=== PATIENT | male | born 1955 ===

== ENCOUNTER 2016-10-18 14:30 | Inpatient (IN) ==
[2016-10-18] MEDS ORDERED: NALOXONE 0.4 MG/ML VIAL ONE (14:50)
[2016-10-18] MEDS ORDERED: NALOXONE 0.4 MG/ML VIAL IV STA (14:53)
[2016-10-18] MEDS ORDERED: FLUMAZENIL 0.5 MG/5 ML VIAL IV ONE (15:23)
[2016-10-18] MEDS ORDERED: FLUMAZENIL 1 MG/10 ML VIAL IV ONE (15:30)
[2016-10-18] MEDS ORDERED: LORazepam 2 MG/1 ML VIAL ONE (15:37)
[2016-10-18] MEDS ORDERED: LORazepam 2 MG/1 ML VIAL IV STA (15:42)
--- NOTE | 2016-10-18 15:50 | Emergency Department Note ---
IAdi Emily, am scribing for, and in the presence of, Nick Rushing MD 15:38. Сергей Amaro Phillip K, MD, personally performed the services described in this documentation, ascribed by Yakelin Joshi in my presence, and it is both accurate and complete . Arrival - Arrival Chief Complaint: Seizure ED Nursing Triage Note: pt was pumping gas and went unresposive per . pt was unresposive at [facility] then woke up before having a sz. pt is sleepy but will answer questions Mode of Arrival: Stretcher Limitations: No Limitations Source: Patient - History of Present Illness HPI Narrative: Pt is a 60 y/o male who came to ED by EMS from [facility] for further evaluation of syncope and seizure activity that happened earlier today. Pt was pumping gas when he went unresponsive in front of , with possible of seizure after, but no activity happened, per spouse. He has no hx of seizure prior to this. He had bowel incontinence during episode, along with having one syncopal episode last week as well. Pt is sleepy in ED but reacts to stimuli and commands. Pt' s BP is low, 90/58 in ED. 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 Pt takes tacrolimus and mycophenolate for antirejection drugs. Pt's baseline creatinine 1.8 (per Dr. Barrera) and today was 2.9. Pt's head CT had no acute findings from [facility] and EKG showed sinus bradycardia of 58. Spouse notes that his heart medication and BP medication are fighting each other , and she is unsure of how much he took of what, this morning. Onset (ago): hour(s) Consistency: constant, intermittent Severity: moderate Severity scale (1-10): 5 Quality: other Allergies/Adverse Reactions: Allergies Allergy/AdvReac Type Severity Reaction Status Date / Time No Known Allergies Allergy Verified 07/28/15 13:55 Home Medications: Home Medications Medication Instructions Recorded Confirmed Type Tacrolimus [Prograf] 1 mg PO BID 07/28/15 11/05/15 History Aspirin [Ecotrin] 81 mg PO DAILY #100 tablet. 10/24/15 11/05/15 Rx Cholecalciferol (Vitamin D3) 2 tablet PO BID #120 tablet 10/24/15 11/05/15 Rx [Vitamin D3] Furosemide Tab [Lasix Tab] 40 mg PO BID #100 tablet 10/24/15 11/05/15 Rx Magnesium Chloride [Slow-Mag] 71.5 mg PO BID #120 tablet. 10/24/15 11/05/15 Rx Mycophenolate Mofetil Cap 750 mg PO BID #90 capsule 10/24/15 11/05/15 Rx [Cellcept] Spironolactone [Aldactone] 25 mg PO DAILY #60 tablet 10/24/15 11/05/15 Rx predniSONE TAB [PredniSONE] 5 mg PO DAILY #60 tablet 10/24/15 11/05/15 Rx Carvedilol [Carvedilol] 25 mg PO BID 11/05/15 11/05/15 History Review of System - Review of System 12 point system: reviewed and no additional remarkable complaints except as stated - Review of System Constitutional: Absent: fever Cardiovascular: Present: syncope (and possible seizure with no activity) Skin: Absent: rash Medical,Surgical,& Family Hx - Medical History Cardio: History of: Hypertension, [place], Cardiovascular Problems (STENTS) HEENT: History of: Eye Problem (GLASSES) Endocrine: No history of: Diabetes Mellitus (IDDM) Renal: History of: Renal Failure Musculoskeletal: History of: Amputation, Back/Neck Problems Other: History of: Skin Problems (skin cancer treated with radiation therapy) - Surgical History Cardiac Surgeries: Sugical HX of: Cardiac Catheterization Thoracic Surgeries: Surgical HX of;: Kidney (Renal Surgery) (TRANSPLANT 2004), Organ Transplant (renal transplant in 2004 at [facility]) Neurologic Surgeries: Patient denies: Neurologic Surgery HEENT Surgeries: Patient denies: Tonsilectomy & Adenoidectomy Abdominal Surgeries: Surgical HX of: Abdominal Surgery, Cholecystectomy, Colonoscopy, EGD Patient denies: Appendectomy Reproductive Surgeries: Surgical HX of;: Genitourinary Surgery Orthopedic Surgeries: Patient denies;: Total Hip Replacement, Total Knee Replacement - Family History Family History: Reports;: Family Hypertension - Social History Smoking Status: Current every day smoker Frequency of Alcohol Use: None Type of Drug Use: None Marital Status: Lives With:: Spouse Functional capacity: independent ambulation Exam Vital Signs: Vital Signs Temperature 97.2 F L 10/18/16 14:35 Pulse Rate 52 L 10/18/16 17:06 Respiratory Rate 12 10/18/16 17:06 Blood Pressure 131/76 10/18/16 17:06 O2 Sat by Pulse Oximetry 100 10/18/16 17:06 - General General appearance: lethargic (but follows commands) - Head Head exam: Present: atraumatic, normocephalic - Eye Eye exam: Present: PERRL (pupils are small but reactive), EOMI - ENT ENT exam: Present: mucous membranes moist. Absent: mucous membranes dry - Chest Chest inspection: Present: symmetric chest wall rise - Respiratory Respiratory exam: Present: normal lung sounds bilaterally. Absent: respiratory distress - Cardiovascular Cardiovascular exam: Present: bradycardia, normal heart sounds - Extremities Exam Extremities exam: Present: full ROM. Absent: pedal edema - Neurological Exam Neurological exam: Present: CN II-XII intact. Absent: motor sensory deficit - Skin Skin exam: Present: warm, dry Course Course Narrative: Patient discussed with the hospitalist will admit for further evaluation. Hospital desires patient be intubated to protect airway. We will intubated in the ED before sent upstairs. Procedures - Intubation Time out performed: Yes sedative: Etomidate paralytic: Vecuronium Laryngoscope: fiber optic video scope Assist Device Used: fiber optic device ET Tube Size: 8 Tube Placement Confirmation: visualized tube passing through cords, equal breath sounds bilaterally, no breath sounds over epigastrium, confirmation by capnometry Patient Tolerated Procedure: well, no complications Intubation Complications: none Results - Labs CBC & BMP: 10/18/16 16:27 10/18/16 16:27 Lab Results: I have reviewed the patients labs (I reviewed the labs from [facility] Labs: Laboratory Tests 10/18/16 16:27 WBC 16.7 H RBC 3.53 L Hgb 10.9 L Hct 32.0 L Plt Count 208 MPV 9.3 L Neut % (Auto) 89.6 H Lymph % (Auto) 2.8 L Neut # (Auto) 15.0 H Lymph # (Auto) 0.5 L [place] # (Auto) 1.1 H Laboratory Tests 10/18/16 10/18/16 10/18/16 16:27 16:27 16:27 Sodium 140 Potassium 3.1 L Chloride 106 Carbon Dioxide 22 Anion Gap 15.1 H BUN 67 H Creatinine 2.40 H GFR Calculation 29 BUN/Creatinine Ratio 27.00 H Glucose 179 H Calculated Osmolality 301.4 Lactic Acid 1.8 Calcium 8.8 Phosphorus 3.6 Magnesium 1.9 Total Bilirubin 0.80 AST 20 ALT 26 Alkaline Phosphatase 80 Ammonia Total Protein 6.5 Albumin 3.3 L Globulin 3.2 Albumin/Globulin Ratio 1.0 L Triglycerides 84 Cholesterol 116 LDL Cholesterol 63.0 VLDL Cholesterol 16.8 HDL Cholesterol 48 Heart Disease Risk Ratio 2.42 10/18/16 16:27 Sodium Potassium Chloride Carbon Dioxide Anion Gap BUN Creatinine GFR Calculation BUN/Creatinine Ratio Glucose Calculated Osmolality Lactic Acid Calcium Phosphorus Magnesium Total Bilirubin AST ALT Alkaline Phosphatase Ammonia 23 Total Protein Albumin Globulin Albumin/Globulin Ratio Triglycerides Cholesterol LDL Cholesterol VLDL Cholesterol HDL Cholesterol Heart Disease Risk Ratio - Diagnostic Findings Procedure: CT: report reviewed by me (CT head scan done at [facility] shows no acute intracranial abnormality.), Ultrasound: report reviewed by me (Carotid: Mild atherosclerotic changes at the bifurcations and origins of the internal carotid arteries. No significant flow-limiting stenosis.) Critical Care Time Critical Care Time: Yes Total Critical Care Time: 30 Disposition Clinical Impression: Altered mental status, Seizure, Hypotension, Syncope Case discussed with: patient, patient's family Disposition: Still a Patient Condition: Stable
--- NOTE | 2016-10-18 15:58 | Hospitalist History & Physical ---
<Jordi Fu - Last Filed: 10/18/16 16:31> Assessment and Plan (1) Syncope and collapse Status: Acute Assessment and plan: The patient was grossly altered at the time of ED presentation. Multiple reversal agents were given with minimal success. In addition, the patient's GCS was noted at 3 and the patient was observed to be experiencing Babinski reflexes. The patient failed to respond to painful stimuli. At this point, we are not certain if the patient's altered mental status secondary to benzodiazepine use or if the patient has experienced a true neurological event. We will reorder CT head to reevaluate. We will order carotid Dopplers and echocardiogram to evaluate for possible causes of syncope. In addition, we are greatly concerned regarding the patient's ability to be able to protect his airway. Although the patient is saturating appropriately now, we feel that the patient may indeed become compromised at some point in time. We have spoke with the ED staff and Dr. Rushing has agreed to electively intubate the patient. We will consult neurology to evaluate and assist during the clinical encounter. (2) Acute on chronic renal insufficiency Status: Acute History of Present Illness Chief complaint: Syncope History of present illness: This is a very pleasant 52-year-old male that presented to the ED at [facility] this afternoon for the evaluation of syncope. The patient has a very long and complex medical history significant for renal failure, IgA nephropathy, hypertension, myocardial infarction, skin cancer, chronic neck and back pain, and current nicotine use. 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 At the time of interview, the patient was grossly altered. His who was present at bedside service historian. The reported the onset of symptoms today. She reported that she and the patient were at a local gas station pumping gas into the car when the patient became very weak and subsequently passed out. She reported that he was able to tell her that he was "feeling strange" and proceeded to lower himself to the ground. She in turn got out of the car and along with the help of another person present at the gas station, assist the patient into the car. She reported that she was less than 1 mile away from the [facility]. She proceeded to transport the patient there for further evaluation.The patient was assessed at the time of presentation at the [facility]. Shortly upon arrival, the patient experienced seizure activity. A CT scan was performed which was essentially unremarkable. The patient was subsequently transferred to [facility] for further evaluation. The patient was assessed at the time of ED presentation. The patient was noted to be grossly lethargic. Multiple reversal agents were administered with minimal results. Shortly after arrival here at [facility] , the patient experienced another episode of seizure activity and Lorazepam was given. At this time of assessment, the patient was noted to be unresponsive. In addition, the patient's GCS was noted at 3. After brief discussion with both Dr. Rushing and Dr. Dougherty, the patient will be admitted to the hospitalist service for continuation of care. Due to the severity of the patient's current neurological status, a neurology consultation has been requested. Incidentally, the reported that the patient had an episode similar in nature on last week in which he experienced syncope and bowel incontinence. She reported that the patient has never been diagnosed with any type of seizure disorder in the past. Home medications have been reviewed and reconciled. Home medications have been placed on hold due to gross lethargy. CODE STATUS discussed; patient is a FULL CODE. Home Medications Medication Instructions Recorded Confirmed Type Tacrolimus [Prograf] 1 mg PO BID 07/28/15 11/05/15 History Aspirin [Ecotrin] 81 mg PO DAILY #100 tablet. 10/24/15 11/05/15 Rx Cholecalciferol (Vitamin D3) 2 tablet PO BID #120 tablet 10/24/15 11/05/15 Rx [Vitamin D3] Furosemide Tab [Lasix Tab] 40 mg PO BID #100 tablet 10/24/15 11/05/15 Rx Magnesium Chloride [Slow-Mag] 71.5 mg PO BID #120 tablet. 10/24/15 11/05/15 Rx Mycophenolate Mofetil Cap 750 mg PO BID #90 capsule 10/24/15 11/05/15 Rx [Cellcept] Spironolactone [Aldactone] 25 mg PO DAILY #60 tablet 10/24/15 11/05/15 Rx predniSONE TAB [PredniSONE] 5 mg PO DAILY #60 tablet 10/24/15 11/05/15 Rx Carvedilol [Carvedilol] 25 mg PO BID 11/05/15 11/05/15 History Allergies Allergy/AdvReac Type Severity Reaction Status Date / Time No Known Allergies Allergy Verified 07/28/15 13:55 Medical,Surgical,& Family Hx - Medical History Cardio: History of: Hypertension, [place], Cardiovascular Problems (STENTS) Neurology: No history of: Seizures HEENT: History of: Eye Problem (GLASSES) Endocrine: No history of: Diabetes Mellitus (IDDM) Renal: History of: Renal Failure Musculoskeletal: History of: Amputation, Back/Neck Problems Other: History of: Skin Problems (skin cancer treated with radiation therapy) - Surgical History Cardiac Surgeries: Sugical HX of: Cardiac Catheterization Thoracic Surgeries: Surgical HX of;: Kidney (Renal Surgery) (TRANSPLANT 2004), Organ Transplant (renal transplant in 2004 at [facility]) Neurologic Surgeries: Patient denies: Neurologic Surgery HEENT Surgeries: Patient denies: Tonsilectomy & Adenoidectomy Abdominal Surgeries: Surgical HX of: Abdominal Surgery, Cholecystectomy, Colonoscopy, EGD Patient denies: Appendectomy Reproductive Surgeries: Surgical HX of;: Genitourinary Surgery Orthopedic Surgeries: Patient denies;: Total Hip Replacement, Total Knee Replacement - Family History Family History: Reports;: Family Hypertension - Social History Smoking Status: Current every day smoker Have you smoked in the last 12 months: Yes Time spent discussing smoking cessation with patient: more than 10 minutes Frequency of Alcohol Use: None Type of Drug Use: None Marital Status: Lives With:: Spouse Functional capacity: independent ambulation ROS unobtainable: due to mental status 12 point system: reviewed and no additional remarkable complaints except as stated - Constitutional Constitutional: Present: lethargy, weakness - EENT Eyes: Absent: blurry vision, diplopia, loss of vision Ears: Absent: as per HPI, decreased hearing, ear discharge Nose, mouth and throat: Present: as per HPI. Absent: dysphagia, epistaxis - Cardiovascular Cardiovascular: Present: lightheadedness. Absent: dyspnea, orthopnea - Respiratory Respiratory: Absent: cough, dyspnea - Gastrointestinal Gastrointestinal: Absent: abdominal pain, bloating - Genitourinary Genitourinary: Absent: difficulty urinating, dysuria - Musculoskeletal Musculoskeletal: Absent: arthralgias, back pain - Neurological Neurological: Present: convulsions, focal weakness, syncope - Psychiatric Psychiatric: Absent: anxiety, auditory hallucinations - Endocrine Endocrine: Absent: cold intolerance, fatigue Exam - Constitutional Vitals: Period Temp Pulse Resp BP Sys/Mckinney Pulse Ox Last 24 Hr 97.2 F-97.2 F 54-54 16-16 90-90/58-58 100 General appearance: normal weight - Head Head exam: Present: normal inspection, normocephalic, atraumatic - Eye Eye exam: Present: EOMI Pupils: Present: constricted - ENT ENT exam: Present: normal exam, normal external ear exam, normal oropharynx - Neck Neck exam: Present: normal inspection. Absent: lymphadenopathy, meningismus, tenderness, thyromegaly - Respiratory Respiratory exam: Present: clear to auscultation bilaterally. Absent: rales, rhonchi, stridor, wheezes - Cardiovascular Cardiovascular exam: Absent: carotid bruit, diastolic murmur, gallop, JVD, rubs , systolic murmur, tachycardia - GI/Abdominal GI/Abdominal exam: Present: normal bowel sounds, soft - Extremities Exam Extremities exam: Present: normal inspection, normal capillary refill, full ROM. Absent: edema - Back Exam Back exam: Present: normal inspection - Neurological Exam Neurological exam: Present: altered, motor sensory deficit (DTR; 1+), other ( Babinski reflexes noted; GCS-3) - Psychiatric Psychiatric exam: Present: other (unrepsonsive) - Skin Skin exam: Present: normal color, warm, dry (Pupils 2+; pinpoint; ) <White,Kennedi R - Last Filed: 10/18/16 16:48> Assessment and Plan (1) Syncope and collapse Status: Acute Assessment and plan: Could be secondary to hypotension. Hold blood pressure medicines. Checking for adrenal insufficiency. We will give stress dose steroid Current Visit: No (2) Unresponsive Status: Acute Assessment and plan: Unresponsive to painful stimuli and sternal rub. Patient received some Ativan for seizures in the emergency room. Stat head CT to look for bleed. Concern as he has bilateral upgoing Babinski's. Stat MRI and MRA of the head. Carotid ultrasound already done, need stat echo, intubate for airway protection consult Dr. Lynn for management of vent Current Visit: Yes (3) Acute on chronic renal failure Status: Acute Assessment and plan: Aggressively hydrate, hold all blood pressure medicines. Fear he may be in jeopardy of losing his transplant. Consult Dr. Mena SHRUTHI Current Visit: Yes (4) Seizures Status: Acute Assessment and plan: keppra and versed, intubation for airway protection, Consult Dr. De Paz, EEG. Current Visit: Yes (5) Hypotension Status: Acute Assessment and plan: NS bolus per sepsis order set. lactic acid ordered. Current Visit: Yes (6) History of renal transplant Status: Chronic Assessment and plan: consult dr. Mena stress dose steroids and tacrolimus and mycophenolate Current Visit: No (7) Hypokalemia Status: Acute Assessment and plan: based on [facility], will repeat Current Visit: No (8) Leukocytosis Status: Acute Assessment and plan: sepsis order set used, blood cx, repeat cbc, ua, zosyn, daptomycin Current Visit: Yes History of Present Illness History of present illness: Mr. Claudio is a 60 year old male seen and examined. agree with above. Patient unresponsive to sternal rub, asked Dr. Castorena to electively intubate patient for airway protection. Medical,Surgical,& Family Hx - Medical History Neurology: History of: Seizures Exam - Constitutional Vitals: Period Temp Pulse Resp BP Sys/Mckinney Pulse Ox Last 24 Hr 97.2 F-97.2 F 54-54 16-16 90-90/58-58 100 General appearance: severe distress - Eye Eye exam: Absent: scleral icterus - Respiratory Respiratory exam: Present: decreased breath sounds - Cardiovascular Cardiovascular exam: Present: regular rate and rhythm - Neurological Exam Neurological exam: Present: other Results - Labs Labs: [facility] labs WBC is 14.5, hemoglobin 12, platelets 226, BUN 71, sodium 139, potassium 3.2, troponin less than 0.05, CPK 51, calcium 9.1, creatinine 2.9, PT 10.4, INR 1, PTT 27. PH 7.39, PCO2 32, PO2 93, lactic acid 1.6, bicarb 19 - Diagnostic Findings Procedure: Chest x-ray: report reviewed by me (Nothing acute. Talk to our records), CT: report reviewed by me (Head CT negative per [facility] record)
[2016-10-18] MEDS ORDERED: POTASSIUM CHLORIDE RIDER 10 MEQ in PREMIX 1 EACH IV SCH (16:30)
[2016-10-18 16:42] LABS: Basophils % 0.1 % (0.0-0.8); Eosinophils % 0.1 % (0.00-10.9); Hemoglobin 10.9 GM/DL (14.0-18.0); Immature Granulocytes % 0.9 %; Immature Granulocytes Absolute 0.15 #; Lymphocytes # 0.5 10*3/uL (1.4-4.0); Lymphocytes % 2.8 % (21.2-54.2); Mean Corpuscular HGB Conc 34.1 GM/DL (32-36); Mean Corpuscular Hemoglobin 31 PG (27-34); Mean Corpuscular Volume 90.7 FL (87-102); Mean Platelet Volume 9.3 FL (9.6-12.0); Monocytes # 1.1 10*3/uL (0.11-0.8); Monocytes % 6.5 % (1.7-12.7); Neutrophils % 89.6 % (38.7-73.9); Platelet Count 208 T/CUMM (130-400); Red Blood Count 3.53 MC/CUMM (3.8-5.5); Red Cell Distribution Width 13.4 % (9.3-17.3); White Blood Count 16.7 T/CUMM (4-12)
--- NOTE | 2016-10-18 16:44 | Ultrasound Report ---
Exam: Carotid Doppler Date: October 18, 2016 at 1555 hours Indication: Syncope Technique: Duplex scan of the bilateral carotid arteries using B-mode/grayscale imaging and Doppler spectral analysis and color flow. Findings: Right Flow velocities centimeters per second Common carotid artery: 84.6 cm/s Proximal ICA: 61.3 cm/s Distal ICA: 97.1 cm/s External carotid artery: 126.6 cm/s Vertebral artery: 62.5 cm/s ICA/CCA ratio: 1.1 Measurements in millimeters Distal ICA: 0.58 cm Left: Flow velocities centimeters per second Common carotid artery: 137.6 cm/s Proximal ICA: 77.2 cm/s Distal ICA: 77.3 cm/s External carotid artery: 102 cm/s Vertebral artery: 49.5 cm/s ICA/CCA ratio: 0.6 Measurements in millimeters Distal ICA: 0.53 No significant atherosclerotic plaque or luminal stenosis is evident within either internal carotid artery. Color flow is present in all visualized vessels with Doppler analysis. Impression: 1. Mild atherosclerotic changes at the bifurcations and origins of the internal carotid arteries. No significant flow-limiting stenosis Today studies were performed utilizing indirect NASCET criteria The ultrasound images were stored and captured PROCEDURE INTERPRETED AT [facility] DEPARTMENT OF RADIOLOGY Final Report Signed by: Asael Butts
--- NOTE | 2016-10-18 16:54 | CT Report ---
Exam: CT head without intravenous contrast Clinical History: 60-year-old male presents with seizure and altered mental status Technique: Axial computed tomography images of the head/brain without intravenous contrast Comparison: October 21, 2015 Findings: Brain: Mild microangiopathic small vessel ischemic changes, stable. Butts-white matter distinction maintained. No mass effect. No intra or extra-axial hemorrhage. Ventricles: Unremarkable. No ventriculomegaly. Bones/joints: Calvarium is intact Soft tissues: Unremarkable Sinuses: No active paranasal sinus process Mastoid air cells: Unremarkable visualized. Impression: 1. No acute intracranial abnormality. PROCEDURE INTERPRETED AT [facility] DEPARTMENT OF RADIOLOGY Final Report Signed by: Asael Butts
[2016-10-18 17:09] LABS: Risk Ratio 2.42; VLDL CHOLESTEROL 16.8 MG/DL
[2016-10-18 17:10] LABS: Albumin 3.3 G/DL (3.4-5.0); Bilirubin,Total 0.8 MG/DL (0.2-1.0); Calcium 8.8 MG/DL (8.5-10.1); Magnesium 1.9 MG/DL (1.8-2.4); Osmolality,Calculated 301.4 MOS/KG (273-304); Phosphorous 3.6 MG/DL (2.5-4.9); Potassium 3.1 MMOL/L (3.5-5.1); Total Protein 6.5 G/DL (6.4-8.3)
--- NOTE | 2016-10-18 17:17 | XRay Report ---
Portable chest October 18, 2016 at 1649 hours Indication: Shortness of breath, respiratory failure Comparison: October 16, 2015 Findings: Cardiomediastinal contours are stable. Satisfactory intubation and esophageal gastric tube placement. Lungs are clear bilaterally. No acute osseous abnormalities. Visualized upper abdomen demonstrates no acute pathology. Impression: Uncomplicated intubation and esophageal gastric tube placement. No acute cardiopulmonary findings PROCEDURE INTERPRETED AT [facility] DEPARTMENT OF RADIOLOGY Final Report Signed by: Asael Butts
[2016-10-18] MEDS ORDERED: LABETALOL 20 MG/4 ML SYRINGE IV PRN (17:22)
[2016-10-18 17:45] LABS: ABG Base Excess -3.6 MMOL/L (-2.5-2.5); ABG HCO3 21.4 MMOL/L (20-26); ABG Oxygen Saturation 99.5 % (95-100); ABG PH 7.382 (7.35-7.45); ABG TCO2 18.7 MMOL/L (23-27); Pt O2 Delivery Device Ventilator
[2016-10-18 17:49] LABS: Apearance,Urine CLEAR (Clear); Bacteria,Urine Occasional /HPF (Few); Bilirubin,Urine Negative (Negative); Blood, Urine Negative (Negative); Glucose,Urine (UA) Negative (Negative); Hyaline Casts,Urine 19 /LPF (0-3); Ketones,Urine Negative (Negative); Mucus,Urine Occasional /LPF (Occasional); Nitrite,Urine Negative (Negative); Protein,Urine Negative; Squamous Epithelial Cell,Urine Occasional /HPF (0-10); Urine Color Yellow (Yellow); Urine Urobilinogen < 2.0 EU/DL (0.2-1.0); WBC,Urine 1 /HPF (0-6)
[2016-10-18] MEDS ORDERED: SODIUM CHLORIDE 0.9% 2,000 ML IV ONE (18:00)
[2016-10-18 18:02] LABS: Barbiturates Screen,Urine Negative (Negative); Benzodiazepines Screen,Urine Negative (Negative); Cannabinoid Screen,Urine Negative (Negative); Opiate Screen,Urine Negative (Negative); Phencyclidine Screen,Urine Negative (Negative)
[2016-10-18] MEDS: HYDROCORTISONE 100 MG VIAL IV SCH (18:08)
[2016-10-18] MEDS: PIPERACILLIN/TAZOBACTAM 3,375 MG in SODIUM CHLORIDE 0.9% 100 ML IV SCH (18:20)
--- NOTE | 2016-10-18 18:25 | Nephrology Consult Note ---
History of Present Illness Chief complaint: CRF, renal transplant History of present illness: Mr. Claudio is a 60 year old male who had a witnessed syncopal episode while pumping gas. He reportedly had a seizure after this in the [facility] ER. He was poorly responsive on arrival here. He was intubated to protect his airway. He was transiently hypotensive. Systolic blood pressure is now in the 140s. He is not requiring pressors. Heart rate is in the 40s. 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 He received a transplant in 2004. He has been followed by Dr. Barrera Home Medications Medication Instructions Recorded Confirmed Type Tacrolimus [Prograf] 1 mg PO BID 07/28/15 11/05/15 History Aspirin [Ecotrin] 81 mg PO DAILY #100 tablet. 10/24/15 11/05/15 Rx Cholecalciferol (Vitamin D3) 2 tablet PO BID #120 tablet 10/24/15 11/05/15 Rx [Vitamin D3] Furosemide Tab [Lasix Tab] 40 mg PO BID #100 tablet 10/24/15 11/05/15 Rx Magnesium Chloride [Slow-Mag] 71.5 mg PO BID #120 tablet. 10/24/15 11/05/15 Rx Mycophenolate Mofetil Cap 750 mg PO BID #90 capsule 10/24/15 11/05/15 Rx [Cellcept] Spironolactone [Aldactone] 25 mg PO DAILY #60 tablet 10/24/15 11/05/15 Rx predniSONE TAB [PredniSONE] 5 mg PO DAILY #60 tablet 10/24/15 11/05/15 Rx Carvedilol [Carvedilol] 25 mg PO BID 11/05/15 11/05/15 History Allergies Allergy/AdvReac Type Severity Reaction Status Date / Time No Known Allergies Allergy Verified 07/28/15 13:55 Medical,Surgical,& Family Hx - Medical History Cardio: History of: Hypertension, [place], Cardiovascular Problems (STENTS) Neurology: History of: Seizures HEENT: History of: Eye Problem (GLASSES) Endocrine: No history of: Diabetes Mellitus (IDDM), Diabetes Mellitus (NIDDM) Renal: History of: Renal Failure Musculoskeletal: History of: Amputation, Back/Neck Problems Other: History of: Cancer, Skin Problems (skin cancer treated with radiation therapy) - Surgical History Cardiac Surgeries: Sugical HX of: Cardiac Catheterization Thoracic Surgeries: Surgical HX of;: Kidney (Renal Surgery) (TRANSPLANT 2004), Organ Transplant (renal transplant in 2004 at [facility]) Neurologic Surgeries: Patient denies: Neurologic Surgery HEENT Surgeries: Patient denies: Tonsilectomy & Adenoidectomy Abdominal Surgeries: Surgical HX of: Abdominal Surgery, Cholecystectomy, Colonoscopy, EGD Patient denies: Appendectomy Reproductive Surgeries: Surgical HX of;: Genitourinary Surgery Orthopedic Surgeries: Surgical HX of;: Total Hip Replacement Patient denies;: Total Knee Replacement - Family History Family History: Reports;: Family Hypertension - Social History Smoking Status: Former smoker Frequency of Alcohol Use: None Type of Drug Use: None Review of Systems ROS unobtainable: due to endotracheal tube Exam - Vital Signs Vital signs: Period Temp Pulse Resp BP Sys/Mckinney Pulse Ox Last 24 Hr 97.2 F-97.2 F 52-54 12-16 90-131/58-76 100-100 Exam: Gen.: Sedated on ventilator ENT: Pupils equal round reactive to light. Neck: Supple. No JVD or bruit. Cardiovascular: Regular rate and rhythm. No murmur rub or gallop Lungs: Clear Abdomen: Soft. Nontender. Positive bowel sounds. No organomegaly Extremities: No edema Results - Labs CBC & BMP: 10/18/16 16:27 10/18/16 16:27 Assessment and Plan (1) Chronic renal failure Status: Chronic Assessment and plan: 60-year-old man with: * Renal transplant 2004. Tacrolimus level ordered * Chronic renal failure. Creatinine measured 3-3.7 on several occasions October 2015. One reading of 1.9 also October 2015. More recent baseline not known * Syncope. Heart rate is in the low 40s. No ischemic changes. Coreg held * Remote SD * Hypertension Current Visit: No Qualifiers: Chronic kidney disease stage: stage 3 (moderate) Qualified Code(s): N18.3 - Chronic kidney disease, stage 3 (moderate) (2) Seizure Status: Acute Current Visit: Yes (3) Syncope Status: Acute Current Visit: Yes (4) History of renal transplant Status: Chronic Current Visit: No
[2016-10-18] MEDS ORDERED: SODIUM CHLORIDE 0.9% 1,000 ML IV ONE (18:27)
[2016-10-18] MEDS: MIDAZOLAM 100 MG in SODIUM CHLORIDE 0.9% 80 ML IV SCH (18:31)
[2016-10-18] MEDS: ASPIRIN 300 MG SUPP RECTAL SCH (19:34)
[2016-10-18 21:43] LABS: Burr Cells Few; Platelet Estimate Normal; Poikilocytosis Slight
[2016-10-18] MEDS: FAMOTIDINE 20 MG/2 ML VIAL IV SCH (21:50)
[2016-10-18] MEDS: ENOXAPARIN 40 MG/0.4 ML SYRINGE SUBCUT SCH (21:50)
[2016-10-18] MEDS: POTASSIUM CHLORIDE RIDER 10 MEQ in PREMIX 1 EACH IV PRN ×3 (21:50→23:52)
[2016-10-18] MEDS: TACROLIMUS 0.5 MG CAPSULE PO SCH (21:50)
[2016-10-18] MEDS: MYCOPHENOLATE MOFETIL 250 MG CAPSULE PO SCH (21:50)
[2016-10-19] MEDS: HYDROCORTISONE 100 MG VIAL IV SCH ×4 (00:14→18:20)
[2016-10-19] MEDS: PIPERACILLIN/TAZOBACTAM 3,375 MG in SODIUM CHLORIDE 0.9% 100 ML IV SCH ×3 (01:19→18:25)
[2016-10-19 03:47] LABS: ABG Base Excess -5.7 MMOL/L (-2.5-2.5); ABG HCO3 19.8 MMOL/L (20-26); ABG Oxygen Saturation 99.4 % (95-100); ABG PCO2 34.7 MM HG (35-48); ABG PH 7.351 (7.35-7.45); ABG TCO2 17.3 MMOL/L (23-27); Allen Test Positive; Pt O2 Delivery Device Ventilator
[2016-10-19] MEDS: MIDAZOLAM 100 MG in SODIUM CHLORIDE 0.9% 80 ML IV SCH ×2 (05:26→18:54)
[2016-10-19 05:56] LABS: Basophils % 0.1 % (0.0-0.8); Hematocrit 31.1 VOL% (42.0-52.0); Hemoglobin 10.5 GM/DL (14.0-18.0); Immature Granulocytes % 0.7 %; Immature Granulocytes Absolute 0.08 #; Lymphocytes # 0.4 10*3/uL (1.4-4.0); Lymphocytes % 3.4 % (21.2-54.2); Mean Corpuscular HGB Conc 33.8 GM/DL (32-36); Mean Corpuscular Hemoglobin 31 PG (27-34); Mean Corpuscular Volume 91.7 FL (87-102); Mean Platelet Volume 9.6 FL (9.6-12.0); Monocytes # 0.3 10*3/uL (0.11-0.8); Monocytes % 2.6 % (1.7-12.7); Neutrophils # 11.1 10*3/uL (1.4-7.4); Neutrophils % 93.2 % (38.7-73.9); Platelet Count 197 T/CUMM (130-400); Red Blood Count 3.39 MC/CUMM (3.8-5.5); Red Cell Distribution Width 13.6 % (9.3-17.3); White Blood Count 11.9 T/CUMM (4-12)
[2016-10-19 06:38] LABS: Hypochromasia 1+; Lymphocytes 3 % (20-55); Segmented Neutrophils 95 % (50-85); Total Cells Counted 100
[2016-10-19 06:39] LABS: Acanthocytes Few; Microcytosis 1+; Ovalocytes Slight
[2016-10-19 06:40] LABS: Platelet Estimate Adequate
[2016-10-19 06:47] LABS: Risk Ratio 2.48; VLDL CHOLESTEROL 13.6 MG/DL
[2016-10-19 06:49] LABS: Albumin 2.9 G/DL (3.4-5.0); Bilirubin,Total 1.2 MG/DL (0.2-1.0); Calcium 8.7 MG/DL (8.5-10.1); Osmolality,Calculated 304.1 MOS/KG (273-304); Potassium 3.4 MMOL/L (3.5-5.1); Total Protein 5.9 G/DL (6.4-8.3)
[2016-10-19] MEDS: FAMOTIDINE 20 MG/2 ML VIAL IV SCH ×2 (09:16→20:36)
[2016-10-19] MEDS: MYCOPHENOLATE MOFETIL 250 MG CAPSULE PO SCH ×2 (09:17→20:36)
[2016-10-19] MEDS: TACROLIMUS 0.5 MG CAPSULE PO SCH ×2 (09:17→20:36)
[2016-10-19] MEDS: ASPIRIN 300 MG SUPP RECTAL SCH ×2 (09:17→19:42)
--- NOTE | 2016-10-19 09:48 | EKG Report ---
Stationary ECG Study [facility] ER Test Date: 10/18/2016 2:52:47 PM Pat Name: JUSTIN CULVER Department: Room: 116 Gender: M [employer]: : 1955 Requested by: Nick Amaya Order Number: [id number] Reading MD: JAMES RAMOS Intervals Parker Rate: 53 P: 2 WV: 184 QRS: -23 QRSD: 99 T: -81 QT: 453 QTc: 437 Interpretive Statements SINUS BRADYCARDIA BORDERLINE LEFT AXIS DEVIATION LEFT VENTRICULAR HYPERTROPHY AND ST-T CHANGE Electronically Signed On 10-19-16 15:32:41 CDT by JAMES RAMOS [email or web address]
--- NOTE | 2016-10-19 11:03 | Hospitalist Progress Note ---
Assessment and Plan (1) Acute on chronic renal insufficiency Status: Acute Assessment and plan: The patient's chronic kidney disease stage III has a usual 1.8 mg/dL creatinine baseline. The patient has had nausea vomiting and diarrhea. Liquid stools remain. Will go to study of the stools to see if there is any bacterial infection. We will hydrate as required and consult with the environmental health and safety intern concerning the patient's tacrolimus. Current Visit: No (2) History of renal transplant Status: Chronic Current Visit: No (3) Syncope and collapse Status: Acute Current Visit: No Hospitalist: Subjective Interval history: The patient presented to hospital with syncopal episode and tonic-clonic seizure activity. The patient is not having any jerking spells this morning. He is having liquid stools which are drained with a bowel management system. Chest is clear and abdomen soft. The patient is tolerating CPAP trials. Exam - Constitutional Vitals: Period Temp Pulse Resp BP Sys/Mckinney Pulse Ox Last 24 Hr 96.6 F-97.2 F 43-54 10-19 77-162/49-87 99-100 Exam: Constitutional System: Mild distress. No tremulousness. Head: Normocephalic, atraumatic. Ears, Nose and Throat System: No evidence of Otitis or Mastoiditis. No epistaxis or discharge Eyes System: Pupils equal, round, and reactive. Extraocular muscles intact. Neck: Supple, without adenopathy, No jugular venous distention. No thyromegaly , neck mass, or prior surgery apparent. Respiratory System: Chest clear to auscultation. Cardiovascular System: Heart with regular rate and rhythm. No murmur. GI System: Abdomen soft, nontender. Hypo-active bowel sounds present. There is a transplanted kidney in the right suprapubic area Musculoskeletal System: limbs with no pedal edema. Full distal pulses. Results - Labs CBC & BMP: 10/19/16 05:13 10/19/16 05:13 Lab Results: I have reviewed the past 24 hour labs
[2016-10-19 12:04] LABS: ABG Base Excess -5.6 MMOL/L (-2.5-2.5); ABG HCO3 19.8 MMOL/L (20-26); ABG Oxygen Saturation 99.6 % (95-100); ABG PCO2 31.3 MM HG (35-48); ABG PH 7.381 (7.35-7.45); ABG TCO2 16.7 MMOL/L (23-27)
[2016-10-19 12:23] LABS: Free T4 (Free Thyroxine) 0.93 NG/DL (0.76-1.46); Thyroid Stimulating Hormone 0.065 uIU/ml (0.358-3.74)
--- NOTE | 2016-10-19 13:01 | CT Report ---
Exam: CT scan of brain without contrast Date: 10/19/2016 Indication: Altered mental status changes stroke alert Comparison: 10/18/2016 Patient's classification: Inpatient ICU Technical: Images were obtained from the skull base to the vertex without the use of intravenous contrast. Dose reduction was performed with decreasing kv and mA and automated exposure Total DLP: 1081.1 mGy*cm Findings: The brainstem, cerebellum and cerebral hemispheres are intact. The paranasal sinuses are unremarkable. The mastoids are intact. The ventricles are located in normal position without midline shift or mass effect. There is slight asymmetry of the ventricular system right greater than left in size. The globes and sella are intact. The calvarium is unremarkable. Impression: 1. No acute hemorrhage, infarction or mass effect clearly demonstrated. PROCEDURE INTERPRETED AT [facility] DEPARTMENT OF RADIOLOGY Final Report Signed by: Dr. Rohan Silva
[2016-10-19 13:33] LABS: Basophils % 0.1 % (0.0-0.8); Hematocrit 31.9 VOL% (42.0-52.0); Hemoglobin 10.9 GM/DL (14.0-18.0); Immature Granulocytes % 0.5 %; Immature Granulocytes Absolute 0.06 #; Lymphocytes # 0.4 10*3/uL (1.4-4.0); Lymphocytes % 3.4 % (21.2-54.2); Mean Corpuscular HGB Conc 34.2 GM/DL (32-36); Mean Corpuscular Hemoglobin 31 PG (27-34); Mean Corpuscular Volume 91.4 FL (87-102); Mean Platelet Volume 9.5 FL (9.6-12.0); Monocytes # 0.3 10*3/uL (0.11-0.8); Monocytes % 2.8 % (1.7-12.7); Neutrophils # 10.4 10*3/uL (1.4-7.4); Neutrophils % 93.2 % (38.7-73.9); Platelet Count 204 T/CUMM (130-400); Red Blood Count 3.49 MC/CUMM (3.8-5.5); Red Cell Distribution Width 13.6 % (9.3-17.3); White Blood Count 11.2 T/CUMM (4-12)
[2016-10-19] MEDS: SODIUM CHLORIDE 0.9% 1,000 ML IV SCH (13:38)
[2016-10-19 13:41] LABS: Albumin 2.8 G/DL (3.4-5.0); Bilirubin,Total 0.7 MG/DL (0.2-1.0); Calcium 8.8 MG/DL (8.5-10.1); Osmolality,Calculated 306.8 MOS/KG (273-304); Potassium 3.6 MMOL/L (3.5-5.1); Total Protein 6.3 G/DL (6.4-8.3)
--- NOTE | 2016-10-19 13:46 | Pulmonology Consult Note ---
History of Present Illness Chief complaint: Seizure. bradycardia. Ventilator. Syncope History of present illness: Mr. Claudio is a 60 year old male whom I been asked see in pulmonary consultation for evaluation and treatment. This patient had an episode of syncope. He was referred here from [facility]. Shortly after arrival patient experienced seizure activity. He was extremely lethargic. He required intubation mechanical ventilation. This patient is sedated and was unable to give me a review of systems. Review of systems is therefore negative. I made ventilator adjustments on the patient during the night on 10/18/2016. I saw her much earlier this morning. He looks stronger and he was awake. Placed him on a T-tube and he did very well. Preparations were made to extubate the patient but before he was extubated he stopped breathing. He was placed back on the ventilator and at the present time I interpret this is a change in his neurological status. Neuro consult is pending He has a complex history. See below Allergies. None known Home medicines. Prograf 1 mg twice daily baby aspirin once a day, vitamin D3 2 tablets twice daily, Lasix 40 twice daily, Slow-Mag 71.5 mg twice daily, CellCept 750 mg p.o. twice daily, Aldactone 25 mg once a day, prednisone 5 mg daily, Coreg 25 mg twice daily Past history high blood pressure. Myocardial infarction. Cardiac stents. Cardiovascular disease. No past history of seizures. Past history of amputation. Chronic back and neck problems. History of skin cancers treated with radiation. Renal transplant in 2004. Transplant was done at [facility].tonsillectomy and adenoidectomy. Tonsillectomy and adenoidectomy. Cholecystectomy. Left total hip replacement. Social history. Smokes cigarettes on a daily basis. Denies alcohol and drugs. . Family history. Positive high blood pressure Chest x-ray. 10/18/2016. My interpretation. Normal heart size. Normal pulmonary arteries. No hilar adenopathy. Calcification aortic knob lung garcia are clear with no masses infiltrates or pulmonary edema. Endotracheal tube is in good position. Patient appears to have an implantable device in his lower thoracic spine. CT of the head. 10/18/2016. No acute hemorrhage, infarction or mass were clearly demonstrated. It was noted that the brain stem, cerebellum and cerebral hemispheres were intact. The paranasal sinuses were unremarkable. The mastoids were intact. The ventricles were located in normal position without a midline shift or mass-effect. There was slight asymmetry of the ventricular system. The right was greater than left in size. The globes and sella turcica were intact. The calvarium was unremarkable Microbiology. No growth. ABGs on mechanical ventilation and FiO2 of 50% at 3:30 AM today showed a pH is 7.35, PCO2 34.7, PO2 of 246 and a bicarb of 19.5 ABGs on 10/19/2016 on FiO2 of 50% and a T-tube showed a pH of 7.38, PCO2 of 31.3, PO2 of 212 and a bicarb of 19.8. These were taken before the apneic spell Lab. Admit sodium was 3.1 and what replacement is 3.4. Sodium is normal. Creatinine is 2.1 with a BUN of 66. Liver function tests are normal. Protein and albumin are low at 5.92.9 respectively. Admit white count was 16,700 with 89.6 segs. Today's white count is 11,900 with 93 segs. H&H is 10.5/31.1. Indices are normal. Platelets are 197,000. PTT is 29.5. Urinalysis shows no evidence of infection. Toxicology is negative. Physical exam. Vital signs. See below. No recorded fever. Psychiatric. Patient was alert and can cooperate. After his apneic spell he could not be aroused for 30-40 minutes. At the present time he is beginning to move around and try to wake up. Face. Symmetrical. No edema of the lips or tongue Neck. Symmetrical. No mass. No meningismus. Lymphatics. No submandibular cervical supraclavicular or epitrochlear adenopathy Chest. Clear breath sounds. Heart. No gallop Abdomen. Nondistended. Rare scattered bowel sounds and rectal deferred Extremities. No significant edema. Skin of the face and hands show no cancerous infectious lesions. No other areas of skin were examined. Neurologic. Prior to syncopal episode the cranial nerves appeared to be intact and patient moves all 4 extremities. The remainder the physical exam is negative Impression. 1. New onset of multiple seizures. Etiology undetermined. Neurology evaluation recommendations pending. 2. Acute episodes of true syncope while on T-tube. Order to extubate has been canceled 3. Renal transplant. On immunosuppressant agents. 4. High blood pressure 5. Past history of heart disease including stents and myocardial infarction 6. History of skin cancer 7. History of chronic back and neck problems. Patient appears to have an implantable device in his lower thoracic spine. 8. Past history of total knee replacement and left total hip replacement 9. See past history 10. Stool positive for blood. Recent history of nausea vomiting diarrhea. 11. History of heart disease requiring placement of stents. Past history of myocardial infarction Plan. 1. Weaning protocol which I started on 10/18/2016. Presently extubation has been canceled secondary to apneic episode. I wonder if this involved seizure activity. 2. Physical therapy protocol 3. Doppler venograms of the lower extremities. 4. H2 blockers. Patient has positive stool 5. Sputum for Gram stain culture and sensitivity 6. Daily chest x-rays and ABGs Home Medications Medication Instructions Recorded Confirmed Type Tacrolimus [Prograf] 1 mg PO BID 07/28/15 10/19/16 History Aspirin [Ecotrin] 81 mg PO DAILY #100 tablet. 10/24/15 10/19/16 Rx Furosemide Tab [Lasix Tab] 40 mg PO BID #100 tablet 10/24/15 10/19/16 Rx Mycophenolate Mofetil Cap 750 mg PO BID #90 capsule 10/24/15 10/19/16 Rx [Cellcept] Carvedilol [Carvedilol] 25 mg PO BID 11/05/15 10/19/16 History Bisacodyl Tab [Dulcolax Tab] 2 tablet PO TID PRN 10/19/16 10/19/16 History Cholecalciferol [Vitamin D3] 1,000 unit PO DAILY 10/19/16 10/19/16 History Cyclobenzaprine [Flexeril] 5 mg PO BID PRN 10/19/16 10/19/16 History Lubiprostone [Amitiza] 1 capsule PO DAILY 10/19/16 10/19/16 History Pantoprazole Tab [Protonix Tab] 40 mg PO DAILY 10/19/16 10/19/16 History Sod Phos Di, Stevens/K Phos Stevens 2 tablet PO BID 10/19/16 10/19/16 History [Phospho-Joie 250 Neutral Tab] Sodium Bicarb Tab 2 tablet PO BID 10/19/16 10/19/16 History Zinc Sulfate 220 mg PO DAILY 10/19/16 10/19/16 History predniSONE TAB [PredniSONE] 5 mg PO DAILY 10/19/16 10/19/16 History Allergies Allergy/AdvReac Type Severity Reaction Status Date / Time No Known Allergies Allergy Verified 07/28/15 13:55 Exam (Pulmonay) H&P - Constitutional Vitals: Period Temp Pulse Resp BP Sys/Mckinney Pulse Ox Last 24 Hr 96.6 F-97.2 F 43-54 10-19 77-162/49-87 99-100 Medical,Surgical,& Family Hx - Medical History Cardio: History of: Hypertension, [place], Cardiovascular Problems (STENTS) Neurology: History of: Seizures HEENT: History of: Eye Problem (GLASSES) Endocrine: No history of: Diabetes Mellitus (IDDM), Diabetes Mellitus (NIDDM) Renal: History of: Renal Failure Musculoskeletal: History of: Amputation, Back/Neck Problems Other: History of: Cancer, Skin Problems (skin cancer treated with radiation therapy) - Surgical History Cardiac Surgeries: Sugical HX of: Cardiac Catheterization Thoracic Surgeries: Surgical HX of;: Kidney (Renal Surgery) (TRANSPLANT 2004), Organ Transplant (renal transplant in 2004 at [facility]) Neurologic Surgeries: Patient denies: Neurologic Surgery HEENT Surgeries: Patient denies: Tonsilectomy & Adenoidectomy Abdominal Surgeries: Surgical HX of: Abdominal Surgery, Cholecystectomy, Colonoscopy, EGD Patient denies: Appendectomy Reproductive Surgeries: Surgical HX of;: Genitourinary Surgery Orthopedic Surgeries: Surgical HX of;: Total Hip Replacement Patient denies;: Total Knee Replacement - Family History Family History: Reports;: Family Hypertension - Social History Smoking Status: Former smoker Frequency of Alcohol Use: None Type of Drug Use: None Results - Labs CBC & BMP: 10/19/16 05:13 10/19/16 05:13
[2016-10-19 13:57] LABS: INR 1.1; PT Patient Result 11.5 SECS; Partial Thromboplastin Time 33.3 SECS (0-40)
[2016-10-19 15:28] LABS: Band Neutrophils 2 % (0-10); Lymphocytes 3 % (20-55); Platelet Estimate Normal; Segmented Neutrophils 90 % (50-85); Total Cells Counted 100
--- NOTE | 2016-10-19 15:54 | Neurology Consult Note ---
History of Present Illness History of present illness: 52 years old gentleman with past medical history significant for multiple medical problems including renal failure, IgA nephropathy, hypertension, myocardial infarction, skin cancer, chronic neck and back pain, and current nicotine use and to the hospital with back to back 3 seizures. He is intubated now. He never had seizures before in his entire life. I do not have firsthand description of the seizures however it was reported that he was shaking all over. He was intubated for airway protection and also started on Keppra. He was given Ativan to control seizures. His GCS score was 3. EEG reviewed revealed mild generalized slowing. No seizure activity. Home Medications Medication Instructions Recorded Confirmed Type Tacrolimus [Prograf] 1 mg PO BID 07/28/15 10/19/16 History Aspirin [Ecotrin] 81 mg PO DAILY #100 tablet. 10/24/15 10/19/16 Rx Furosemide Tab [Lasix Tab] 40 mg PO BID #100 tablet 10/24/15 10/19/16 Rx Mycophenolate Mofetil Cap 750 mg PO BID #90 capsule 10/24/15 10/19/16 Rx [Cellcept] Carvedilol [Carvedilol] 25 mg PO BID 11/05/15 10/19/16 History Bisacodyl Tab [Dulcolax Tab] 2 tablet PO TID PRN 10/19/16 10/19/16 History Cholecalciferol [Vitamin D3] 1,000 unit PO DAILY 10/19/16 10/19/16 History Cyclobenzaprine [Flexeril] 5 mg PO BID PRN 10/19/16 10/19/16 History Lubiprostone [Amitiza] 1 capsule PO DAILY 10/19/16 10/19/16 History Pantoprazole Tab [Protonix Tab] 40 mg PO DAILY 10/19/16 10/19/16 History Sod Phos Di, Davis/K Phos Davis 2 tablet PO BID 10/19/16 10/19/16 History [Phospho-Joie 250 Neutral Tab] Sodium Bicarb Tab 2 tablet PO BID 10/19/16 10/19/16 History Zinc Sulfate 220 mg PO DAILY 10/19/16 10/19/16 History predniSONE TAB [PredniSONE] 5 mg PO DAILY 10/19/16 10/19/16 History Allergies Allergy/AdvReac Type Severity Reaction Status Date / Time No Known Allergies Allergy Verified 07/28/15 13:55 12 point system: reviewed and no additional remarkable complaints except as stated Medical,Surgical,& Family Hx - Medical History Cardio: History of: Hypertension, [place], Cardiovascular Problems (STENTS) Neurology: History of: Seizures HEENT: History of: Eye Problem (GLASSES) Endocrine: No history of: Diabetes Mellitus (IDDM), Diabetes Mellitus (NIDDM) Renal: History of: Renal Failure Musculoskeletal: History of: Amputation, Back/Neck Problems Other: History of: Cancer, Skin Problems (skin cancer treated with radiation therapy) - Surgical History Cardiac Surgeries: Sugical HX of: Cardiac Catheterization Thoracic Surgeries: Surgical HX of;: Kidney (Renal Surgery) (TRANSPLANT 2004), Organ Transplant (renal transplant in 2004 at [facility]) Neurologic Surgeries: Patient denies: Neurologic Surgery HEENT Surgeries: Patient denies: Tonsilectomy & Adenoidectomy Abdominal Surgeries: Surgical HX of: Abdominal Surgery, Cholecystectomy, Colonoscopy, EGD Patient denies: Appendectomy Reproductive Surgeries: Surgical HX of;: Genitourinary Surgery Orthopedic Surgeries: Surgical HX of;: Total Hip Replacement Patient denies;: Total Knee Replacement - Family History Family History: Reports;: Family Hypertension - Social History Smoking Status: Current every day smoker Frequency of Alcohol Use: None Type of Drug Use: None Exam - Constitutional Vitals: Period Temp Pulse Resp BP Sys/Mckinney Pulse Ox Last 24 Hr 96.6 F-97.4 F 43-55 10-19 77-162/49-87 99-100 Exam: GENERAL: Patient is in no acute distress. NECK: Neck is supple. There is no JVD. No carotid bruits present. No thyroid masses. CVS: First and second heart sounds are normal. There is no S3 present. Regular rate and rhythm. RESPIRATORY: Lungs are clear to auscultation without any rales or rhonchi. ABDOMEN: Soft and non-tender. Bowel sounds are present. There is no hepatosplenomegaly. EXT: There is no palpable edema. Peripheral pulses are present. Skin: No rashes Central Nervous system: General: Alert, awake and Oriented x 3 Speech: Fluent Comprehension: Intact and normal Facial expressions: Normal Cranial Nerves: Pupils are equally reactive to light. Doll's head I movements are positive. No facial asymmetry is seen. Motor: Bulk and Tone is normal. Strength: Minimally moving all 4 extremities and following commands Reflexes: 1+ and symmetrical Cerebellar function: Not tested Toes: Equivocal Gait: Not tested Results - Labs CBC & BMP: 10/19/16 13:27 10/19/16 13:09 Assessment and Plan (1) Seizures Status: Acute Assessment and plan: Even though a clear etiology of the seizures are not known however given his multiple comorbidities AED is indicated Continue Keppra and changed to 500 mg IV q.8 We will watch him closely Thank you for the consult Current Visit: Yes
--- NOTE | 2016-10-19 15:59 | Ultrasound Report ---
History: Respiratory failure Date: 10/19/2016 Study: Bilateral lower extremity color-flow venous Doppler study Comparison exam: No previous Color Doppler, wave form analysis, and compression analysis of the deep veins of both lower extremities from the common femoral vein level through the popliteal vein level shows that the veins are readily compressible. There is no abnormal intraluminal material to suggest thrombus. Waveform analysis is unremarkable. Ultrasound images were captured and archived Impression: No evidence of acute DVT PROCEDURE INTERPRETED AT [facility] DEPARTMENT OF RADIOLOGY Final Report Signed by: Dr. Alva Desai
--- NOTE | 2016-10-19 18:05 | Cardiology Consult Note ---
Jewel Amaro Vanessa, RN, am scribing for, and in the presence of, Ania Lee MD 18:05. Assessment and Plan - Time spent with patient Time spent with patient: Greater than 30 minutes (Due to assessment, planning, documentation, and medication review) (1) Syncope and collapse Status: Acute Assessment and plan: SEE PLAN OF CARE LISTED BELOW. Current Visit: No (2) Bradycardia Status: Chronic Assessment and plan: SEE PLAN OF CARE LISTED BELOW. Current Visit: Yes (3) History of coronary artery disease Status: Chronic Assessment and plan: SEE PLAN OF CARE LISTED BELOW. Current Visit: Yes (4) History of renal transplant Status: Chronic Assessment and plan: SEE PLAN OF CARE LISTED BELOW. Current Visit: No (5) Hypertension Status: Chronic Assessment and plan: SEE PLAN OF CARE LISTED BELOW. Current Visit: Yes (6) Hyperlipidemia Status: Chronic Assessment and plan: SEE PLAN OF CARE LISTED BELOW. Current Visit: Yes (7) History of hyperglycemia Status: Chronic Assessment and plan: SEE PLAN OF CARE LISTED BELOW. Current Visit: Yes (8) Tobacco use Status: Chronic Assessment and plan: SEE PLAN OF CARE LISTED BELOW. 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 RIBEIRO Patient seen and examined in ICU. He is intubated, and HPI is gathered from previous records and current chart. 60 year old, NAM, with PMHx of hypertension, hyperlipidemia, hyperglycemia, chronic kidney disease, and tobacco use. End stage renal disease related to IgA nephropathy status post renal transplant in 2004, is on immunosuppressive therapy, and is followed by Dr. Barrera. He is status post non-Q [place] with stent to mid circumflex in 2012. Other history includes chronic back pain with previous lumbar nerve stimulator and surgery and squamous cell carcinoma now s/p surgical removal and radiation. Last echocardiogram December 2015 with preserved LV systolic function, EF 50-55%, mild diastolic dysfunction, mild aortic insufficiency. Stress myocardial perfusion study with no evidence for ischemia. Patient is now admitted to [facility]'s ICU in transfer from [facility] after witnessed syncopal episode, and he apparently had an episode of seizure activity afterward. Due to altered level of consciousness, patient was intubated after arrival to [facility]'s ER for protection of airway. It was reported by patient's that patient had similar episode last week but experienced bowel incontinence as well. Head CT with mild, small vessel ischemic changes but no acute process. Carotid doppler US negative for obstructive stenosis. Chest x-ray normal. Cardiology asked to see for bradycardia 40s-50s. Review of current EKG and cardiac monitoring shows no significant change from EKG in clinic June 2016 which shows sinus bradycardia, HR 50s, old anterolateral changes. Patient appears comfortable on ventilator, completing T-tube trial this afternoon. Low dose IV Versed infusion in place but patient will wake up, respond, follow commands appropriately. BP 120/70. Sinus bradycardia with HR upper 40s, mid 50s. ASSESSMENT/PLAN: 1. BRADYCARDIA - Review of clinic records and old chart shows this is most likely a chronic finding and is not significantly worsened this admission. Patient routinely takes carvedilol 25 mg PO BID, but this is currently being held. Will review TSH, free T4. 2. HYPERTENSION - He has had some transient hypotension this admission with SBP no lower than 75 but has not required vasopressor support. No antihypertensives are being given at this time. 3. CAD - History of PCI greater than 4 years ago. At last clinic visit with Dr. Ribeiro in June, patient had no anginal complaint. No clinical findings at this time for ACS. Continue low dose ASA. 4. TOBACCO USE - Will need tobacco cessation counseling once extubated, alert. 5. CHRONIC KIDNEY DISEASE - Avoid nephrotoxic agents as able. Nephrology is also following patient this admission. 6 SYNCOPE AND COLLAPSE - Diagnostic workup for etiology thus far has been benign. Neurology consult is pending. CC: iNco Zimmerman MD - Home Medications and Allergies Home Medications: Home Medications Medication Instructions Recorded Confirmed Type Tacrolimus [Prograf] 1 mg PO BID 07/28/15 10/19/16 History Aspirin [Ecotrin] 81 mg PO DAILY #100 tablet. 10/24/15 10/19/16 Rx Furosemide Tab [Lasix Tab] 40 mg PO BID #100 tablet 10/24/15 10/19/16 Rx Mycophenolate Mofetil Cap 750 mg PO BID #90 capsule 10/24/15 10/19/16 Rx [Cellcept] Carvedilol [Carvedilol] 25 mg PO BID 11/05/15 10/19/16 History Bisacodyl Tab [Dulcolax Tab] 2 tablet PO TID PRN 10/19/16 10/19/16 History Cholecalciferol [Vitamin D3] 1,000 unit PO DAILY 10/19/16 10/19/16 History Cyclobenzaprine [Flexeril] 5 mg PO BID PRN 10/19/16 10/19/16 History Lubiprostone [Amitiza] 1 capsule PO DAILY 10/19/16 10/19/16 History Pantoprazole Tab [Protonix Tab] 40 mg PO DAILY 10/19/16 10/19/16 History Sod Phos Di, [place]/K Phos [place] 2 tablet PO BID 10/19/16 10/19/16 History [Phospho-Joie 250 Neutral Tab] Sodium Bicarb Tab 2 tablet PO BID 10/19/16 10/19/16 History Zinc Sulfate 220 mg PO DAILY 10/19/16 10/19/16 History predniSONE TAB [PredniSONE] 5 mg PO DAILY 10/19/16 10/19/16 History Allergies/Adverse Reactions: Allergies Allergy/AdvReac Type Severity Reaction Status Date / Time No Known Allergies Allergy Verified 07/28/15 13:55 ROS unobtainable: due to endotracheal tube Medical,Surgical,& Family Hx - Medical History Cardio: History of: CAD, Hypertension, [place] Neurology: History of: Seizures HEENT: History of: Eye Problem (GLASSES) Endocrine: History of: Dyslipidemia No history of: Diabetes Mellitus (IDDM), Diabetes Mellitus (NIDDM), Thyroid Disorder Respiratory: History of: Intubation No history of: Obstructive Sleep Apnea, Pulmonary Hypertension Renal: History of: Renal Failure Gastrointestinal: History of: GERD No history of: Gastrointestinal Bleed Musculoskeletal: History of: Amputation, Back/Neck Problems Reproductive: 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 Other: History of: Cancer, Skin Problems (skin cancer treated with radiation therapy) - Surgical History Cardiac Surgeries: Sugical HX of: Cardiac Catheterization Thoracic Surgeries: Surgical HX of;: Kidney (Renal Surgery) (TRANSPLANT 2004), Organ Transplant (renal transplant in 2004 at [facility]) Neurologic Surgeries: Patient denies: Neurologic Surgery HEENT Surgeries: Patient denies: Tonsilectomy & Adenoidectomy Abdominal Surgeries: Surgical HX of: Abdominal Surgery, Cholecystectomy, Colonoscopy, EGD Patient denies: Appendectomy Reproductive Surgeries: Surgical HX of;: Genitourinary Surgery Orthopedic Surgeries: Surgical HX of;: Total Hip Replacement Patient denies;: Total Knee Replacement - Family History Family History: Reports;: Family Hypertension - Social History Smoking Status: Current every day smoker Frequency of Alcohol Use: None Type of Drug Use: None Marital Status: Physical Examination Vital Signs Temp Pulse Resp BP Pulse Ox 97.2 F L 54 L 16 90/58 100 10/18/16 14:35 10/18/16 14:35 10/18/16 14:35 10/18/16 14:35 10/18/16 14:35 Exam: General appearance: normal weight, no acute distress, intubated, not spontaneously arousable during the exam. - Head Head exam: Present: normocephalic, atraumatic,. Absent: hematoma, laceration - Eye Eye exam: Absent: conjunctival injection, nystagmus, periorbital swelling, scleral icterus, laceration to eyelids Pupils: Present: [place]. Absent: constricted, dilated, fixed, irregular, unequal - ENT ENT exam: Present: normal exam, normal external ear exam - Neck Neck exam: Present: normal inspection. Absent: lymphadenopathy, meningismus, tenderness, thyromegaly - Respiratory Respiratory exam: Present: clear to auscultation bilaterally anteriorly, there is normal rise with ventilated breaths. Absent: accessory muscle use, chest wall tenderness - Cardiovascular Cardiovascular exam: Present: Bradycardic rate and regular rhythm. Absent: carotid bruit, gallop, JVD, rubs - GI/Abdominal GI/Abdominal exam: Present: normal bowel sounds. Absent: distended, firm, guarding, hernia, mass, tenderness, rebound, soft - Extremities Exam Extremities exam: Present: normal inspection, normal capillary refill. Absent: calf tenderness, edema - Back Exam Back exam: Unable to assess due to patient being on the ventilator - Neurological Exam Neurological exam: Unable to fully assess due to patient being on the ventilator. She does appear to move all 4 extremities. - Psychiatric Psychiatric exam: Unable to assess due to patient being on the ventilator. - Skin Skin exam: Present: normal color, warm, dry, intact. Absent: cyanosis, diaphoretic, rash, urticaria Result/EKG - Labs CBC & BMP: 10/19/16 13:27 10/19/16 13:09 Lab Results: I have reviewed the past 24 hour labs Labs: Laboratory Results - last 24 hr 10/18/16 10/18/16 10/18/16 16:27 16:27 16:27 WBC 16.7 H RBC 3.53 L Hgb 10.9 L Hct 32.0 L MCV 90.7 MCH 31 MCHC 34.1 RDW 13.4 Plt Count 208 MPV 9.3 L Neut % (Auto) 89.6 H Lymph % (Auto) 2.8 L [place] % (Auto) 6.5 Eos % (Auto) 0.1 Baso % (Auto) 0.1 Neut # (Auto) 15.0 H Lymph # (Auto) 0.5 L [place] # (Auto) 1.1 H Eos # (Auto) 0.0 Baso # (Auto) 0.0 Total Counted Immature Gran % 0.9 Nucleated RBC % 0.0 Immature Gran # 0.15 Segmented Neutrophils Lymphocytes Monocytes Nucleated RBCs # 0.00 Platelet Estimate Normal Immature Plt Fraction 0.0 Hypochromasia Poikilocytosis Slight Microcytosis Ovalocytes Judie Cells Few Acanthocytes (Spur) Circ Anticoag PTT ABG pH ABG pCO2 ABG pO2 ABG HCO3 ABG Total CO2 ABG O2 Saturation ABG Base Excess FiO2 Sodium 140 Potassium 3.1 L Chloride 106 Carbon Dioxide 22 Anion Gap 15.1 H BUN 67 H Creatinine 2.40 H GFR Calculation 29 BUN/Creatinine Ratio 27.00 H Glucose 179 H Hemoglobin A1c Calculated Osmolality 301.4 Lactic Acid Calcium 8.8 Phosphorus 3.6 Magnesium 1.9 Total Bilirubin 0.80 AST 20 ALT 26 Alkaline Phosphatase 80 Ammonia Troponin I 0.050 H Total Protein 6.5 Albumin 3.3 L Globulin 3.2 Albumin/Globulin Ratio 1.0 L Triglycerides Cholesterol LDL Cholesterol VLDL Cholesterol HDL Cholesterol Heart Disease Risk Ratio Cortisol 8am Sample Urine Color Urine Appearance Urine pH Ur Specific [place] Urine Protein Urine Glucose (UA) Urine Ketones Urine Blood Urine Nitrate Urine Bilirubin Urine Urobilinogen Urine Leukocytes Urine WBC Ur Squamous Epith Cells Urine Bacteria Hyaline Casts Urine Mucus Ur Culture Indicated? Urine Opiates Screen Ur Barbiturates Screen Ur Phencyclidine Scrn U Amphetamine/Methamph U Benzodiazepines Scrn U Cocaine Metab Screen U Cannabinoids Screen Serum Alcohol 10/18/16 10/18/16 10/18/16 16:27 16:27 16:27 WBC RBC Hgb Hct MCV MCH MCHC RDW Plt Count MPV Neut % (Auto) Lymph % (Auto) [place] % (Auto) Eos % (Auto) Baso % (Auto) Neut # (Auto) Lymph # (Auto) [place] # (Auto) Eos # (Auto) Baso # (Auto) Total Counted Immature Gran % Nucleated RBC % Immature Gran # Segmented Neutrophils Lymphocytes Monocytes Nucleated RBCs # Platelet Estimate Immature Plt Fraction Hypochromasia Poikilocytosis Microcytosis Ovalocytes Judie Cells Acanthocytes (Spur) Circ Anticoag PTT ABG pH ABG pCO2 ABG pO2 ABG HCO3 ABG Total CO2 ABG O2 Saturation ABG Base Excess FiO2 Sodium Potassium Chloride Carbon Dioxide Anion Gap BUN Creatinine GFR Calculation BUN/Creatinine Ratio Glucose Hemoglobin A1c Calculated Osmolality Lactic Acid 1.8 Calcium Phosphorus Magnesium Total Bilirubin AST ALT Alkaline Phosphatase Ammonia Troponin I Total Protein Albumin Globulin Albumin/Globulin Ratio Triglycerides 84 Cholesterol 116 LDL Cholesterol 63.0 VLDL Cholesterol 16.8 HDL Cholesterol 48 Heart Disease Risk Ratio 2.42 Cortisol 8am Sample Urine Color Urine Appearance Urine pH Ur Specific [place] Urine Protein Urine Glucose (UA) Urine Ketones Urine Blood Urine Nitrate Urine Bilirubin Urine Urobilinogen Urine Leukocytes Urine WBC Ur Squamous Epith Cells Urine Bacteria Hyaline Casts Urine Mucus Ur Culture Indicated? Urine Opiates Screen Ur Barbiturates Screen Ur Phencyclidine Scrn U Amphetamine/Methamph U Benzodiazepines Scrn U Cocaine Metab Screen U Cannabinoids Screen Serum Alcohol < 15 L 10/18/16 10/18/16 10/18/16 16:27 16:27 16:37 WBC RBC Hgb Hct MCV MCH MCHC RDW Plt Count MPV Neut % (Auto) Lymph % (Auto) [place] % (Auto) Eos % (Auto) Baso % (Auto) Neut # (Auto) Lymph # (Auto) [place] # (Auto) Eos # (Auto) Baso # (Auto) Total Counted Immature Gran % Nucleated RBC % Immature Gran # Segmented Neutrophils Lymphocytes Monocytes Nucleated RBCs # Platelet Estimate Immature Plt Fraction Hypochromasia Poikilocytosis Microcytosis Ovalocytes Judie Cells Acanthocytes (Spur) Circ Anticoag PTT 29.5 ABG pH 7.382 ABG pCO2 35.0 ABG pO2 223.0 H ABG HCO3 21.4 ABG Total CO2 18.7 L ABG O2 Saturation 99.5 ABG Base Excess -3.6 L FiO2 50.00 Sodium Potassium Chloride Carbon Dioxide Anion Gap BUN Creatinine GFR Calculation BUN/Creatinine Ratio Glucose Hemoglobin A1c Calculated Osmolality Lactic Acid Calcium Phosphorus Magnesium Total Bilirubin AST ALT Alkaline Phosphatase Ammonia 23 Troponin I Total Protein Albumin Globulin Albumin/Globulin Ratio Triglycerides Cholesterol LDL Cholesterol VLDL Cholesterol HDL Cholesterol Heart Disease Risk Ratio Cortisol 8am Sample Urine Color Urine Appearance Urine pH Ur Specific [place] Urine Protein Urine Glucose (UA) Urine Ketones Urine Blood Urine Nitrate Urine Bilirubin Urine Urobilinogen Urine Leukocytes Urine WBC Ur Squamous Epith Cells Urine Bacteria Hyaline Casts Urine Mucus Ur Culture Indicated? Urine Opiates Screen Ur Barbiturates Screen Ur Phencyclidine Scrn U Amphetamine/Methamph U Benzodiazepines Scrn U Cocaine Metab Screen U Cannabinoids Screen Serum Alcohol 10/18/16 10/18/16 10/18/16 16:37 17:30 17:30 WBC RBC Hgb Hct MCV MCH MCHC RDW Plt Count MPV Neut % (Auto) Lymph % (Auto) [place] % (Auto) Eos % (Auto) Baso % (Auto) Neut # (Auto) Lymph # (Auto) [place] # (Auto) Eos # (Auto) Baso # (Auto) Total Counted Immature Gran % Nucleated RBC % Immature Gran # Segmented Neutrophils Lymphocytes Monocytes Nucleated RBCs # Platelet Estimate Immature Plt Fraction Hypochromasia Poikilocytosis Microcytosis Ovalocytes Judie Cells Acanthocytes (Spur) Circ Anticoag PTT ABG pH ABG pCO2 ABG pO2 ABG HCO3 ABG Total CO2 ABG O2 Saturation ABG Base Excess FiO2 Sodium Potassium Chloride Carbon Dioxide Anion Gap BUN Creatinine GFR Calculation BUN/Creatinine Ratio Glucose Hemoglobin A1c 6.4 H Calculated Osmolality Lactic Acid Calcium Phosphorus Magnesium Total Bilirubin AST ALT Alkaline Phosphatase Ammonia Troponin I Total Protein Albumin Globulin Albumin/Globulin Ratio Triglycerides Cholesterol LDL Cholesterol VLDL Cholesterol HDL Cholesterol Heart Disease Risk Ratio Cortisol 8am Sample Urine Color Yellow Urine Appearance Clear Urine pH 5.0 Ur Specific [place] 1.010 Urine Protein Negative Urine Glucose (UA) Negative Urine Ketones Negative Urine Blood Negative Urine Nitrate Negative Urine Bilirubin Negative Urine Urobilinogen < 2.0 H Urine Leukocytes Negative Urine WBC 1 Ur Squamous Epith Cells Occasional Urine Bacteria Occasional Hyaline Casts 19 Urine Mucus Occasional Ur Culture Indicated? Not indicated Urine Opiates Screen Negative Ur Barbiturates Screen Negative Ur Phencyclidine Scrn Negative U Amphetamine/Methamph Negative U Benzodiazepines Scrn Negative U Cocaine Metab Screen Negative U Cannabinoids Screen Negative Serum Alcohol 10/18/16 10/19/16 10/19/16 19:25 03:25 05:13 WBC RBC Hgb Hct MCV MCH MCHC RDW Plt Count MPV Neut % (Auto) Lymph % (Auto) [place] % (Auto) Eos % (Auto) Baso % (Auto) Neut # (Auto) Lymph # (Auto) [place] # (Auto) Eos # (Auto) Baso # (Auto) Total Counted Immature Gran % Nucleated RBC % Immature Gran # Segmented Neutrophils Lymphocytes Monocytes Nucleated RBCs # Platelet Estimate Immature Plt Fraction Hypochromasia Poikilocytosis Microcytosis Ovalocytes Judie Cells Acanthocytes (Spur) Circ Anticoag PTT ABG pH 7.351 ABG pCO2 34.7 L ABG pO2 246.0 H ABG HCO3 19.8 L ABG Total CO2 17.3 L ABG O2 Saturation 99.4 ABG Base Excess -5.7 L FiO2 50.00 Sodium Potassium Chloride Carbon Dioxide Anion Gap BUN Creatinine GFR Calculation BUN/Creatinine Ratio Glucose Hemoglobin A1c Calculated Osmolality Lactic Acid Calcium Phosphorus Magnesium Total Bilirubin AST ALT Alkaline Phosphatase Ammonia Troponin I 0.053 H Total Protein Albumin Globulin Albumin/Globulin Ratio Triglycerides 68 Cholesterol 109 LDL Cholesterol 61.0 VLDL Cholesterol 13.6 HDL Cholesterol 44 Heart Disease Risk Ratio 2.48 Cortisol 8am Sample Urine Color Urine Appearance Urine pH Ur Specific [place] Urine Protein Urine Glucose (UA) Urine Ketones Urine Blood Urine Nitrate Urine Bilirubin Urine Urobilinogen Urine Leukocytes Urine WBC Ur Squamous Epith Cells Urine Bacteria Hyaline Casts Urine Mucus Ur Culture Indicated? Urine Opiates Screen Ur Barbiturates Screen Ur Phencyclidine Scrn U Amphetamine/Methamph U Benzodiazepines Scrn U Cocaine Metab Screen U Cannabinoids Screen Serum Alcohol 10/19/16 10/19/16 10/19/16 05:13 05:13 07:59 WBC 11.9 RBC 3.39 L Hgb 10.5 L Hct 31.1 L MCV 91.7 MCH 31 MCHC 33.8 RDW 13.6 Plt Count 197 MPV 9.6 Neut % (Auto) 93.2 H Lymph % (Auto) 3.4 L [place] % (Auto) 2.6 Eos % (Auto) 0.0 Baso % (Auto) 0.1 Neut # (Auto) 11.1 H Lymph # (Auto) 0.4 L [place] # (Auto) 0.3 Eos # (Auto) 0.0 Baso # (Auto) 0.0 Total Counted 100 Immature Gran % 0.7 Nucleated RBC % 0.0 Immature Gran # 0.08 Segmented Neutrophils 95 H Lymphocytes 3 L Monocytes 2 Nucleated RBCs # 0.00 Platelet Estimate Adequate Immature Plt Fraction 0.0 Hypochromasia 1+ Poikilocytosis Microcytosis 1+ Ovalocytes Slight Judie Cells Acanthocytes (Spur) Few Circ Anticoag PTT ABG pH ABG pCO2 ABG pO2 ABG HCO3 ABG Total CO2 ABG O2 Saturation ABG Base Excess FiO2 Sodium 142 Potassium 3.4 L Chloride 110 H Carbon Dioxide 20 L Anion Gap 15.4 H BUN 66 H Creatinine 2.10 H GFR Calculation 37 BUN/Creatinine Ratio 31.00 H Glucose 151 H Hemoglobin A1c Calculated Osmolality 304.1 H Lactic Acid Calcium 8.7 Phosphorus Magnesium Total Bilirubin 1.20 H AST 23 ALT 27 Alkaline Phosphatase 77 Ammonia Troponin I Total Protein 5.9 L Albumin 2.9 L Globulin 3.0 Albumin/Globulin Ratio 0.9 L Triglycerides Cholesterol LDL Cholesterol VLDL Cholesterol HDL Cholesterol Heart Disease Risk Ratio Cortisol 8am Sample 153.9 H Urine Color Urine Appearance Urine pH Ur Specific [place] Urine Protein Urine Glucose (UA) Urine Ketones Urine Blood Urine Nitrate Urine Bilirubin Urine Urobilinogen Urine Leukocytes Urine WBC Ur Squamous Epith Cells Urine Bacteria Hyaline Casts Urine Mucus Ur Culture Indicated? Urine Opiates Screen Ur Barbiturates Screen Ur Phencyclidine Scrn U Amphetamine/Methamph U Benzodiazepines Scrn U Cocaine Metab Screen U Cannabinoids Screen Serum Alcohol - Diagnostic Findings Procedure: Chest x-ray: image reviewed by me, report reviewed by me, Ultrasound : image reviewed by me, report reviewed by me - EKG EKG results: interpreted by me, no acute changes EKG shows: bradycardia (Sinus bradycardia) Jesus Amaro Jennifer, MD, personally performed the services described in this documentation, ascribed by Jennifer Holloway RN in my presence, and it is both accurate and complete [id number] .
--- NOTE | 2016-10-19 19:08 | Nephrology Progress Note ---
Nephrology - PN: Subj Interval history: Patient is resting on the ventilator but is awake. Serum creatinine is noted to be 2.2. At this time Keppra has been adjusted. Exam (PN)-Nephrology - Vital Signs Vital signs: Period Temp Pulse Resp BP Sys/Mckinney Pulse Ox Last 24 Hr 96.6 F-97.4 F 43-55 10-19 77-132/49-75 99-100 - General Appearance General appearance: well-developed, intubated EENT: ATNC Neck: supple Respiratory: clear Cardiology: regular rate, regular rhythm Gastrointestinal: normoactive bowel sounds, no tenderness Integumentary: no rash - Lab 10/19/16 13:27 10/19/16 13:09 Most recent lab results ABG pH 7.381 (7.35-7.45) 10/19/16 12:05 ABG pCO2 31.3 MM HG (35-48) L 10/19/16 12:05 ABG pO2 212.0 MM HG (80-95) H 10/19/16 12:05 ABG HCO3 19.8 MMOL/L (20-26) L 10/19/16 12:05 ABG O2 Saturation 99.6 % (95-100) 10/19/16 12:05 Calcium 8.8 MG/DL (8.5-10.1) 10/19/16 13:09 Phosphorus 3.6 MG/DL (2.5-4.9) 10/18/16 16:27 Magnesium 1.9 MG/DL (1.8-2.4) 10/18/16 16:27 Assessment and Plan (1) History of renal transplant Status: Chronic Assessment and plan: Renal function is stable. Current Visit: No (2) Syncope and collapse Status: Resolved Current Visit: No (3) Seizures Status: Acute Assessment and plan: Now on Keppra 3 times a day. Current Visit: Yes (4) Altered mental status Status: Acute Current Visit: Yes (5) Bradycardia Status: Chronic Current Visit: Yes
--- NOTE | 2016-10-19 19:43 | ECHO Report ---
Tate Claudio Exam Date: 10/19/2016 08:19 Referring Physician: Technologist: Lubna Bynum RDCS Age: 60 Ht (in): 66 Wt (lb): 142 Gender: M Exam Location: [facility] Echo Indications: Syncope and collapse, Essential (primary) hypertension, Acute on chronic renal failure, hx renal transplant, CAD with previous stents, Unresponsive- on vent, Seizures, Nicotine dependence, cigarettes, uncomplicated BP: 120 / 81 HR: 50 Rhythm: Sinus Technical Quality: Fair IMPRESSIONS Normal LV systolic function, ejection fraction 55%. Grade 1/4 diastolic dysfunction consistent with impaired relaxation. Mild concentric left ventricular hypertrophy. Mild biatrial enlargement. Mild right ventricular dilation. Trace tricuspid regurgitation. Trivial pericardial effusion. Mildly dilated aortic root. MEASUREMENTS (Male / Female) Normal Values 2D ECHO LV Diastolic Diameter PLAX 4.6 cm 4.2 - 5.9 / 3.9 - 5.3 cm LV Systolic Diameter PLAX 2.6 cm LV Fractional Shortening PLAX 43.3 % IVS Diastolic Thickness 1.4 cm 0.6 - 1.0 / 0.6 - 0.9 cm LVPW Diastolic Thickness 1.4 cm 0.6 - 1.0 / 0.6 - 0.9 cm RV Internal Dim ED PLAX 3.7 cm Aortic Root Diameter 4.3 cm LA Systolic Diameter LX 4.6 cm 3.0 - 4.0 / 2.7 - 3.8 cm FINDINGS Left Ventricle Normal left ventricular cavity size. Mild left ventricular hypertrophy. Left ventricular ejection fraction is estimated at 55 %. Right Ventricle Mildly increased right ventricular size. Right Atrium The right atrium is mildly enlarged. Left Atrium The left atrium is mildly enlarged. Mitral Valve Morphologically normal mitral valve without significant stenosis or prolapse. There is no mitral regurgitation. Aortic Valve Morphologically normal aortic valve without significant sclerosis or stenosis. There is no aortic regurgitation. Tricuspid Valve Morphologically normal tricuspid valve. Trace tricuspid valve regurgitation. Pulmonic Valve Morphologically normal pulmonic valve without significant stenosis. There is no pulmonic regurgitation. Pericardium Trivial pericardial effusion. Aorta Mildly dilated aortic root. Ania Lee MD (Electronically Signed) Final Date: 19 October 2016 19:42
--- NOTE | 2016-10-19 19:54 | Electroencephalogram ---
HISTORY: A 60 years old gentleman with history of seizures. INTRODUCTION: A digital EEG was performed using the standard 10/20 system of electrode placement wit h one channel of EKG monitoring. Photic stimulation was performed. DESCRIPTION OF RECORD: The background is somewhat disorganized, consists of 7 to 8 hertz moderate a mplitude bilateral symmetrical rhythm. Photic stimulation elicits a driving response at intermediate flash frequencies. Hyperventilation was not performed. There are no focal, sharp-wave, spike or wa ve activity seen. Heart rate is 42 beats per minute. IMPRESSION: ABNORMAL EEG DUE TO GENERALIZED SLOWING. CLINICAL CORRELATION: This record is supportive of mild encephalopathy, which could be secondary to postictal state, posthypoxic state, metabolic disorder, diffuse DIVISION DIRECTOR insult, or increased intracranial pressure. No epileptiform/seizure activity seen. Clinical correlation is suggested.
[2016-10-19] MEDS: ENOXAPARIN 40 MG/0.4 ML SYRINGE SUBCUT SCH (21:02)
[2016-10-19] MEDS ORDERED: HYDROmorphone 2 MG/1 ML VIAL IV ONE (22:28)
[2016-10-20] MEDS: HYDROCORTISONE 100 MG VIAL IV SCH ×4 (00:11→17:14)
[2016-10-20] MEDS: PIPERACILLIN/TAZOBACTAM 3,375 MG in SODIUM CHLORIDE 0.9% 100 ML IV SCH ×3 (02:17→17:15)
[2016-10-20 04:01] LABS: ABG Base Excess -5.8 MMOL/L (-2.5-2.5); ABG HCO3 19.7 MMOL/L (20-26); ABG Oxygen Saturation 99.7 % (95-100); ABG PCO2 33.9 MM HG (35-48); ABG PH 7.356 (7.35-7.45); ABG TCO2 17.2 MMOL/L (23-27); Allen Test Positive; Pt O2 Delivery Device Ventilator
[2016-10-20 05:22] LABS: Basophils % 0.1 % (0.0-0.8); Hematocrit 30.9 VOL% (42.0-52.0); Hemoglobin 10.5 GM/DL (14.0-18.0); Immature Granulocytes % 0.7 %; Immature Granulocytes Absolute 0.08 #; Lymphocytes # 0.4 10*3/uL (1.4-4.0); Lymphocytes % 3.7 % (21.2-54.2); Mean Corpuscular Hemoglobin 31 PG (27-34); Mean Corpuscular Volume 92.5 FL (87-102); Mean Platelet Volume 9.5 FL (9.6-12.0); Monocytes # 0.4 10*3/uL (0.11-0.8); Monocytes % 3.6 % (1.7-12.7); Neutrophils # 10.4 10*3/uL (1.4-7.4); Neutrophils % 91.9 % (38.7-73.9); Platelet Count 202 T/CUMM (130-400); Red Blood Count 3.34 MC/CUMM (3.8-5.5); Red Cell Distribution Width 13.8 % (9.3-17.3); White Blood Count 11.4 T/CUMM (4-12)
[2016-10-20 05:43] LABS: Burr Cells Slight; Giant Platelets Few; Hypochromasia 1+; Lymphocytes 6 % (20-55); Microcytosis Slight; Ovalocytes Slight; Platelet Estimate Adequate; Segmented Neutrophils 90 % (50-85); Total Cells Counted 100
[2016-10-20 06:08] LABS: Magnesium 2.2 MG/DL (1.8-2.4); Osmolality,Calculated 308.8 MOS/KG (273-304); Potassium 3.4 MMOL/L (3.5-5.1)
--- NOTE | 2016-10-20 07:00 | XRay Report ---
Exam: XR chest 1V portable Date: 10/20/2016 4:00 AM Indication: Follow-up ventilator respiratory failure Comparison: 10/18/2016 Technical: AP Findings: Endotracheal tube nasogastric tube are unchanged. The distal tip the nasogastric tube is in the fundus of the stomach. Epidural leads are present. The heart is mildly prominent. Minimal atelectatic change or scarring in the infrahilar regions bilaterally. External cardiac leads are present. No pneumothorax. No obvious effusions Impression: 1. Stable appearance of the life support tubes and epidural catheters 2. Mild interstitial thickening possible small area of atelectatic change or infiltrates in the perihilar / infrahilar areas bilaterally PROCEDURE INTERPRETED AT [facility] DEPARTMENT OF RADIOLOGY Final Report Signed by: Dr. Rohan Silva
[2016-10-20] MEDS: MYCOPHENOLATE MOFETIL 250 MG CAPSULE PO SCH ×2 (09:24→20:59)
[2016-10-20] MEDS: TACROLIMUS 0.5 MG CAPSULE PO SCH ×2 (09:24→20:59)
[2016-10-20] MEDS: FAMOTIDINE 20 MG/2 ML VIAL IV SCH ×2 (09:25→20:59)
[2016-10-20] MEDS: ASPIRIN 300 MG SUPP RECTAL SCH (09:41)
--- NOTE | 2016-10-20 10:58 | Pulmonology Progress Note ---
Pulmonary - PN: Subj Interval history: This is a 60-year-old male. I saw him in pulmonary consultation 10/19/2016. My impressions were 1. New onset of multiple seizures. Etiology undetermined. Neurology evaluation recommendations pending. 2. Acute episodes of true syncope while on T-tube. Order to extubate has been canceled 3. Renal transplant. On immunosuppressant agents. 4. High blood pressure 5. Past history of heart disease including stents and myocardial infarction 6. History of skin cancer 7. History of chronic back and neck problems. Patient appears to have an implantable device in his lower thoracic spine. 8. Past history of total knee replacement and left total hip replacement 9. See past history 10. Stool positive for blood. Recent history of nausea vomiting diarrhea. 11. History of heart disease requiring placement of stents. Past history of myocardial infarction 10/20/2016. Patient was ready for extubation yesterday. He then experienced an episode of syncope. He is now on a weaning protocol. Next chest x-ray shows some slight increased markings in both bases. This is minimal. ABGs on FiO2 60 % and mechanical ventilation show pH of 7.36, PCO2 34, PO2 of 252 and a bicarbonate 19.7. Potassium is low at 3.4. Creatinine is 2.6 and BUN is 69. Cardiology consultation appreciated Physical exam. Vital signs. See below Face is symmetrical Neck is symmetrical no meningismus Chest is clear Heart no gallop Abdomen nondistended bowel sounds are positive Extremities nothing to suggest deep venous thrombophlebitis Neurological is as per neurology. Plan. 10/19/2016. 1. Weaning protocol which I started on 10/18/2016. Presently extubation has been canceled secondary to apneic episode. I wonder if this involved seizure activity. 2. Physical therapy protocol 3. Doppler venograms of the lower extremities. 4. H2 blockers. Patient has positive stool 5. Sputum for Gram stain culture and sensitivity 6. Daily chest x-rays and ABGs 10/20/2016. 1. See my note above 2. Watch for apnea 3. Weaning protocol and physical therapy protocol Exam (Progress Note) - Constitutional Vitals: Period Temp Pulse Resp BP Sys/Mckinney Pulse Ox Last 24 Hr 97.2 F-98.3 F 46-60 10-19 83-134/49-77 99-100 Results - Labs CBC & BMP: 10/20/16 05:03 10/20/16 05:03
--- NOTE | 2016-10-20 12:58 | Cardiology Progress Note ---
Jewel Amaro Vanessa, RN, am scribing for, and in the presence of, Ania Lee MD 12:58. Assessment and Plan - Time spent with patient Time spent with patient: Greater than 30 minutes (1) Syncope and collapse Status: Resolved Assessment and plan: SEE PLAN OF CARE LISTED BELOW. Current Visit: No (2) Bradycardia Status: Chronic Assessment and plan: SEE PLAN OF CARE LISTED BELOW. Current Visit: Yes (3) History of coronary artery disease Status: Chronic Assessment and plan: SEE PLAN OF CARE LISTED BELOW. Current Visit: Yes (4) History of renal transplant Status: Chronic Assessment and plan: SEE PLAN OF CARE LISTED BELOW. Current Visit: No (5) Hypertension Status: Chronic Assessment and plan: SEE PLAN OF CARE LISTED BELOW. Current Visit: Yes (6) Hyperlipidemia Status: Chronic Assessment and plan: SEE PLAN OF CARE LISTED BELOW. Current Visit: Yes (7) History of hyperglycemia Status: Chronic Assessment and plan: SEE PLAN OF CARE LISTED BELOW. Current Visit: Yes (8) Tobacco use Status: Chronic Assessment and plan: SEE PLAN OF CARE LISTED BELOW. Current Visit: Yes (9) Acute on chronic renal failure Status: Chronic Assessment and plan: SEE PLAN OF CARE LISTED BELOW. Current Visit: Yes (10) Hypokalemia Status: Acute Assessment and plan: SEE PLAN OF CARE LISTED ABOVE. Current Visit: No Cardiology - PN: Subj Interval history: [employer] MOTOR: DR. 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 Ramey. Status post non-Q MN with stent to mid circumflex in 2012. He also has chronic back pain with previous lumbar nerve stimulator and back surgery. Other history includes squamous cell carcinoma now status post surgical removal and radiation last echo in 12/2015 with preserved LV systolic function, EF 50-55 %, mild diastolic dysfunction and aortic insufficiency. Myocardial perfusion study at the time negative for ischemia. Patient was admitted [facility] on 10/18 after syncopal episode and seizure activity following. He did require intubation for airway protection. Diagnostic workup thus far benign. Cardiology was asked to see for bradycardia, HR 40s-50s. 2016: Patient tolerated CPAP and t-tube well yesterday, but just prior to extubation, spontaneously quit breathing. He remains intubated, no sedation in use this morning. Neurology has evaluated. EEG with mild generalized slowing but no seizure activity. Patient will spontaneously rouse, follows commands and nods head appropriately in response to questions. BP stable, 120/70. Transient hypotension overnight with SBP no lower than 83 mmHg. Remains in sinus bradycardia, HR stable in the 50s. Labs reviewed. Hypokalemic, 3.4. Creatinine 2.6. TSH 0.065. ASSESSMENT/PLAN: 1. BRADYCARDIA - Due to intubation/sedation, unclear whether or not patient is symptomatic with this. Review of clinic records and chart indicates this is most likely a chronic finding, and is not significantly worsened this admission. Continuing to hold beta jossei and other rate reducing agents. TSH 0.065 yesterday. CTNI level peaked at 0.053. EKG is stable. 2. HYPERTENSION - Continues to have transient hypotension but has not required vasopressor support. No antihypertensives are being given at this time. 3. CAD - History of PCI greater than 4 years ago. At last clinic visit with Dr. Ribeiro in June, patient had no anginal complaint. No clinical findings at this time for ACS. Continue low dose ASA. 4. TOBACCO USE - Will need tobacco cessation counseling once extubated, alert. 5. CHRONIC KIDNEY DISEASE - Avoid nephrotoxic agents as able. Nephrology is also following patient this admission. Creatinine 2.6 today. Keppra dose has been adjusted. I will adjust his Lovenox to renal dosing. 6 SYNCOPE / SEIZURE - Diagnostic workup for etiology thus far benign. No history of previous seizures. Dr. De Paz has evaluated. EEG with mild generalized slowing but no seizure activity. 7. HYPOKALEMIA- Replete KCl per IV protocol PRN. Follow up BMP in the morning. Exam (Progress Note) - Constitutional Vitals: Period Temp Pulse Resp BP Sys/Mckinney Pulse Ox Last 24 Hr 97.2 F-98.3 F 45-60 10-19 83-134/49-77 99-100 Exam: General appearance: normal weight, no acute distress, intubated, patient is spontaneously arousable during the exam. No sedation any - Head Head exam: Present: normocephalic, atraumatic,. Absent: hematoma, laceration - Eye Eye exam: Absent: conjunctival injection, nystagmus, periorbital swelling, scleral icterus, laceration to eyelids Pupils: Present: [place]. Absent: constricted, dilated, fixed, irregular, unequal - ENT ENT exam: Present: normal exam, normal external ear exam. ET tube and NG tube intact. - Neck Neck exam: Present: normal inspection. Absent: lymphadenopathy, meningismus, tenderness, thyromegaly - Respiratory Respiratory exam: Present: clear to auscultation bilaterally anteriorly, there is normal rise with ventilated breaths. Absent: accessory muscle use, chest wall tenderness - Cardiovascular Cardiovascular exam: Present: Bradycardic rate and regular rhythm. Absent: carotid bruit, gallop, JVD, rubs, murmur - GI/Abdominal GI/Abdominal exam: Present: normal bowel sounds, soft. Absent: distended, firm , guarding, hernia, mass, tenderness, rebound - Extremities Exam Extremities exam: Present: normal inspection, normal capillary refill. Absent: calf tenderness, edema - Back Exam Back exam: Unable to assess due to patient being on the ventilator - Neurological Exam Neurological exam: Unable to fully assess due to patient being on the ventilator. He does appear to move all extremities purposefully and to command. - Psychiatric Psychiatric exam: Unable to assess due to patient being on the ventilator. - Skin Skin exam: Present: normal color, warm, dry, intact. Absent: cyanosis, diaphoretic, rash, urticaria Result/EKG - Labs CBC & BMP: 10/20/16 05:03 10/20/16 05:03 Lab Results: I have reviewed the past 24 hour labs Labs: Laboratory Results - last 24 hr 10/19/16 10/19/16 10/19/16 07:59 11:20 12:05 WBC RBC Hgb Hct MCV MCH MCHC RDW Plt Count MPV Neut % (Auto) Lymph % (Auto) [place] % (Auto) Eos % (Auto) Baso % (Auto) Neut # (Auto) Lymph # (Auto) [place] # (Auto) Eos # (Auto) Baso # (Auto) Total Counted Immature Gran % Nucleated RBC % Immature Gran # Segmented Neutrophils Band Neutrophils Lymphocytes Monocytes Nucleated RBCs # Platelet Estimate Giant Platelets Immature Plt Fraction Hypochromasia Microcytosis Ovalocytes Judie Cells INR PT Patient/Control Mix Circ Anticoag PTT ABG pH 7.381 ABG pCO2 31.3 L ABG pO2 212.0 H ABG HCO3 19.8 L ABG Total CO2 16.7 L ABG O2 Saturation 99.6 ABG Base Excess -5.6 L FiO2 Sodium Potassium Chloride Carbon Dioxide Anion Gap BUN Creatinine GFR Calculation BUN/Creatinine Ratio Glucose POC Glucose Calculated Osmolality Calcium Magnesium Total Bilirubin AST ALT Alkaline Phosphatase Total Protein Albumin Globulin Albumin/Globulin Ratio Free T4 0.93 TSH 3rd Generation 0.065 L Cortisol 8am Sample 153.9 H 10/19/16 10/19/16 10/19/16 12:42 13:09 13:27 WBC 11.2 RBC 3.49 L Hgb 10.9 L Hct 31.9 L MCV 91.4 MCH 31 MCHC 34.2 RDW 13.6 Plt Count 204 MPV 9.5 L Neut % (Auto) 93.2 H Lymph % (Auto) 3.4 L [place] % (Auto) 2.8 Eos % (Auto) 0.0 Baso % (Auto) 0.1 Neut # (Auto) 10.4 H Lymph # (Auto) 0.4 L [place] # (Auto) 0.3 Eos # (Auto) 0.0 Baso # (Auto) 0.0 Total Counted 100 Immature Gran % 0.5 Nucleated RBC % 0.0 Immature Gran # 0.06 Segmented Neutrophils 90 H Band Neutrophils 2 Lymphocytes 3 L Monocytes 5 Nucleated RBCs # 0.00 Platelet Estimate Normal Giant Platelets Immature Plt Fraction 0.0 Hypochromasia Microcytosis Ovalocytes [place] Cells INR PT Patient/Control Mix Circ Anticoag PTT ABG pH ABG pCO2 ABG pO2 ABG HCO3 ABG Total CO2 ABG O2 Saturation ABG Base Excess FiO2 Sodium 144 Potassium 3.6 Chloride 112 H Carbon Dioxide 18 L Anion Gap 17.6 H BUN 65 H Creatinine 2.20 H GFR Calculation 35 BUN/Creatinine Ratio 29.00 H Glucose 130 H POC Glucose 148 H Calculated Osmolality 306.8 H Calcium 8.8 Magnesium Total Bilirubin 0.70 AST 23 ALT 32 Alkaline Phosphatase 80 Total Protein 6.3 L Albumin 2.8 L Globulin 3.5 Albumin/Globulin Ratio 0.8 L Free T4 TSH 3rd Generation Cortisol 8am Sample 10/19/16 10/20/16 10/20/16 13:27 03:27 05:03 WBC 11.4 RBC 3.34 L Hgb 10.5 L Hct 30.9 L MCV 92.5 MCH 31 MCHC 34.0 RDW 13.8 Plt Count 202 MPV 9.5 L Neut % (Auto) 91.9 H Lymph % (Auto) 3.7 L [place] % (Auto) 3.6 Eos % (Auto) 0.0 Baso % (Auto) 0.1 Neut # (Auto) 10.4 H Lymph # (Auto) 0.4 L [place] # (Auto) 0.4 Eos # (Auto) 0.0 Baso # (Auto) 0.0 Total Counted 100 Immature Gran % 0.7 Nucleated RBC % 0.0 Immature Gran # 0.08 Segmented Neutrophils 90 H Band Neutrophils Lymphocytes 6 L Monocytes 4 Nucleated RBCs # 0.00 Platelet Estimate Adequate Giant Platelets Few Immature Plt Fraction 0.0 Hypochromasia 1+ Microcytosis Slight Ovalocytes Slight [place] Cells Slight INR 1.1 PT Patient/Control Mix 11.5 Circ Anticoag PTT 33.3 ABG pH 7.356 ABG pCO2 33.9 L ABG pO2 252.0 H ABG HCO3 19.7 L ABG Total CO2 17.2 L ABG O2 Saturation 99.7 ABG Base Excess -5.8 L FiO2 60.00 Sodium Potassium Chloride Carbon Dioxide Anion Gap BUN Creatinine GFR Calculation BUN/Creatinine Ratio Glucose POC Glucose Calculated Osmolality Calcium Magnesium Total Bilirubin AST ALT Alkaline Phosphatase Total Protein Albumin Globulin Albumin/Globulin Ratio Free T4 TSH 3rd Generation Cortisol 8am Sample 10/20/16 05:03 WBC RBC Hgb Hct MCV MCH MCHC RDW Plt Count MPV Neut % (Auto) Lymph % (Auto) [place] % (Auto) Eos % (Auto) Baso % (Auto) Neut # (Auto) Lymph # (Auto) [place] # (Auto) Eos # (Auto) Baso # (Auto) Total Counted Immature Gran % Nucleated RBC % Immature Gran # Segmented Neutrophils Band Neutrophils Lymphocytes Monocytes Nucleated RBCs # Platelet Estimate Giant Platelets Immature Plt Fraction Hypochromasia Microcytosis Ovalocytes Judie Cells INR PT Patient/Control Mix Circ Anticoag PTT ABG pH ABG pCO2 ABG pO2 ABG HCO3 ABG Total CO2 ABG O2 Saturation ABG Base Excess FiO2 Sodium 144 Potassium 3.4 L Chloride 112 H Carbon Dioxide 20 L Anion Gap 15.4 H BUN 69 H Creatinine 2.60 H GFR Calculation 29 BUN/Creatinine Ratio 26.00 H Glucose 147 H POC Glucose Calculated Osmolality 308.8 H Calcium 9.0 Magnesium 2.2 Total Bilirubin AST ALT Alkaline Phosphatase Total Protein Albumin Globulin Albumin/Globulin Ratio Free T4 TSH 3rd Generation Cortisol 8am Sample - Diagnostic Findings Procedure: Chest x-ray: image reviewed by me, report reviewed by me (10/20/16: Mild interstitial thickening, possible atelectatic change/infiltrate of perihilar/infrahilar regions bilaterally) - EKG EKG results: interpreted by me, no acute changes EKG shows: bradycardia (Sinus bradycardia, HR mid to upper 50s) I, Ania Lee MD, personally performed the services described in this documentation, ascribed by Jennifer Holloway RN in my presence, and it is both accurate and complete [id number] .
--- NOTE | 2016-10-20 14:51 | XRay Report ---
Exam: XR chest 1V portable Date: 10/20/2016 2:21 PM Indication: Endotracheal tube nasogastric tube follow-up Comparison: 10/20/2016 at 3:14 AM Technical: AP Findings: Endotracheal tube is located at the level just below the mid clavicle. Nasogastric tube is in the fundus of the stomach with gastric distention present. Epidural leads are present. Previous cholecystectomy clips are present. Atelectatic changes are present. Mild cardiomegaly. No pneumothorax clearly demonstrated. Small amount of air adjacent to the right paratracheal region. Impression: 1. Stable appearance of the tubes 2. Increasing gastric distention in the left upper abdomen. 3. Question component of pneumomediastinum. Critical test report called to ICU to patient's nurse Brigitte at the time of dictation. PROCEDURE INTERPRETED AT [facility] DEPARTMENT OF RADIOLOGY Final Report Signed by: Dr. Rohan Silva
[2016-10-20] MEDS ORDERED: PROPOFOL 1,000 MG/100 ML BOTTLE IV ONE (15:02)
--- NOTE | 2016-10-20 15:10 | Hospitalist Progress Note ---
Assessment and Plan (1) Acute on chronic renal insufficiency Status: Acute Assessment and plan: The patient's chronic kidney disease stage III has a usual 1.8 mg/dL creatinine baseline. The patient has had nausea vomiting and diarrhea. Liquid stools remain. Will go to study of the stools to see if there is any bacterial infection. We will hydrate as required and consult with the news library director concerning the patient's tacrolimus. Current Visit: No (2) History of renal transplant Status: Chronic Current Visit: No (3) Syncope and collapse Status: Resolved Current Visit: No Hospitalist: Subjective Interval history: The patient has been on CPAP trials and making good progress. We will going to extubate yesterday but the patient had a fainting episode. CT scan did not reveal any evidence of stroke. Exam - Constitutional Vitals: Period Temp Pulse Resp BP Sys/Mckinney Pulse Ox Last 24 Hr 97.2 F-98.3 F 46-70 10-19 83-134/49-77 99-100 Exam: Constitutional System: Mild distress. No tremulousness. Head: Normocephalic, atraumatic. Ears, Nose and Throat System: No evidence of Otitis or Mastoiditis. No epistaxis or discharge Eyes System: Pupils equal, round, and reactive. Extraocular muscles intact. Neck: Supple, without adenopathy, No jugular venous distention. No thyromegaly , neck mass, or prior surgery apparent. Respiratory System: Chest clear to auscultation. Cardiovascular System: Heart with regular rate and rhythm. No murmur. GI System: Abdomen soft, nontender. Hypo-active bowel sounds present. There is a transplanted kidney in the right suprapubic area Musculoskeletal System: limbs with no pedal edema. Full distal pulses. Results - Labs CBC & BMP: 10/20/16 05:03 10/20/16 05:03 Lab Results: I have reviewed the past 24 hour labs
[2016-10-20] MEDS: HYDROmorphone 2 MG/1 ML VIAL IV PRN ×2 (15:33→20:40)
[2016-10-20] MEDS: SODIUM CHLORIDE 0.9% 1,000 ML IV SCH (15:35)
--- NOTE | 2016-10-20 16:01 | XRay Report ---
Exam: XR chest 1V portable Indication: Intubated, ventilator Comparison study: 10/20/2016 at 221 PM Findings: Endotracheal tube is in similar position terminating approximately 2 cm from the brayan. The degree of lucency/distention about the endotracheal tube tip appears significantly decreased and/or resolved. Esophagogastric tube now coils within the stomach but the gaseous distention seen previously has nearly entirely resolved. There is no pneumothorax. Minimal perihilar opacities are noted, which are nonspecific. Impression: Stable position of support tubes and lines. Significant decrease/resolution of lucency about the distal ET tube, possibly related to decreased pressure within the retention balloon, or resolving mediastinal air, correlate clinically. Significant decrease in gaseous distention of the stomach with feeding tube noted in place. PROCEDURE INTERPRETED AT [facility] DEPARTMENT OF RADIOLOGY Final Report Signed by: Feliberto Dominguez
--- NOTE | 2016-10-20 16:05 | Neurology Progress Note ---
Neurology - PN : Subjective Interval history: Patient seems to be doing okay. No new problems reported. Still on vent. Following simple commands. EEG looks okay Exam (Progress Note) - Constitutional Vitals: Period Temp Pulse Resp BP Sys/Mckinney Pulse Ox Last 24 Hr 97.4 F-98.3 F 46-70 10-19 83-134/49-77 99-100 Exam: GENERAL: Patient is in no acute distress. NECK: Neck is supple. There is no JVD. No carotid bruits present. No thyroid masses. CVS: First and second heart sounds are normal. There is no S3 present. Regular rate and rhythm. RESPIRATORY: Lungs are clear to auscultation without any rales or rhonchi. ABDOMEN: Soft and non-tender. Bowel sounds are present. There is no hepatosplenomegaly. EXT: There is no palpable edema. Peripheral pulses are present. Skin: No rashes Central Nervous system: General: Alert, awake and Oriented x 3 Speech: Fluent Comprehension: Intact and normal Facial expressions: Normal Cranial Nerves: Pupils are equally reactive to light. Doll's head I movements are positive. No facial asymmetry is seen. Motor: Bulk and Tone is normal. Strength: Minimally moving all 4 extremities and following commands Reflexes: 1+ and symmetrical Cerebellar function: Not tested Toes: Equivocal Gait: Not tested Results - Labs CBC & BMP: 10/20/16 05:03 10/20/16 05:03 Assessment and Plan (1) Seizures Status: Acute Assessment and plan: Continue Keppra 500 mg IV every 8 We will watch him closely Current Visit: Yes
[2016-10-20] MEDS: MIDAZOLAM 100 MG in SODIUM CHLORIDE 0.9% 80 ML IV SCH (17:15)
--- NOTE | 2016-10-20 20:12 | Nephrology Progress Note ---
Nephrology - PN: Subj Interval history: Patient is resting on the ventilator but is awake. Serum creatinine is noted to be 2.2. At this time Keppra has been adjusted. 10/20/2016. The patient remains ventilated. He is resting comfortably and will awaken easily. The patient tries to say that he is thirsty through the ET tube. No acute changes. Serum creatinine is 2.6 today. No fevers or chills. Exam (PN)-Nephrology - Vital Signs Vital signs: Period Temp Pulse Resp BP Sys/Mckinney Pulse Ox Last 24 Hr 98.0 F-98.3 F 49-79 10-19 83-153/49-83 99-100 - General Appearance General appearance: well-developed, well-nourished, intubated EENT: ATNC Respiratory: clear Cardiology: no edema, regular rate, regular rhythm Gastrointestinal: normoactive bowel sounds, no tenderness Integumentary: no rash Musculoskeletal: no clubbing Psychiatric: cooperative - Lab 10/20/16 05:03 10/20/16 05:03 Most recent lab results ABG pH 7.356 (7.35-7.45) 10/20/16 03:27 ABG pCO2 33.9 MM HG (35-48) L 10/20/16 03:27 ABG pO2 252.0 MM HG (80-95) H 10/20/16 03:27 ABG HCO3 19.7 MMOL/L (20-26) L 10/20/16 03:27 ABG O2 Saturation 99.7 % (95-100) 10/20/16 03:27 Calcium 9.0 MG/DL (8.5-10.1) 10/20/16 05:03 Phosphorus 3.6 MG/DL (2.5-4.9) 10/18/16 16:27 Magnesium 2.2 MG/DL (1.8-2.4) 10/20/16 05:03 Assessment and Plan (1) History of renal transplant Status: Chronic Assessment and plan: Renal function is stable. We will start half-normal saline at 75 cc an hour Current Visit: No (2) Seizures Status: Acute Assessment and plan: Now on Keppra 3 times a day. Current Visit: Yes (3) Altered mental status Status: Acute Current Visit: Yes (4) Bradycardia Status: Chronic Current Visit: Yes
[2016-10-20] MEDS: SODIUM CHLORIDE 0.45% 1,000 ML IV SCH (20:41)
[2016-10-20] MEDS: ENOXAPARIN 30 MG/0.3 ML SYRINGE SUBCUT SCH (20:59)
[2016-10-21] MEDS: HYDROCORTISONE 100 MG VIAL IV SCH ×3 (00:27→12:59)
[2016-10-21] MEDS: PIPERACILLIN/TAZOBACTAM 3,375 MG in SODIUM CHLORIDE 0.9% 100 ML IV SCH ×3 (02:57→18:16)
[2016-10-21 03:26] LABS: ABG Base Excess -4.7 MMOL/L (-2.5-2.5); ABG HCO3 20.6 MMOL/L (20-26); ABG Oxygen Saturation 99.5 % (95-100); ABG PCO2 31.8 MM HG (35-48); ABG TCO2 16.9 MMOL/L (23-27)
[2016-10-21 05:22] LABS: Hematocrit 32.3 VOL% (42.0-52.0); Hemoglobin 10.9 GM/DL (14.0-18.0); Immature Granulocytes % 0.4 %; Immature Granulocytes Absolute 0.05 #; Lymphocytes # 0.4 10*3/uL (1.4-4.0); Lymphocytes % 3.4 % (21.2-54.2); Mean Corpuscular HGB Conc 33.7 GM/DL (32-36); Mean Corpuscular Hemoglobin 31 PG (27-34); Mean Corpuscular Volume 92.3 FL (87-102); Mean Platelet Volume 9.7 FL (9.6-12.0); Monocytes # 0.7 10*3/uL (0.11-0.8); Monocytes % 5.5 % (1.7-12.7); Neutrophils # 11.3 10*3/uL (1.4-7.4); Neutrophils % 90.7 % (38.7-73.9); Platelet Count 195 T/CUMM (130-400); Red Cell Distribution Width 13.7 % (9.3-17.3); White Blood Count 12.5 T/CUMM (4-12)
[2016-10-21 05:44] LABS: Lymphocytes 6 % (20-55); Segmented Neutrophils 86 % (50-85); Total Cells Counted 100
[2016-10-21 05:45] LABS: Burr Cells Slight; Hypochromasia 1+; Microcytosis Slight; Ovalocytes Slight; Platelet Estimate Adequate
[2016-10-21 05:49] LABS: Calcium 8.8 MG/DL (8.5-10.1); Magnesium 2.4 MG/DL (1.8-2.4); Osmolality,Calculated 314.6 MOS/KG (273-304); Potassium 3.2 MMOL/L (3.5-5.1)
[2016-10-21] MEDS: POTASSIUM CHLORIDE RIDER 10 MEQ in PREMIX 1 EACH IV PRN ×3 (06:20→08:28)
--- NOTE | 2016-10-21 07:56 | XRay Report ---
Portable chest October 21, 2016 at 0326 hours Indication: Line placement Comparison images from previous day at 0304 hours Findings: Cardiomediastinal contours are stable. Support tubes and lines remain in satisfactory. Mild bibasilar atelectasis osseous abnormality Impression: Support tubes and lines remain in satisfactory position. Mild bibasilar atelectasis PROCEDURE INTERPRETED AT [facility] DEPARTMENT OF RADIOLOGY Final Report Signed by: Asael Butts
[2016-10-21] MEDS: FAMOTIDINE 20 MG/2 ML VIAL IV SCH ×2 (08:26→20:35)
[2016-10-21] MEDS: MYCOPHENOLATE MOFETIL 250 MG CAPSULE PO SCH ×2 (08:27→20:34)
[2016-10-21] MEDS: TACROLIMUS 0.5 MG CAPSULE PO SCH ×2 (08:27→20:34)
[2016-10-21] MEDS: ASPIRIN 325 MG TABLET PO SCH (08:27)
--- NOTE | 2016-10-21 08:28 | Nephrology Progress Note ---
Nephrology - PN: Subj Interval history: Patient is resting on the ventilator but is awake. Serum creatinine is noted to be 2.2. At this time Keppra has been adjusted. 10/20/2016. The patient remains ventilated. He is resting comfortably and will awaken easily. The patient tries to say that he is thirsty through the ET tube. No acute changes. Serum creatinine is 2.6 today. No fevers or chills. 10/21/2016. The patient remains ventilated is awake this morning. Plans for extubation sometime today. Serum creatinine is noted to be 2.6. Started on IV fluids last night. Exam (PN)-Nephrology - Vital Signs Vital signs: Period Temp Pulse Resp BP Sys/Mckinney Pulse Ox Last 24 Hr 97.1 F-98.3 F 43-79 10-19 119-161/63-92 100-100 - General Appearance General appearance: intubated EENT: ATNC Respiratory: clear Cardiology: regular rate, regular rhythm Gastrointestinal: normoactive bowel sounds Integumentary: no rash Psychiatric: cooperative - Lab 10/21/16 05:04 10/21/16 05:04 Most recent lab results ABG pH 7.390 (7.35-7.45) 10/21/16 03:00 ABG pCO2 31.8 MM HG (35-48) L 10/21/16 03:00 ABG pO2 239.0 MM HG (80-95) H 10/21/16 03:00 ABG HCO3 20.6 MMOL/L (20-26) 10/21/16 03:00 ABG O2 Saturation 99.5 % (95-100) 10/21/16 03:00 Calcium 8.8 MG/DL (8.5-10.1) 10/21/16 05:04 Phosphorus 3.6 MG/DL (2.5-4.9) 10/18/16 16:27 Magnesium 2.4 MG/DL (1.8-2.4) 10/21/16 05:04 Assessment and Plan (1) History of renal transplant Status: Chronic Assessment and plan: Renal function is stable. Continue half-normal saline at 75 cc an hour Current Visit: No (2) Seizures Status: Acute Assessment and plan: Now on Keppra 3 times a day. Current Visit: Yes (3) Altered mental status Status: Acute Current Visit: Yes (4) Bradycardia Status: Chronic Current Visit: Yes
[2016-10-21] MEDS: SODIUM CHLORIDE 0.45% 1,000 ML IV SCH ×2 (10:19→22:41)
--- NOTE | 2016-10-21 11:07 | Pulmonology Progress Note ---
Pulmonary - PN: Subj Interval history: This is a 60-year-old male. I saw him in pulmonary consultation 10/19/2016. My impressions were 1. New onset of multiple seizures. Etiology undetermined. Neurology evaluation recommendations pending. 2. Acute episodes of true syncope while on T-tube. Order to extubate has been canceled 3. Renal transplant. On immunosuppressant agents. 4. High blood pressure 5. Past history of heart disease including stents and myocardial infarction 6. History of skin cancer 7. History of chronic back and neck problems. Patient appears to have an implantable device in his lower thoracic spine. 8. Past history of total knee replacement and left total hip replacement 9. See past history 10. Stool positive for blood. Recent history of nausea vomiting diarrhea. 11. History of heart disease requiring placement of stents. Past history of myocardial infarction 10/20/2016. Patient was ready for extubation yesterday. He then experienced an episode of syncope. He is now on a weaning protocol. Next chest x-ray shows some slight increased markings in both bases. This is minimal. ABGs on FiO2 60 % and mechanical ventilation show pH of 7.36, PCO2 34, PO2 of 252 and a bicarbonate 19.7. Potassium is low at 3.4. Creatinine is 2.6 and BUN is 69. Cardiology consultation appreciated 10/21/2016. This morning the patient extubated himself. So far no apneic spells. His chest x-ray is stable his ABGs look good. This patient's mental status is still way off. Potassium is 3.2 and needs replacing. Labs been reviewed. Medicines have been reviewed. Physical exam. Vital signs. See below Face is symmetrical Neck is symmetrical no meningismus Chest is clear Heart no gallop Abdomen nondistended bowel sounds are positive Extremities nothing to suggest deep venous thrombophlebitis Neurological is as per neurology. Plan. 10/19/2016. 1. Weaning protocol which I started on 10/18/2016. Presently extubation has been canceled secondary to apneic episode. I wonder if this involved seizure activity. 2. Physical therapy protocol 3. Doppler venograms of the lower extremities. 4. H2 blockers. Patient has positive stool 5. Sputum for Gram stain culture and sensitivity 6. Daily chest x-rays and ABGs 10/20/2016. 1. See my note above 2. Watch for apnea 3. Weaning protocol and physical therapy protocol 10/21/2016. 1. See my note above 2. Patient has extubated himself. 3. Replacement Exam (Progress Note) - Constitutional Vitals: Period Temp Pulse Resp BP Sys/Mckinney Pulse Ox Last 24 Hr 97.1 F-98.3 F 43-79 10-19 119-175/69-99 100-100 Results - Labs CBC & BMP: 10/21/16 05:04 10/21/16 05:04
[2016-10-21 12:37] LABS: ABG Base Excess -4.2 MMOL/L (-2.5-2.5); ABG PCO2 31.7 MM HG (35-48); ABG PH 7.402 (7.35-7.45); ABG TCO2 17.8 MMOL/L (23-27)
[2016-10-21] MEDS: HYDROmorphone 2 MG/1 ML VIAL IV PRN ×2 (13:01→22:35)
--- NOTE | 2016-10-21 13:52 | Neurology Progress Note ---
Neurology - PN : Subjective Interval history: Patient is extubated. Seems to be doing a little better. Still somewhat confused. Will change Keppra to p.o. from tomorrow Exam (Progress Note) - Constitutional Vitals: Period Temp Pulse Resp BP Sys/Mckinney Pulse Ox Last 24 Hr 97.1 F-98.2 F 43-79 12-19 119-175/72-99 100-100 Exam: GENERAL: Patient is in no acute distress. NECK: Neck is supple. There is no JVD. No carotid bruits present. No thyroid masses. CVS: First and second heart sounds are normal. There is no S3 present. Regular rate and rhythm. RESPIRATORY: Lungs are clear to auscultation without any rales or rhonchi. ABDOMEN: Soft and non-tender. Bowel sounds are present. There is no hepatosplenomegaly. EXT: There is no palpable edema. Peripheral pulses are present. Skin: No rashes Central Nervous system: General: Alert, awake Speech: Fluent Comprehension: Fair Facial expressions: Normal Cranial Nerves: Pupils are equally reactive to light. Doll's head I movements are positive. No facial asymmetry is seen. Motor: Bulk and Tone is normal. Strength: Minimally moving all 4 extremities and following commands Reflexes: 1+ and symmetrical Cerebellar function: Not tested Toes: Equivocal Gait: Not tested Results - Labs CBC & BMP: 10/21/16 05:04 10/21/16 05:04 Assessment and Plan (1) Seizures Status: Acute Assessment and plan: Continue Keppra 500 mg IV every 8 Continue close watchful observation Go to the floor when okay with PCP Current Visit: Yes
--- NOTE | 2016-10-21 13:52 | Hospitalist Progress Note ---
Assessment and Plan (1) Acute on chronic renal insufficiency Status: Acute Assessment and plan: The patient's chronic kidney disease stage III has a usual 1.8 mg/dL creatinine baseline. The patient has had nausea vomiting and diarrhea. Liquid stools remain. Will go to study of the stools to see if there is any bacterial infection. We will hydrate as required and consult with the medical anthropologist concerning the patient's tacrolimus. We will continue the patient on Keppra antiepileptic medicine. Current Visit: No (2) History of renal transplant Status: Chronic Current Visit: No (3) Syncope and collapse Status: Resolved Current Visit: No Hospitalist: Subjective Interval history: The patient was admitted to the hospital with syncope and possible seizure. The patient is still having some spells of staring. I coordinate care with Dr. Tori Hackett today and reviewed the patient's plan of care with his at the bedside. The patient was extubated from the ventilator this morning. Exam - Constitutional Vitals: Period Temp Pulse Resp BP Sys/Mckinney Pulse Ox Last 24 Hr 97.1 F-98.2 F 43-79 12-19 119-175/72-99 100-100 Exam: Constitutional System: Mild distress. No tremulousness. Head: Normocephalic, atraumatic. Ears, Nose and Throat System: No evidence of Otitis or Mastoiditis. No epistaxis or discharge Eyes System: Pupils equal, round, and reactive. Extraocular muscles intact. Neck: Supple, without adenopathy, No jugular venous distention. No thyromegaly , neck mass, or prior surgery apparent. Respiratory System: Chest clear to auscultation. Cardiovascular System: Heart with regular rate and rhythm. No murmur. GI System: Abdomen soft, nontender. Hypo-active bowel sounds present. There is a transplanted kidney in the right suprapubic area Musculoskeletal System: limbs with no pedal edema. Full distal pulses. Results - Labs CBC & BMP: 10/21/16 05:04 10/21/16 05:04 Lab Results: I have reviewed the past 24 hour labs
[2016-10-21] MEDS: POTASSIUM CHLORIDE 20 MEQ TABLET PO SCH ×3 (14:59→21:51)
[2016-10-21] MEDS: levETIRAcetam 500 MG TABLET PO SCH ×2 (15:01→20:34)
[2016-10-21] MEDS: NIFEdipine 10 MG CAPSULE PO PRN ×2 (15:02→22:03)
--- NOTE | 2016-10-21 18:15 | Cardiology Progress Note ---
Jewel Amaro Vanessa, RN, am scribing for, and in the presence of, Ania Lee MD 18:15. Assessment and Plan - Time spent with patient Time spent with patient: Greater than 30 minutes (1) Bradycardia Status: Chronic Assessment and plan: SEE PLAN OF CARE LISTED BELOW. Current Visit: Yes (2) History of coronary artery disease Status: Chronic Assessment and plan: SEE PLAN OF CARE LISTED BELOW. Current Visit: Yes (3) History of renal transplant Status: Chronic Assessment and plan: SEE PLAN OF CARE LISTED BELOW. Current Visit: No (4) Hypertension Status: Chronic Assessment and plan: SEE PLAN OF CARE LISTED BELOW. Current Visit: Yes (5) Hyperlipidemia Status: Chronic Assessment and plan: SEE PLAN OF CARE LISTED BELOW. Current Visit: Yes (6) History of hyperglycemia Status: Chronic Assessment and plan: SEE PLAN OF CARE LISTED BELOW. Current Visit: Yes (7) Tobacco use Status: Chronic Assessment and plan: SEE PLAN OF CARE LISTED BELOW. Current Visit: Yes (8) Acute on chronic renal failure Status: Chronic Assessment and plan: SEE PLAN OF CARE LISTED BELOW. Current Visit: Yes (9) Hypokalemia Status: Acute Assessment and plan: SEE PLAN OF CARE LISTED ABOVE. 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 Ramey. Status post non-Q DC with stent to mid circumflex in 2012. He also has chronic back pain with previous lumbar nerve stimulator and back surgery. Other history includes squamous cell carcinoma now status post surgical removal and radiation last echo in 12/2015 with preserved LV systolic function, EF 50-55 %, mild diastolic dysfunction and aortic insufficiency. Myocardial perfusion study at the time negative for ischemia. Patient was admitted [facility] on 10/18 after syncopal episode and seizure activity following. He did require intubation for airway protection. Diagnostic workup thus far benign. Cardiology was asked to see for bradycardia, HR 40s-50s. 2016: No acute changes or new findings in patient's hemodynamic status overnight. Patient remains intubated in the ICU this morning. He is not receiving sedation , and he responds appropriately by following commands, is mouthing words around ET tube. He has tolerated CPAP trials well, and is tentatively planned for extubation later today. SBP 150-160 mmHg. Rhythm unchanged and is sinus bradycardia with pulse rate upper 40s to low 50s, occasionally into the 60s. Labs reviewed. Remains hypokalemic, K+ down to 3.2. Being repleted with IV KCl per PRN protocol. Magnesium 2.4. Creatinine is 2.7, and he was started on gentle IV fluid hydration yesterday evening. ASSESSMENT/PLAN: 1. BRADYCARDIA -hopefully patient will be extubated soon, and it can be further determined whether or not patient is symptomatic with bradycardia. Review of clinic records and chart indicates this is most likely a chronic finding, and is not significantly worsened this admission. Continuing to hold beta jossie and other rate reducing agents. TSH 0.065 this admit. CTNI level peaked at 0.053. EKG remained stable. 2. HYPERTENSION -transient hypotension has resolved, and SBP elevated 150-160 range today with. Will begin resuming antihypertensives. 3. CAD - History of PCI greater than 4 years ago. At last clinic visit with Dr. Ribeiro in June, patient had no anginal complaint. Patient has had no clinical findings at this time for ACS. Continue low dose ASA. 4. TOBACCO USE - Will need tobacco cessation counseling once extubated, alert. 5. CHRONIC KIDNEY DISEASE - Avoid nephrotoxic agents as able. Nephrology is also following patient this admission. Creatinine 2.7 today. Keppra dose has been adjusted. Lovenox has been adjusted to renal dosing. He was also started on gentle IV fluid hydration yesterday. 6 SYNCOPE / SEIZURE - Diagnostic workup for etiology thus far benign. No history of previous seizures. Dr. De Paz has evaluated. EEG with mild generalized slowing but no seizure activity. 7. HYPOKALEMIA-no improvement today with K+ 3.2. Continue to replete KCl per IV PRN protocol. Follow up BMP in the morning. Exam (Progress Note) - Constitutional Vitals: Period Temp Pulse Resp BP Sys/Mckinney Pulse Ox Last 24 Hr 97.1 F-98.3 F 43-79 10-19 119-161/63-92 100-100 Exam: General appearance: normal weight, no acute distress, intubated, patient is spontaneously arousable during the exam. No sedation in use - Head Head exam: Present: normocephalic, atraumatic,. Absent: hematoma, laceration - Eye Eye exam: Absent: conjunctival injection, nystagmus, periorbital swelling, scleral icterus, laceration to eyelids Pupils: Present: LISSETTE. Absent: constricted, dilated, fixed, irregular, unequal - ENT ENT exam: Present: normal exam, normal external ear exam. ET tube and NG tube intact. - Neck Neck exam: Present: normal inspection. Absent: lymphadenopathy, meningismus, tenderness, thyromegaly - Respiratory Respiratory exam: Present: clear to auscultation bilaterally anteriorly, there is normal rise with ventilated breaths. Absent: accessory muscle use, chest wall tenderness, rhonchi, wheeze. - Cardiovascular Cardiovascular exam: Present: Bradycardic rate and regular rhythm. Absent: carotid bruit, gallop, JVD, rubs, murmur - GI/Abdominal GI/Abdominal exam: Present: normal bowel sounds, soft. Absent: distended, firm , guarding, hernia, mass, tenderness, rebound - Extremities Exam Extremities exam: Present: normal inspection, normal capillary refill. Absent: calf tenderness, edema - Back Exam Back exam: Unable to assess due to patient being on the ventilator - Neurological Exam Neurological exam: Unable to fully assess due to patient being on the ventilator. He does appear to move all extremities purposefully and to command. Mouth words around ET tube. - Psychiatric Psychiatric exam: Unable to assess due to patient being on the ventilator. He is calm and resting comfortably on ventilator without sedation and use. - Skin Skin exam: Present: normal color, warm, dry, intact. Absent: cyanosis, diaphoretic, rash, urticaria Result/EKG - Labs CBC & BMP: 10/21/16 05:04 10/21/16 05:04 Lab Results: I have reviewed the past 24 hour labs Labs: Laboratory Results - last 24 hr 10/18/16 10/20/16 10/21/16 19:25 11:52 03:00 WBC RBC Hgb Hct MCV MCH MCHC RDW Plt Count MPV Neut % (Auto) Lymph % (Auto) Haakon % (Auto) Eos % (Auto) Baso % (Auto) Neut # (Auto) Lymph # (Auto) Haakon # (Auto) Eos # (Auto) Baso # (Auto) Total Counted Immature Gran % Nucleated RBC % Immature Gran # Segmented Neutrophils Lymphocytes Monocytes Nucleated RBCs # Platelet Estimate Immature Plt Fraction Hypochromasia Microcytosis Ovalocytes Judie Cells Morphology Comment ABG pH 7.390 ABG pCO2 31.8 L ABG pO2 239.0 H ABG HCO3 20.6 ABG Total CO2 16.9 L ABG O2 Saturation 99.5 ABG Base Excess -4.7 L Sodium Potassium Chloride Carbon Dioxide Anion Gap BUN Creatinine GFR Calculation BUN/Creatinine Ratio Glucose POC Glucose 149 H Calculated Osmolality Calcium Magnesium Tacrolimus 10.5 10/21/16 10/21/16 05:04 05:04 WBC 12.5 H RBC 3.50 L Hgb 10.9 L Hct 32.3 L MCV 92.3 MCH 31 MCHC 33.7 RDW 13.7 Plt Count 195 MPV 9.7 Neut % (Auto) 90.7 H Lymph % (Auto) 3.4 L Haakon % (Auto) 5.5 Eos % (Auto) 0.0 Baso % (Auto) 0.0 Neut # (Auto) 11.3 H Lymph # (Auto) 0.4 L Haakon # (Auto) 0.7 Eos # (Auto) 0.0 Baso # (Auto) 0.0 Total Counted 100 Immature Gran % 0.4 Nucleated RBC % 0.0 Immature Gran # 0.05 Segmented Neutrophils 86 H Lymphocytes 6 L Monocytes 8 Nucleated RBCs # 0.00 Platelet Estimate Adequate Immature Plt Fraction 0.0 Hypochromasia 1+ Microcytosis Slight Ovalocytes Slight Judie Cells Slight Morphology Comment ABG pH ABG pCO2 ABG pO2 ABG HCO3 ABG Total CO2 ABG O2 Saturation ABG Base Excess Sodium 146 H Potassium 3.2 L Chloride 115 H Carbon Dioxide 20 L Anion Gap 14.2 BUN 75 H Creatinine 2.70 H GFR Calculation 27 BUN/Creatinine Ratio 27.00 H Glucose 158 H POC Glucose Calculated Osmolality 314.6 H Calcium 8.8 Magnesium 2.4 Tacrolimus - Diagnostic Findings Procedure: Chest x-ray: image reviewed by me, report reviewed by me (10/21/16: Mild bibasilar atelectasis) - EKG EKG results: interpreted by me, no acute changes EKG shows: bradycardia (Sinus bradycardia, upper 40s mid 50s) IJesus Jennifer, MD, personally performed the services described in this documentation, ascribed by Jennifer Holloway RN in my presence, and it is both accurate and complete .
[2016-10-21] MEDS: ENOXAPARIN 30 MG/0.3 ML SYRINGE SUBCUT SCH (20:35)
[2016-10-22] MEDS: NIFEdipine 10 MG CAPSULE PO PRN (02:10)
[2016-10-22] MEDS: PIPERACILLIN/TAZOBACTAM 3,375 MG in SODIUM CHLORIDE 0.9% 100 ML IV SCH (02:31)
[2016-10-22 03:56] LABS: Calcium 9.2 MG/DL (8.5-10.1); Magnesium 2.3 MG/DL (1.8-2.4); Osmolality,Calculated 302.7 MOS/KG (273-304); Potassium 3.4 MMOL/L (3.5-5.1)
[2016-10-22] MEDS: POTASSIUM CHLORIDE RIDER 10 MEQ in PREMIX 1 EACH IV PRN ×3 (04:29→06:33)
[2016-10-22] MEDS: HYDROmorphone 2 MG/1 ML VIAL IV PRN (05:25)
[2016-10-22] MEDS: levETIRAcetam 500 MG TABLET PO SCH ×2 (08:35→22:06)
[2016-10-22] MEDS: TACROLIMUS 0.5 MG CAPSULE PO SCH ×2 (08:35→23:19)
[2016-10-22] MEDS: ASPIRIN 325 MG TABLET PO SCH (08:35)
[2016-10-22] MEDS: FAMOTIDINE 20 MG/2 ML VIAL IV SCH (08:35)
[2016-10-22] MEDS: MYCOPHENOLATE MOFETIL 250 MG CAPSULE PO SCH ×2 (08:35→22:06)
--- NOTE | 2016-10-22 08:36 | XRay Report ---
Portable chest Exam date: 10/22/2016 4:00 AM Indication: Shortness of breath, cough Comparison: Previous day at 0528 hours Findings: Cardiomediastinal contours are stable. Interval extubation and removal of the esophageal gastric tubes. Low lung volumes. No consolidative chest process. No acute osseous abnormalities. Visualized upper abdomen demonstrates no acute pathology. Impression: Uncomplicated extubation and esophageal gastric tube removal. Low lung volumes otherwise, lungs are clear PROCEDURE INTERPRETED AT [facility] DEPARTMENT OF RADIOLOGY Final Report Signed by: Asael Butts
[2016-10-22] MEDS ORDERED: HYDROCORTISONE 100 MG VIAL IV SCH (09:00)
--- NOTE | 2016-10-22 09:24 | Hospitalist Progress Note ---
Assessment and Plan (1) Acute on chronic renal insufficiency Status: Acute Assessment and plan: The patient's chronic kidney disease stage III has a usual 1.8 mg/dL creatinine baseline, and the patient appears to be back to baseline. Liquid stools remain, and the patient has been on Zosyn. I am going to discontinue Zosyn and substitute Ceftin. We are going to transition all medicines to oral and discontinue IV hydration. The patient will be transferred to the floor and will have continued observation of neurologic status for possible seizures. Will recheck electrolytes tomorrow. Current Visit: No (2) History of renal transplant Status: Chronic Current Visit: No Hospitalist: Subjective Interval history: The patient is hemodynamically stable. He remains off ventilation. The patient has less delirium now and has rational conversation. The patient has no apparent focal weakness. Exam - Constitutional Vitals: Period Temp Pulse Resp BP Sys/Mckinney Pulse Ox Last 24 Hr 97.9 F-98.5 F 41-89 10-24 122-175/70-95 96-100 Exam: Constitutional System: No distress. No tremulousness. Head: Normocephalic, atraumatic. Ears, Nose and Throat System: No evidence of Otitis or Mastoiditis. No epistaxis or discharge Eyes System: Pupils equal, round, and reactive. Extraocular muscles intact. Neck: Supple, without adenopathy, No jugular venous distention. No thyromegaly , neck mass, or prior surgery apparent. Respiratory System: Chest clear to auscultation. Cardiovascular System: Heart with regular rate and rhythm. No murmur. GI System: Abdomen soft, nontender. Hypo-active bowel sounds present. There is a transplanted kidney in the right suprapubic area Musculoskeletal System: limbs with no pedal edema. Full distal pulses. Results - Labs CBC & BMP: 10/21/16 05:04 10/22/16 02:25 Lab Results: I have reviewed the past 24 hour labs
[2016-10-22] MEDS: FAMOTIDINE 20 MG TABLET PO SCH (09:30)
[2016-10-22] MEDS: CARVEDILOL 25 MG TABLET PO SCH ×2 (09:34→22:08)
[2016-10-22] MEDS: CEFUROXIME 250 MG TABLET PO SCH ×2 (09:34→22:07)
--- NOTE | 2016-10-22 09:45 | Neurology Progress Note ---
Neurology - PN : Subjective Interval history: Patient seems to be doing really well. More alert and awake and following commands. Speech is appropriate. No seizures reported. Just extremely weak all over. Exam (Progress Note) - Constitutional Vitals: Period Temp Pulse Resp BP Sys/Mckinney Pulse Ox Last 24 Hr 97.9 F-98.5 F 41-89 10-24 122-175/70-95 96-100 Exam: GENERAL: Patient is in no acute distress. NECK: Neck is supple. There is no JVD. No carotid bruits present. No thyroid masses. CVS: First and second heart sounds are normal. There is no S3 present. Regular rate and rhythm. RESPIRATORY: Lungs are clear to auscultation without any rales or rhonchi. ABDOMEN: Soft and non-tender. Bowel sounds are present. There is no hepatosplenomegaly. EXT: There is no palpable edema. Peripheral pulses are present. Skin: No rashes Central Nervous system: General: Alert, awake Speech: Fluent Comprehension: Fair Facial expressions: Normal Cranial Nerves: Pupils are equally reactive to light. Doll's head I movements are positive. No facial asymmetry is seen. Motor: Bulk and Tone is normal. Strength: Minimally moving all 4 extremities and following commands Reflexes: 1+ and symmetrical Cerebellar function: Not tested Toes: Equivocal Gait: Not tested Results - Labs CBC & BMP: 10/21/16 05:04 10/22/16 02:25 Assessment and Plan (1) Seizures Status: Acute Assessment and plan: Continue Keppra 500 mg IV every 8 Continue close watchful observation Go to the floor when okay with PCP We will switch him over to p.o. Keppra tomorrow Current Visit: Yes
--- NOTE | 2016-10-22 12:46 | Nephrology Progress Note ---
Nephrology - PN: Subj Interval history: Patient is resting on the ventilator but is awake. Serum creatinine is noted to be 2.2. At this time Keppra has been adjusted. 10/20/2016. The patient remains ventilated. He is resting comfortably and will awaken easily. The patient tries to say that he is thirsty through the ET tube. No acute changes. Serum creatinine is 2.6 today. No fevers or chills. 10/21/2016. The patient remains ventilated is awake this morning. Plans for extubation sometime today. Serum creatinine is noted to be 2.6. Started on IV fluids last night. 10/22/2016. The patient is now extubated. He continues to do well. Still feels weak on his left side. Serum creatinine is now 1.8. IV fluids have been stopped. Continue to encourage patient with p.o. fluid intake. Exam (PN)-Nephrology - Vital Signs Vital signs: Period Temp Pulse Resp BP Sys/Mckinney Pulse Ox Last 24 Hr 97.9 F-98.5 F 46-89 10-24 122-175/70-95 96-100 - General Appearance General appearance: well-developed, well-nourished EENT: ATNC Neck: supple Respiratory: clear Cardiology: regular rate, regular rhythm Gastrointestinal: normoactive bowel sounds, no tenderness, no guarding Neurologic: alert and oriented x3 Musculoskeletal: no clubbing Psychiatric: mood/affect appropriate, cooperative - Lab 10/21/16 05:04 10/22/16 02:25 Most recent lab results ABG pH 7.402 (7.35-7.45) 10/21/16 12:25 ABG pCO2 31.7 MM HG (35-48) L 10/21/16 12:25 ABG pO2 133.0 MM HG (80-95) H 10/21/16 12:25 ABG HCO3 21.0 MMOL/L (20-26) 10/21/16 12:25 ABG O2 Saturation 99.0 % (95-100) 10/21/16 12:25 Calcium 9.2 MG/DL (8.5-10.1) 10/22/16 02:25 Phosphorus 3.6 MG/DL (2.5-4.9) 10/18/16 16:27 Magnesium 2.3 MG/DL (1.8-2.4) 10/22/16 02:25 Assessment and Plan (1) History of renal transplant Status: Chronic Assessment and plan: Renal function is stable. Current Visit: No (2) Seizures Status: Acute Assessment and plan: Now on Keppra 3 times a day. Current Visit: Yes (3) Altered mental status Status: Acute Current Visit: Yes (4) Bradycardia Status: Chronic Current Visit: Yes
--- NOTE | 2016-10-22 14:06 | Pulmonology Progress Note ---
Pulmonary - PN: Subj Interval history: Thomas Licea, AGNP-, acting as scribe for Dr. Rohan Rowley This is a 60-year-old male. We saw him in pulmonary consultation 10/19/2016. At that time, our impressions were: 1. New onset of multiple seizures. Etiology undetermined. Neurology evaluation recommendations pending. 2. Acute episodes of true syncope while on T-tube. Order to extubate has been canceled 3. Renal transplant. On immunosuppressant agents. 4. High blood pressure 5. Past history of heart disease including stents and myocardial infarction 6. History of skin cancer 7. History of chronic back and neck problems. Patient appears to have an implantable device in his lower thoracic spine. 8. Past history of total knee replacement and left total hip replacement 9. See past history 10. Stool positive for blood. Recent history of nausea vomiting diarrhea. 11. History of heart disease requiring placement of stents. Past history of myocardial infarction 10/20/2016. Patient was ready for extubation yesterday. He then experienced an episode of syncope. He is now on a weaning protocol. Next chest x-ray shows some slight increased markings in both bases. This is minimal. ABGs on FiO2 60 % and mechanical ventilation show pH of 7.36, PCO2 34, PO2 of 252 and a bicarbonate 19.7. Potassium is low at 3.4. Creatinine is 2.6 and BUN is 69. Cardiology consultation appreciated 10/21/2016. This morning the patient extubated himself. So far no apneic spells. His chest x-ray is stable his ABGs look good. This patient's mental status is still way off. Potassium is 3.2 and needs replacing. 10/22/2016. As noted above, the patient extubated himself yesterday. He has done well from a pulmonary standpoint since that time. His chest x-ray is stable without infiltrates. His oxygen saturations on room air are in the upper 90s. ABGs were not obtained this morning. Medications have been reviewed. We made no changes today. Labs been reviewed. Creatinine has improved to 1.0, BUN 49, sodium 145, potassium 3.4, magnesium 2.3 Exam (Progress Note) - Constitutional Vitals: Period Temp Pulse Resp BP Sys/Mckinney Pulse Ox Last 24 Hr 97.9 F-98.5 F 46-89 12-24 122-175/70-95 96-100 Exam: Chest is clear Heart no gallop Abdomen is nontender and nondistended; bowel sounds are positive 4 Extremities with nothing to suggest acute deep venous thrombophlebitis Psychiatric at least oriented to person but still somewhat confused Neurologic as per neurology Plan: The patient is stable from a pulmonary standpoint since extubation. We will sign off. Please reconsult as needed. Results - Labs CBC & BMP: 10/21/16 05:04 10/22/16 02:25
--- NOTE | 2016-10-22 15:56 | Cardiology Progress Note ---
Jewel Amaro Vanessa, RN, am scribing for, and in the presence of, Ania Lee MD 15:55. Assessment and Plan - Time spent with patient Time spent with patient: Greater than 30 minutes (1) Bradycardia Status: Chronic Assessment and plan: SEE PLAN OF CARE LISTED BELOW. Current Visit: Yes (2) History of coronary artery disease Status: Chronic Assessment and plan: SEE PLAN OF CARE LISTED BELOW. Current Visit: Yes (3) History of renal transplant Status: Chronic Assessment and plan: SEE PLAN OF CARE LISTED BELOW. Current Visit: No (4) Hypertension Status: Chronic Assessment and plan: SEE PLAN OF CARE LISTED BELOW. Current Visit: Yes (5) Hyperlipidemia Status: Chronic Assessment and plan: SEE PLAN OF CARE LISTED BELOW. Current Visit: Yes (6) History of hyperglycemia Status: Chronic Assessment and plan: SEE PLAN OF CARE LISTED BELOW. Current Visit: Yes (7) Tobacco use Status: Chronic Assessment and plan: SEE PLAN OF CARE LISTED BELOW. Current Visit: Yes (8) Acute on chronic renal failure Status: Chronic Assessment and plan: SEE PLAN OF CARE LISTED BELOW. Current Visit: Yes (9) Hypokalemia Status: Acute Assessment and plan: SEE PLAN OF CARE LISTED ABOVE. Current Visit: No Cardiology - PN: Subj Interval history: PRIMARY DATABASE DEVELOPMENT PROJECT MANAGER: DR. 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 Ramey. Status post non-Q [place] with stent to mid circumflex in 2012. He also has chronic back pain with previous lumbar nerve stimulator and back surgery. Other history includes squamous cell carcinoma now status post surgical removal and radiation last echo in 12/2015 with preserved LV systolic function, EF 50-55 %, mild diastolic dysfunction and aortic insufficiency. Myocardial perfusion study at the time negative for ischemia. Patient was admitted [facility] from [facility] on 10/18 after syncopal episode and seizure activity following. He did require intubation for airway protection. Diagnostic workup thus far benign. Cardiology was asked to see for bradycardia, HR 40s-50s. Patient extubated on 10/21. 2016: Patient remains in ICU this morning. Post extubation yesterday, patient with some initial confusion and verbal aggression. No acute respiratory distress, and he is not using supplemental oxygen this morning. He is resting comfortably , and he is cooperative and pleasant. Denies dyspnea or pain. Spoke with him regarding bradycardia. He does have have some slight confusion at times, but reports his heart rate normally runs slow, that it is due to taking Coreg, and that he has been educated on this in the past by his primary psychiatric nursing aide. Reports he does have some chest "soreness" now and then when he takes in a deep breath. Sinus rhythm this morning with HR in 60s, and tele review shows mild bradycardia still 40s-50s at times. SBP 160-175 mmHg. Creatinine improved this morning, 1.8 (appears to be baseline). Hypokalemia, 3.4. During my exam I observe the patient to use his right arm to move his left arm. It was elucidated that since he has been extubated he recognizes he does not have strength to move his left arm or leg. Previously this had been his "power side" he has had some ongoing chronic weakness of his right side. ASSESSMENT/PLAN: 1. BRADYCARDIA - although patient does have some slight confusion at times, he appears to be aware of chronic bradycardia. Denies symptomatic bradycardia at this time. Review of clinic records and chart indicates this is most likely a chronic finding, and is not significantly worsened this admission. Continuing to hold beta jossie and other rate reducing agents. TSH 0.065 this admit. CTNI level peaked at 0.053. EKG remained stable. 2. HYPERTENSION - SBP elevated 160-175 range today with. Will begin resuming antihypertensives. 3. CAD - History of PCI greater than 4 years ago. At last clinic visit with Dr. Ribeiro in June, patient had no anginal complaint. Patient has had no clinical findings at this time for ACS. Continue low dose ASA. 4. TOBACCO USE - Greater than 5 minutes spent discussing the need for tobacco cessation. 5. CHRONIC KIDNEY DISEASE - Avoid nephrotoxic agents as able. Nephrology is also following patient this admission. Creatinine much improved and is 1.8 today. Keppra dose has been adjusted. Lovenox has been adjusted to renal dosing. He received gentle IVF hydration. 6 SYNCOPE / SEIZURE - Diagnostic workup for etiology thus far benign. No history of previous seizures. Dr. De Paz has evaluated. EEG with mild generalized slowing but no seizure activity. 7. HYPOKALEMIA- improved with some mild hypokalemia, 3.4 today. Continue to replete KCl per IV PRN protocol. Follow up BMP in the morning. I discussed the new findings of left-sided weakness with Dr. De Paz. Initially an MRI was considered, however the patient does have a spinal cord stimulator prohibiting this. Further workup will be per neurology. Exam (Progress Note) - Constitutional Vitals: Period Temp Pulse Resp BP Sys/Mckinney Pulse Ox Last 24 Hr 97.9 F-98.5 F 41-89 10-24 122-175/70-99 96-100 Exam: General appearance: normal weight, no acute distress. somewhat confused at times , but pleasant and cooperative - Head Head exam: Present: normocephalic, atraumatic,. Absent: hematoma, laceration - Eye Eye exam: Absent: conjunctival injection, nystagmus, periorbital swelling, scleral icterus, laceration to eyelids Pupils: Present: LISSETTE. Absent: constricted, dilated, fixed, irregular, unequal - ENT ENT exam: Present: normal exam, normal external ear exam. - Neck Neck exam: Present: normal inspection. Absent: lymphadenopathy, meningismus, tenderness, thyromegaly - Respiratory Respiratory exam: Present: clear to auscultation bilaterally anteriorly. Absent : accessory muscle use, chest wall tenderness, rhonchi, wheeze. - Cardiovascular Cardiovascular exam: Present: regular rate and regular rhythm, mild bradycardia at times. Absent: carotid bruit, gallop, JVD, rubs, murmur - GI/Abdominal GI/Abdominal exam: Present: normal bowel sounds, soft. Absent: distended, firm , guarding, hernia, mass, tenderness, rebound - Extremities Exam Extremities exam: Present: normal inspection, normal capillary refill. Absent: calf tenderness, edema - Back Exam Back exam: normal back exam. no tenderness. - Neurological Exam Neurological exam: able to follow commands, left hand squeeze but does not lift left arm. unable to move left lower ext. alert, oriented x 2 but with some mild confusion. reoriented to time. The right side upper and lower extremity also have mild weakness. No essential tremor. - Psychiatric Psychiatric exam: Normal mood. Patient does not appear to be anxious or depressed. - Skin Skin exam: Present: normal color, warm, dry, intact. Absent: cyanosis, diaphoretic, rash, urticaria, suspicious lesion Result/EKG - Labs CBC & BMP: 10/21/16 05:04 10/22/16 02:25 Lab Results: I have reviewed the past 24 hour labs Labs: Laboratory Results - last 24 hr 10/21/16 10/22/16 10/22/16 12:25 02:15 02:25 ABG pH 7.402 ABG pCO2 31.7 L ABG pO2 133.0 H ABG HCO3 21.0 ABG Total CO2 17.8 L ABG O2 Saturation 99.0 ABG Base Excess -4.2 L Sodium 145 Potassium 3.4 L Chloride 114 H Carbon Dioxide 23 Anion Gap 11.4 BUN 49 H D Creatinine 1.80 H GFR Calculation 44 BUN/Creatinine Ratio 27.00 H Glucose 128 H POC Glucose 139 H Calculated Osmolality 302.7 Calcium 9.2 Magnesium 2.3 - Diagnostic Findings Procedure: Chest x-ray: image reviewed by me, report reviewed by me - EKG EKG results: interpreted by me, no acute changes EKG shows: sinus rhythm (pulse rate 50s-60s) I, Ania Lee MD, personally performed the services described in this documentation, ascribed by Jennifer Holloway RN in my presence, and it is both accurate and complete .
[2016-10-22] MEDS: SODIUM BICARBONATE 650 MG TABLET PO SCH (22:06)
[2016-10-22] MEDS: POTASSIUM PHOS/SOD PHOS 250 MG TABLET PO SCH (22:07)
[2016-10-22] MEDS: ENOXAPARIN 40 MG/0.4 ML SYRINGE SUBCUT SCH (22:08)
[2016-10-23 06:04] LABS: Calcium 8.9 MG/DL (8.5-10.1); Magnesium 1.9 MG/DL (1.8-2.4); Osmolality,Calculated 289.8 MOS/KG (273-304); Potassium 3.9 MMOL/L (3.5-5.1)
[2016-10-23] MEDS: SODIUM BICARBONATE 650 MG TABLET PO SCH ×2 (08:26→21:45)
[2016-10-23] MEDS: MYCOPHENOLATE MOFETIL 250 MG CAPSULE PO SCH ×2 (08:27→21:45)
[2016-10-23] MEDS: ASPIRIN 325 MG TABLET PO SCH (08:28)
[2016-10-23] MEDS: CHOLECALCIFEROL 1,000 UNIT TABLET PO SCH (08:28)
[2016-10-23] MEDS: CEFUROXIME 250 MG TABLET PO SCH ×2 (08:28→21:45)
[2016-10-23] MEDS: POTASSIUM PHOS/SOD PHOS 250 MG TABLET PO SCH ×2 (08:28→21:45)
[2016-10-23] MEDS: FAMOTIDINE 20 MG TABLET PO SCH (08:29)
[2016-10-23] MEDS: LUBIPROSTONE 24 MCG CAPSULE PO SCH (08:29)
[2016-10-23] MEDS: CARVEDILOL 25 MG TABLET PO SCH (08:29)
[2016-10-23] MEDS: predniSONE 5 MG TABLET PO SCH (08:29)
--- NOTE | 2016-10-23 08:31 | Nephrology Progress Note ---
Nephrology - PN: Subj Interval history: Patient is resting on the ventilator but is awake. Serum creatinine is noted to be 2.2. At this time Keppra has been adjusted. 10/20/2016. The patient remains ventilated. He is resting comfortably and will awaken easily. The patient tries to say that he is thirsty through the ET tube. No acute changes. Serum creatinine is 2.6 today. No fevers or chills. 10/21/2016. The patient remains ventilated is awake this morning. Plans for extubation sometime today. Serum creatinine is noted to be 2.6. Started on IV fluids last night. 10/22/2016. The patient is now extubated. He continues to do well. Still feels weak on his left side. Serum creatinine is now 1.8. IV fluids have been stopped. Continue to encourage patient with p.o. fluid intake. 10/23/2006. The patient is resting. Serum creatinine is noted be 1.3. Patient only has been emotionally distressed in the last 24 hours after being extubated dealing with this hypotensive episodes and adjusting to his recovery process. Continuing to encourage the patient. Exam (PN)-Nephrology - Vital Signs Vital signs: Period Temp Pulse Resp BP Sys/Mckinney Pulse Ox Last 24 Hr 97.1 F-98.4 F 47-60 18-20 121-167/48-91 96-97 - General Appearance General appearance: well-developed, well-nourished EENT: ATNC Neck: supple Respiratory: clear Cardiology: no edema, regular rate, regular rhythm Gastrointestinal: normoactive bowel sounds, no tenderness Integumentary: no rash Neurologic: alert and oriented x3 Musculoskeletal: no deformities, no clubbing Psychiatric: mood/affect appropriate (Still is emotional this morning as he is realized how sick he has been and is recovering.), cooperative - Lab 10/21/16 05:04 10/23/16 04:23 Most recent lab results ABG pH 7.402 (7.35-7.45) 10/21/16 12:25 ABG pCO2 31.7 MM HG (35-48) L 10/21/16 12:25 ABG pO2 133.0 MM HG (80-95) H 10/21/16 12:25 ABG HCO3 21.0 MMOL/L (20-26) 10/21/16 12:25 ABG O2 Saturation 99.0 % (95-100) 10/21/16 12:25 Calcium 8.9 MG/DL (8.5-10.1) 10/23/16 04:23 Phosphorus 3.6 MG/DL (2.5-4.9) 10/18/16 16:27 Magnesium 1.9 MG/DL (1.8-2.4) 10/23/16 04:23 Assessment and Plan (1) History of renal transplant Status: Chronic Assessment and plan: Renal function is stable. Current Visit: No (2) Seizures Status: Acute Assessment and plan: Now on Keppra 3 times a day. Current Visit: Yes (3) Altered mental status Status: Acute Current Visit: Yes (4) Bradycardia Status: Chronic Current Visit: Yes
[2016-10-23] MEDS: levETIRAcetam 500 MG TABLET PO SCH ×2 (08:41→21:45)
[2016-10-23] MEDS: TACROLIMUS 0.5 MG CAPSULE PO SCH ×2 (08:41→22:30)
[2016-10-23] MEDS: HYDROCORTISONE 100 MG VIAL IV SCH (09:39)
--- NOTE | 2016-10-23 11:55 | EKG Report ---
Stationary ECG Study [facility] Test Date: 10/23/2016 11:55:28 AM Pat Name: JUSTIN CULVER Department: Room: 218 Gender: M Case Resource Manager: ANITA : 1955 Requested by: Alexia Fu Order Number: [id number] Reading MD: JAMES RAMOS Intervals [place] Rate: 63 P: 70 W[place]: 156 QRS: 11 QRSD: 101 T: -18 QT: 447 QTc: 455 Interpretive Statements SINUS RHYTHM NONSPECIFIC T-WAVE ABNORMALITY Electronically Signed On 10-23-16 12:35:28 CDT by JAMES RAMOS [email or web address]
--- NOTE | 2016-10-23 12:41 | CT Report ---
History: Mental status change Date: 10/23/2016 Study: CT head without contrast Comparison exam: October 19, [address] sections were obtained through the head without IV contrast. The ventricles are midline in position without evidence of hydrocephalus. There is no mass or parenchymal hemorrhage. There is no gross CT evidence of acute cortical stroke. There is no extra-axial hematoma. The partially visualized paranasal sinuses and mastoid air cells are clear. Impression: No acute intracranial process. No significant interval change from the previous study. This CT exam was performed using one or more the following dose reduction techniques: Automated exposure control, adjustment of the MA and/or KV according to patient size, or use of iterative reconstruction technique. PROCEDURE INTERPRETED AT [facility] DEPARTMENT OF RADIOLOGY Final Report Signed by: Dr. Alva Desai
[2016-10-23 13:06] LABS: Troponin I Only 0.083 NG/ML (0.00-0.045)
--- NOTE | 2016-10-23 14:00 | Neurology Progress Note ---
Neurology - PN : Subjective Interval history: Seems to be doing better neurologically. No new problems reported. CT scan of the head is unremarkable. Get MRI because of the neuro stimulator Exam (Progress Note) - Constitutional Vitals: Period Temp Pulse Resp BP Sys/Mckinney Pulse Ox Last 24 Hr 97.1 F-98.6 F 47-65 15-20 100-139/48-79 96-97 Exam: GENERAL: Patient is in no acute distress. NECK: Neck is supple. There is no JVD. No carotid bruits present. No thyroid masses. CVS: First and second heart sounds are normal. There is no S3 present. Regular rate and rhythm. RESPIRATORY: Lungs are clear to auscultation without any rales or rhonchi. ABDOMEN: Soft and non-tender. Bowel sounds are present. There is no hepatosplenomegaly. EXT: There is no palpable edema. Peripheral pulses are present. Skin: No rashes Central Nervous system: General: Alert, awake Speech: Fluent Comprehension: Fair Facial expressions: Normal Cranial Nerves: Pupils are equally reactive to light. Doll's head I movements are positive. No facial asymmetry is seen. Motor: Bulk and Tone is normal. Strength: moving all 4 extremities and following commands Reflexes: 1+ and symmetrical Cerebellar function: Not tested Toes: Equivocal Gait: Not tested Results - Labs CBC & BMP: 10/21/16 05:04 10/23/16 04:23 Assessment and Plan (1) Seizures Status: Acute Assessment and plan: Agree with Keppra 500 p.o. twice daily No further intervention from neuro standpoint Sign off please call please call as needed Current Visit: Yes
--- NOTE | 2016-10-23 18:28 | Hospitalist Progress Note ---
Assessment and Plan (1) Acute on chronic renal insufficiency Status: Acute Assessment and plan: The patient's chronic kidney disease stage III has a usual 1.8 mg/dL creatinine baseline, and the patient appears to be back to baseline. Liquid stools are improved off Zosyn. The patient continues on oral Keppra and has had no further spells. When the patient is fully oriented he will be ready for discharge home. Current Visit: No (2) History of renal transplant Status: Chronic Current Visit: No Hospitalist: Subjective Interval history: The patient is improving his emotional and psychological performance. The patient has no further delirium. The patient's previous expressive aphasia is more compensated than in the last few days. The patient's thought processes are rational. Exam - Constitutional Vitals: Period Temp Pulse Resp BP Sys/Mckinney Pulse Ox Last 24 Hr 97.8 F-98.6 F 47-65 15-20 100-139/55-79 96-98 Exam: Constitutional System: No distress. No tremulousness. Head: Normocephalic, atraumatic. Ears, Nose and Throat System: No evidence of Otitis or Mastoiditis. No epistaxis or discharge Eyes System: Pupils equal, round, and reactive. Extraocular muscles intact. Neck: Supple, without adenopathy, No jugular venous distention. No thyromegaly , neck mass, or prior surgery apparent. Respiratory System: Chest clear to auscultation. Cardiovascular System: Heart with regular rate and rhythm. No murmur. GI System: Abdomen soft, nontender. Hypo-active bowel sounds present. There is a transplanted kidney in the right suprapubic area Musculoskeletal System: limbs with no pedal edema. Full distal pulses. Results - Labs CBC & BMP: 10/21/16 05:04 10/23/16 04:23 Lab Results: I have reviewed the past 24 hour labs
--- NOTE | 2016-10-23 19:27 | Cardiology Progress Note ---
Assessment and Plan (1) Bradycardia Status: Chronic Assessment and plan: SEE PLAN OF CARE LISTED BELOW. Current Visit: Yes (2) History of coronary artery disease Status: Chronic Assessment and plan: SEE PLAN OF CARE LISTED BELOW. Current Visit: Yes (3) History of renal transplant Status: Chronic Assessment and plan: SEE PLAN OF CARE LISTED BELOW. Current Visit: No (4) Hypertension Status: Chronic Assessment and plan: SEE PLAN OF CARE LISTED BELOW. Current Visit: Yes (5) Hyperlipidemia Status: Chronic Assessment and plan: SEE PLAN OF CARE LISTED BELOW. Current Visit: Yes (6) History of hyperglycemia Status: Chronic Assessment and plan: SEE PLAN OF CARE LISTED BELOW. Current Visit: Yes (7) Tobacco use Status: Chronic Assessment and plan: SEE PLAN OF CARE LISTED BELOW. Current Visit: Yes (8) Acute on chronic renal failure Status: Chronic Assessment and plan: SEE PLAN OF CARE LISTED BELOW. Current Visit: Yes (9) Hypokalemia Status: Acute Assessment and plan: SEE PLAN OF CARE LISTED ABOVE. Current Visit: No Cardiology - PN: Subj Interval history: PRIMARY COAL AND ASH SUPERVISOR: DR. 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 Ramey. Status post non-Q [place] with stent to mid circumflex in 2012. He also has chronic back pain with previous lumbar nerve stimulator and back surgery. Other history includes squamous cell carcinoma now status post surgical removal and radiation last echo in 12/2015 with preserved LV systolic function, EF 50-55 %, mild diastolic dysfunction and aortic insufficiency. Myocardial perfusion study at the time negative for ischemia. Patient was admitted [facility] from [facility] on 10/18 after syncopal episode and seizure activity following. He did require intubation for airway protection. Diagnostic workup thus far benign. Cardiology was asked to see for bradycardia, HR 40s-50s. Patient extubated on 10/21. 2016: The patient has been transferred to the telemetry floor. Nursing and the patient reported "episode" earlier today where the patient acutely felt unwell and as if he was going to pass out. It seems he did not lose consciousness. He did not experience any chest discomfort, palpitations or shortness of breath with this episode. The nurse I spoke with is unclear what is vitals were at the time of this episode. Cardiac biomarkers and EKG were cycled and overall these are unchanged in any significant way from his baseline. The patient now feels well again. I have reviewed his vitals, he does have some slow heart rates in the 40s and is currently not on telemetry, although other heart rates are higher. I spent a considerable amount of time trying to check the chart and determine what the course of his beta-jossie administration has been. He had been on Coreg 25 twice daily and at some point this was discontinued during his hospitalization for bradycardia. He is now back on 25 mg twice daily and I believe he received 2 doses yesterday, and 1 this morning. Yesterday when I assessed the patient he seemed somewhat hemiplegic on the left side and this was a new finding. He has recovered strength on that side. ASSESSMENT/PLAN: 1. BRADYCARDIA -I am going to decrease his Coreg to 12.5 mg and put him back on telemetry monitoring. 2. HYPERTENSION -chronic, stable. 3. CAD - History of PCI greater than 4 years ago. At last clinic visit with Dr. Ribeiro in June, patient had no anginal complaint. Patient has had no clinical findings at this time for ACS. Continue low dose ASA. We will cycle his cardiac biomarkers to make sure there is not a peak in his troponin since it is mildly elevated, slightly higher than it was prior. 4. TOBACCO USE -the merits of tobacco cessation have been addressed. 5. CHRONIC KIDNEY DISEASE - Avoid nephrotoxic agents as able. Nephrology is also following patient this admission. Creatinine much improved and is 1.8 today. Keppra dose has been adjusted. Lovenox has been adjusted to renal dosing. He received gentle IVF hydration. 6 SYNCOPE / SEIZURE - Diagnostic workup for etiology thus far benign. No history of previous seizures. Dr. De Paz has evaluated. EEG with mild generalized slowing but no seizure activity. He has had some recurrent presyncope. I am going to check a Prograf level and put him on telemetry monitoring so that we can observe what is occurring when he has the symptoms. I have asked the nurse to call pharmacy to determine the timing of checking that Prograf level. Exam (Progress Note) - Constitutional Vitals: Period Temp Pulse Resp BP Sys/Mckinney Pulse Ox Last 24 Hr 97.8 F-98.6 F 47-65 15-20 100-139/55-79 96-98 Exam: General appearance: normal weight, no acute distress. somewhat confused at times , but pleasant and cooperative - Head Head exam: Present: normocephalic, atraumatic. Absent: hematoma, laceration - Eye Eye exam: Absent: conjunctival injection, nystagmus, periorbital swelling, scleral icterus, laceration to eyelids Pupils: Present: LISSETTE. Absent: constricted, dilated, fixed, irregular, unequal - ENT ENT exam: Present: normal exam, normal external ear exam. - Neck Neck exam: Present: normal inspection. Absent: lymphadenopathy, meningismus, tenderness, thyromegaly - Respiratory Respiratory exam: Present: clear to auscultation bilaterally anteriorly. Absent : accessory muscle use, chest wall tenderness, rhonchi, wheeze. - Cardiovascular Cardiovascular exam: Present: regular rate and regular rhythm. Absent: carotid bruit, gallop, JVD, rubs, murmur - GI/Abdominal GI/Abdominal exam: Present: normal bowel sounds, soft. Absent: distended, firm , guarding, hernia, mass, tenderness, rebound - Extremities Exam Extremities exam: Present: normal inspection, normal capillary refill. Absent: calf tenderness, edema - Back Exam Back exam: normal back exam. no tenderness. - Neurological Exam Neurological exam: He is now able to move his left side equal to his right. No essential tremor. - Psychiatric Psychiatric exam: Normal mood. Patient does not appear to be anxious or depressed. - Skin Skin exam: Present: normal color, warm, dry, intact. Absent: cyanosis, diaphoretic, rash, urticaria, suspicious lesion Result/EKG - Labs CBC & BMP: 10/21/16 05:04 10/23/16 04:23 Lab Results: I have reviewed the past 24 hour labs Labs: Laboratory Results - last 24 hr 10/23/16 10/23/16 04:23 12:12 Sodium 144 Potassium 3.9 Chloride 111 H Carbon Dioxide 25 Anion Gap 11.9 BUN 26 H Creatinine 1.30 GFR Calculation 70 BUN/Creatinine Ratio 20.00 Glucose 88 Calculated Osmolality 289.8 Calcium 8.9 Magnesium 1.9 Total Creatine Kinase 55 CK-MB (CK-2) 1.5 Troponin I 0.083 H - Diagnostic Findings Procedure: CT: report reviewed by me - EKG EKG results: interpreted by me, sinus rhythm, no acute changes
[2016-10-23 20:09] LABS: Troponin I Only 0.072 NG/ML (0.00-0.045)
[2016-10-23] MEDS: ENOXAPARIN 40 MG/0.4 ML SYRINGE SUBCUT SCH (21:46)
[2016-10-23] MEDS: CARVEDILOL 12.5 MG TABLET PO SCH (21:46)
[2016-10-24 04:34] LABS: Eosinophils # 0.1 10*3/uL (0.0-0.87); Hematocrit 29.2 VOL% (42.0-52.0); Hemoglobin 10.2 GM/DL (14.0-18.0); Immature Granulocytes % 0.4 %; Immature Granulocytes Absolute 0.02 #; Lymphocytes # 1.4 10*3/uL (1.4-4.0); Lymphocytes % 28.7 % (21.2-54.2); Mean Corpuscular HGB Conc 34.9 GM/DL (32-36); Mean Corpuscular Hemoglobin 31 PG (27-34); Mean Corpuscular Volume 88.5 FL (87-102); Mean Platelet Volume 9.6 FL (9.6-12.0); Monocytes # 0.7 10*3/uL (0.11-0.8); Monocytes % 14.6 % (1.7-12.7); Neutrophils # 2.6 10*3/uL (1.4-7.4); Neutrophils % 55.3 % (38.7-73.9); Platelet Count 150 T/CUMM (130-400); Red Cell Distribution Width 12.7 % (9.3-17.3); White Blood Count 4.8 T/CUMM (4-12)
[2016-10-24 05:24] LABS: Troponin I Only 0.085 NG/ML (0.00-0.045)
[2016-10-24 05:48] LABS: Calcium 8.5 MG/DL (8.5-10.1); Magnesium 1.9 MG/DL (1.8-2.4); Osmolality,Calculated 289.7 MOS/KG (273-304); Potassium 3.1 MMOL/L (3.5-5.1)
[2016-10-24] MEDS: CHOLECALCIFEROL 1,000 UNIT TABLET PO SCH (08:49)
[2016-10-24] MEDS: FAMOTIDINE 20 MG TABLET PO SCH (08:50)
[2016-10-24] MEDS: CEFUROXIME 250 MG TABLET PO SCH ×2 (08:51→21:33)
[2016-10-24] MEDS: ASPIRIN 325 MG TABLET PO SCH (08:51)
[2016-10-24] MEDS: LUBIPROSTONE 24 MCG CAPSULE PO SCH (08:51)
[2016-10-24] MEDS: CARVEDILOL 12.5 MG TABLET PO SCH ×2 (08:52→21:33)
[2016-10-24] MEDS: SODIUM BICARBONATE 650 MG TABLET PO SCH ×2 (08:52→21:33)
[2016-10-24] MEDS: POTASSIUM PHOS/SOD PHOS 250 MG TABLET PO SCH ×2 (08:52→21:32)
[2016-10-24] MEDS: predniSONE 5 MG TABLET PO SCH (08:53)
[2016-10-24] MEDS: POTASSIUM CHLORIDE 20 MEQ TABLET PO SCH ×4 (08:53→21:34)
[2016-10-24] MEDS: levETIRAcetam 500 MG TABLET PO SCH ×2 (08:53→21:32)
[2016-10-24] MEDS: HYDROCORTISONE 100 MG VIAL IV SCH (08:57)
[2016-10-24] MEDS: MYCOPHENOLATE MOFETIL 250 MG CAPSULE PO SCH ×2 (09:00→21:34)
[2016-10-24] MEDS: TACROLIMUS 0.5 MG CAPSULE PO SCH ×2 (09:28→21:33)
--- NOTE | 2016-10-24 10:34 | Hospitalist Progress Note ---
Assessment and Plan (1) Acute on chronic renal insufficiency Status: Acute Assessment and plan: The patient's chronic kidney disease stage III has a usual 1.8 mg/dL creatinine baseline, and the patient appears to be back to baseline. Liquid stools are improved off Zosyn. The patient continues on oral Keppra and has fewer spells since starting Keppra. The patient's heart rate has been variable and cardiac monitoring has been restarted. We will continue observation to see if the patient's confusion episodes correlate with arrhythmias. Current Visit: No (2) History of renal transplant Status: Chronic Current Visit: No Hospitalist: Subjective Interval history: Mr. Claudio continues with episodes of inattention and confusion. The patient has not had any syncope in the last 24 hours. The patient heart rate has been variable. Exam - Constitutional Vitals: Period Temp Pulse Resp BP Sys/Mckinney Pulse Ox Last 24 Hr 97.7 F-98.2 F 52-73 15-20 100-162/55-86 94-98 Exam: Constitutional System: No distress. No tremulousness. Head: Normocephalic, atraumatic. Ears, Nose and Throat System: No evidence of Otitis or Mastoiditis. No epistaxis or discharge Eyes System: Pupils equal, round, and reactive. Extraocular muscles intact. Neck: Supple, without adenopathy, No jugular venous distention. No thyromegaly , neck mass, or prior surgery apparent. Respiratory System: Chest clear to auscultation. Cardiovascular System: Heart with regular rate and rhythm. No murmur. GI System: Abdomen soft, nontender. Hypo-active bowel sounds present. There is a transplanted kidney in the right suprapubic area Musculoskeletal System: limbs with no pedal edema. Full distal pulses. Results - Labs CBC & BMP: 10/24/16 02:46 10/24/16 02:46 Lab Results: I have reviewed the past 24 hour labs Specialty Discharge - Follow Up or Referrals
--- NOTE | 2016-10-24 11:18 | Nephrology Progress Note ---
Nephrology - PN: Subj Interval history: Patient is resting on the ventilator but is awake. Serum creatinine is noted to be 2.2. At this time Keppra has been adjusted. 10/20/2016. The patient remains ventilated. He is resting comfortably and will awaken easily. The patient tries to say that he is thirsty through the ET tube. No acute changes. Serum creatinine is 2.6 today. No fevers or chills. 10/21/2016. The patient remains ventilated is awake this morning. Plans for extubation sometime today. Serum creatinine is noted to be 2.6. Started on IV fluids last night. 10/22/2016. The patient is now extubated. He continues to do well. Still feels weak on his left side. Serum creatinine is now 1.8. IV fluids have been stopped. Continue to encourage patient with p.o. fluid intake. 10/23/2016. The patient is resting. Serum creatinine is noted be 1.3. Patient only has been emotionally distressed in the last 24 hours after being extubated dealing with this hypotensive episodes and adjusting to his recovery process. Continuing to encourage the patient. 10/24/2016. Patient is resting comfortably. Did have a headache earlier. Has been able to sit up with family today. Serum creatinine is noted be 1.0. Serum potassium is 3.1 we will supplement today with 40 mEq potassium today. Exam (PN)-Nephrology - Vital Signs Vital signs: Period Temp Pulse Resp BP Sys/Mckinney Pulse Ox Last 24 Hr 97.7 F-98.2 F 52-73 15-20 100-162/55-86 94-98 - General Appearance General appearance: well-developed, well-nourished EENT: ATNC Neck: supple Respiratory: clear Cardiology: regular rate, regular rhythm Gastrointestinal: normoactive bowel sounds Neurologic: alert and oriented x3 Musculoskeletal: no deformities, no clubbing Psychiatric: mood/affect appropriate, cooperative - Lab 10/24/16 02:46 10/24/16 02:46 Most recent lab results ABG pH 7.402 (7.35-7.45) 10/21/16 12:25 ABG pCO2 31.7 MM HG (35-48) L 10/21/16 12:25 ABG pO2 133.0 MM HG (80-95) H 10/21/16 12:25 ABG HCO3 21.0 MMOL/L (20-26) 10/21/16 12:25 ABG O2 Saturation 99.0 % (95-100) 10/21/16 12:25 Calcium 8.5 MG/DL (8.5-10.1) 10/24/16 02:46 Phosphorus 3.6 MG/DL (2.5-4.9) 10/18/16 16:27 Magnesium 1.9 MG/DL (1.8-2.4) 10/24/16 02:46 Assessment and Plan (1) History of renal transplant Status: Chronic Assessment and plan: Renal function is stable. Current Visit: No (2) Seizures Status: Acute Assessment and plan: Now on Keppra 3 times a day. Current Visit: Yes (3) Altered mental status Status: Acute Current Visit: Yes (4) Bradycardia Status: Chronic Current Visit: Yes (5) Hypokalemia Status: Acute Assessment and plan: 40 mEq potassium today. Current Visit: No Specialty Discharge - Follow Up or Referrals
[2016-10-24] MEDS: ACETAMINOPHEN 325 MG TABLET PO PRN ×2 (11:35→21:34)
--- NOTE | 2016-10-24 14:35 | Cardiology Progress Note ---
Assessment and Plan (1) Bradycardia Status: Chronic Assessment and plan: SEE PLAN OF CARE LISTED BELOW. Current Visit: Yes (2) History of coronary artery disease Status: Chronic Assessment and plan: SEE PLAN OF CARE LISTED BELOW. Current Visit: Yes (3) History of renal transplant Status: Chronic Assessment and plan: SEE PLAN OF CARE LISTED BELOW. Current Visit: No (4) Hypertension Status: Chronic Assessment and plan: SEE PLAN OF CARE LISTED BELOW. Current Visit: Yes (5) Hyperlipidemia Status: Chronic Assessment and plan: SEE PLAN OF CARE LISTED BELOW. Current Visit: Yes (6) History of hyperglycemia Status: Chronic Assessment and plan: SEE PLAN OF CARE LISTED BELOW. Current Visit: Yes (7) Tobacco use Status: Chronic Assessment and plan: SEE PLAN OF CARE LISTED BELOW. Current Visit: Yes (8) Acute on chronic renal failure Status: Chronic Assessment and plan: SEE PLAN OF CARE LISTED BELOW. Current Visit: Yes (9) Hypokalemia Status: Acute Assessment and plan: SEE PLAN OF CARE LISTED ABOVE. 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 Ramey. Status post non-Q MT with stent to mid circumflex in 2012. He also has chronic back pain with previous lumbar nerve stimulator and back surgery. Other history includes squamous cell carcinoma now status post surgical removal and radiation last echo in 12/2015 with preserved LV systolic function, EF 50-55 %, mild diastolic dysfunction and aortic insufficiency. Myocardial perfusion study at the time negative for ischemia. Patient was admitted [facility] on 10/18 after syncopal episode and seizure activity following. He did require intubation for airway protection. Diagnostic workup thus far benign. Cardiology was asked to see for bradycardia, HR 40s-50s. Patient extubated on 10/21. 2016: The patient has been transferred to the telemetry floor. Nursing and the patient reported "episode" earlier today where the patient acutely felt unwell and as if he was going to pass out. It seems he did not lose consciousness. He did not experience any chest discomfort, palpitations or shortness of breath with this episode. The nurse I spoke with is unclear what is vitals were at the time of this episode. Cardiac biomarkers and EKG were cycled and overall these are unchanged in any significant way from his baseline. The patient now feels well again. I have reviewed his vitals, he does have some slow heart rates in the 40s and is currently not on telemetry, although other heart rates are higher. I spent a considerable amount of time trying to check the chart and determine what the course of his beta-jossie administration has been. He had been on Coreg 25 twice daily and at some point this was discontinued during his hospitalization for bradycardia. He is now back on 25 mg twice daily and I believe he received 2 doses yesterday, and 1 this morning. Yesterday when I assessed the patient he seemed somewhat hemiplegic on the left side and this was a new finding. He has recovered strength on that side. October 24, 2016: ASSESSMENT/PLAN: 1. BRADYCARDIA -we have decreased his Coreg and will monitor his hemodynamics today. 2. HYPERTENSION -chronic, stable. 3. CAD - History of PCI greater than 4 years ago. At last clinic visit with Dr. Ribeiro in June, patient had no anginal complaint. Patient has had no clinical findings at this time for ACS. Continue low dose ASA. Troponin is mildly elevated but has stayed in a plateaued pattern. 4. TOBACCO USE -the merits of tobacco cessation have been addressed. 5. CHRONIC KIDNEY DISEASE -creatinine has improved from 1.8 down to 1. His medications will need to be readjusted accordingly. 6 SYNCOPE / SEIZURE - Diagnostic workup for etiology thus far benign. No history of previous seizures. Dr. De Paz has evaluated. EEG with mild generalized slowing but no seizure activity. He has had some recurrent presyncope. I am awaiting the Prograf level. Telemetry monitoring has been resumed so that we can observe what is occurring when he has the symptoms. I have asked the nurse to call pharmacy to determine the timing of checking that Prograf level. Exam (Progress Note) - Constitutional Vitals: Period Temp Pulse Resp BP Sys/Mckinney Pulse Ox Last 24 Hr 97.7 F-98.2 F 52-73 16-20 112-162/57-86 90-98 Exam: General appearance: normal weight, no acute distress. somewhat confused at times , but pleasant and cooperative - Head Head exam: Present: normocephalic, atraumatic. Absent: hematoma, laceration - Eye Eye exam: Absent: conjunctival injection, nystagmus, periorbital swelling, scleral icterus, laceration to eyelids Pupils: Present: LISSETTE. Absent: constricted, dilated, fixed, irregular, unequal - ENT ENT exam: Present: normal exam, normal external ear exam. - Neck Neck exam: Present: normal inspection. Absent: lymphadenopathy, meningismus, tenderness, thyromegaly - Respiratory Respiratory exam: Present: clear to auscultation bilaterally anteriorly. Absent : accessory muscle use, chest wall tenderness, rhonchi, wheeze. - Cardiovascular Cardiovascular exam: Present: regular rate and regular rhythm. Absent: carotid bruit, gallop, JVD, rubs, murmur - GI/Abdominal GI/Abdominal exam: Present: normal bowel sounds, soft. Absent: distended, firm , guarding, hernia, mass, tenderness, rebound - Extremities Exam Extremities exam: Present: normal inspection, normal capillary refill. Absent: calf tenderness, edema - Back Exam Back exam: normal back exam. no tenderness. - Neurological Exam Neurological exam: He is now able to move his left side equal to his right. No essential tremor. - Psychiatric Psychiatric exam: Normal mood. Patient does not appear to be anxious or depressed. - Skin Skin exam: Present: normal color, warm, dry, intact. Absent: cyanosis, diaphoretic, rash, urticaria, suspicious lesion Result/EKG - Labs CBC & BMP: 10/24/16 02:46 10/24/16 02:46 Lab Results: I have reviewed the past 24 hour labs Labs: Laboratory Results - last 24 hr 10/23/16 10/24/16 10/24/16 19:39 02:46 02:46 WBC 4.8 D RBC 3.30 L Hgb 10.2 L Hct 29.2 L MCV 88.5 MCH 31 MCHC 34.9 RDW 12.7 Plt Count 150 D MPV 9.6 Neut % (Auto) 55.3 Lymph % (Auto) 28.7 Rice % (Auto) 14.6 H Eos % (Auto) 1.0 Baso % (Auto) 0.0 Neut # (Auto) 2.6 Lymph # (Auto) 1.4 Rice # (Auto) 0.7 Eos # (Auto) 0.1 Baso # (Auto) 0.0 Immature Gran % 0.4 Nucleated RBC % 0.0 Immature Gran # 0.02 Nucleated RBCs # 0.00 Immature Plt Fraction 0.0 Sodium Potassium Chloride Carbon Dioxide Anion Gap BUN Creatinine GFR Calculation BUN/Creatinine Ratio Glucose Calculated Osmolality Calcium Magnesium Total Creatine Kinase 55 46 CK-MB (CK-2) 1.6 1.2 Troponin I 0.072 H 0.085 H 10/24/16 02:46 WBC RBC Hgb Hct MCV MCH MCHC RDW Plt Count MPV Neut % (Auto) Lymph % (Auto) Rice % (Auto) Eos % (Auto) Baso % (Auto) Neut # (Auto) Lymph # (Auto) Rice # (Auto) Eos # (Auto) Baso # (Auto) Immature Gran % Nucleated RBC % Immature Gran # Nucleated RBCs # Immature Plt Fraction Sodium 145 Potassium 3.1 L Chloride 110 H Carbon Dioxide 26 Anion Gap 12.1 BUN 22 H Creatinine 1.00 GFR Calculation 87 BUN/Creatinine Ratio 22.00 H Glucose 86 Calculated Osmolality 289.7 Calcium 8.5 Magnesium 1.9 Total Creatine Kinase CK-MB (CK-2) Troponin I Specialty Discharge - Follow Up or Referrals
[2016-10-24] MEDS: ENOXAPARIN 40 MG/0.4 ML SYRINGE SUBCUT SCH (21:34)
[2016-10-25 06:32] LABS: Eosinophils # 0.1 10*3/uL (0.0-0.87); Eosinophils % 1.8 % (0.00-10.9); Hematocrit 29.1 VOL% (42.0-52.0); Hemoglobin 10.1 GM/DL (14.0-18.0); Immature Granulocytes % 0.4 %; Immature Granulocytes Absolute 0.02 #; Lymphocytes # 1.7 10*3/uL (1.4-4.0); Lymphocytes % 35.3 % (21.2-54.2); Mean Corpuscular HGB Conc 34.7 GM/DL (32-36); Mean Corpuscular Hemoglobin 31 PG (27-34); Monocytes # 0.5 10*3/uL (0.11-0.8); Monocytes % 10.3 % (1.7-12.7); Neutrophils # 2.6 10*3/uL (1.4-7.4); Neutrophils % 52.2 % (38.7-73.9); Platelet Count 132 T/CUMM (130-400); Red Blood Count 3.27 MC/CUMM (3.8-5.5); Red Cell Distribution Width 12.9 % (9.3-17.3); White Blood Count 4.9 T/CUMM (4-12)
[2016-10-25 07:06] LABS: Calcium 8.6 MG/DL (8.5-10.1); Magnesium 1.8 MG/DL (1.8-2.4); Osmolality,Calculated 292.6 MOS/KG (273-304); Potassium 3.5 MMOL/L (3.5-5.1)
--- NOTE | 2016-10-25 08:24 | Hospitalist Progress Note ---
Assessment and Plan (1) History of renal transplant Status: Chronic Assessment and plan: Is being followed by nephrology. Current Visit: No (2) Hypokalemia Status: Acute Assessment and plan: His potassium today is 3.5. Current Visit: No (3) Acute on chronic renal insufficiency Status: Acute Assessment and plan: His BUN and creatinine today are 20 and 1.2 respectively. His calculated GFR is 69. His renal function has improved and is stable. Current Visit: No (4) Bradycardia Status: Chronic Assessment and plan: He continues to experience bradycardia. His heart rate today is 51/min. I will decrease his carvedilol from 12.5 mg p.o. twice daily to 6.25 mg p.o. twice daily. Current Visit: Yes (5) Hypertension Status: Chronic Assessment and plan: His blood pressure today is 145/83. He is being treated with the above-noted carvedilol and nifedipine 10 mg p.o. every 4H PRN. I will start him on amlodipine 2.5 mg p.o. daily. Current Visit: Yes Qualifiers: Hypertension type: essential hypertension Qualified Code(s): I10 - Essential (primary) hypertension (6) Seizure Status: Acute Assessment and plan: He was admitted to the hospital with new onset seizures. He was seen in consultation by Dr. De Paz of neurology. He is presently being treated with Keppra with no recurrent seizures. Current Visit: Yes Hospitalist: Subjective Interval history: He is significantly improved since admission to the hospital. Prior to his hospitalization, he had been living at home. He is ready for discharge, but I am concerned that he is too weak to go home. I will consult case management for assistance with his discharge. Exam - Constitutional Vitals: Period Temp Pulse Resp BP Sys/Mckinney Pulse Ox Last 24 Hr 96.6 F-98.3 F 50-67 18-20 112-169/57-83 90-100 General appearance: no acute distress - Head Head exam: Present: normal inspection - Neck Neck exam: Present: normal inspection - Respiratory Respiratory exam: Present: clear to auscultation bilaterally - Cardiovascular Cardiovascular exam: Present: regular rate and rhythm - GI/Abdominal GI/Abdominal exam: Present: normal bowel sounds, soft, other (Nontender with no palpable masses or hepatosplenomegaly.) - Extremities Exam Extremities exam: Present: normal inspection - Neurological Exam Neurological exam: Present: alert, oriented X3 - Skin Skin exam: Present: normal color, warm, intact Results - Labs CBC & BMP: 10/25/16 05:45 10/25/16 05:45 Specialty Discharge - Follow Up or Referrals
[2016-10-25] MEDS: CHOLECALCIFEROL 1,000 UNIT TABLET PO SCH (09:12)
[2016-10-25] MEDS: FAMOTIDINE 20 MG TABLET PO SCH (09:13)
[2016-10-25] MEDS: levETIRAcetam 500 MG TABLET PO SCH ×2 (09:13→20:40)
[2016-10-25] MEDS: MYCOPHENOLATE MOFETIL 250 MG CAPSULE PO SCH ×2 (09:13→20:39)
[2016-10-25] MEDS: ASPIRIN 325 MG TABLET PO SCH (09:13)
[2016-10-25] MEDS: SODIUM BICARBONATE 650 MG TABLET PO SCH ×2 (09:13→20:40)
[2016-10-25] MEDS: CEFUROXIME 250 MG TABLET PO SCH ×2 (09:13→20:38)
[2016-10-25] MEDS: LUBIPROSTONE 24 MCG CAPSULE PO SCH (09:14)
[2016-10-25] MEDS: predniSONE 5 MG TABLET PO SCH (09:14)
[2016-10-25] MEDS: POTASSIUM PHOS/SOD PHOS 250 MG TABLET PO SCH ×2 (09:14→20:38)
[2016-10-25] MEDS: amLODIPine 2.5 MG TABLET PO SCH (09:58)
[2016-10-25] MEDS: TACROLIMUS 0.5 MG CAPSULE PO SCH ×2 (09:58→20:38)
[2016-10-25] MEDS: CARVEDILOL 6.25 MG TABLET PO SCH ×2 (09:58→17:02)
--- NOTE | 2016-10-25 14:00 | Nephrology Progress Note ---
Nephrology - PN: Subj Interval history: Patient is resting on the ventilator but is awake. Serum creatinine is noted to be 2.2. At this time Keppra has been adjusted. 10/20/2016. The patient remains ventilated. He is resting comfortably and will awaken easily. The patient tries to say that he is thirsty through the ET tube. No acute changes. Serum creatinine is 2.6 today. No fevers or chills. 10/21/2016. The patient remains ventilated is awake this morning. Plans for extubation sometime today. Serum creatinine is noted to be 2.6. Started on IV fluids last night. 10/22/2016. The patient is now extubated. He continues to do well. Still feels weak on his left side. Serum creatinine is now 1.8. IV fluids have been stopped. Continue to encourage patient with p.o. fluid intake. 10/23/2016. The patient is resting. Serum creatinine is noted be 1.3. Patient only has been emotionally distressed in the last 24 hours after being extubated dealing with this hypotensive episodes and adjusting to his recovery process. Continuing to encourage the patient. 10/24/2016. Patient is resting comfortably. Did have a headache earlier. Has been able to sit up with family today. Serum creatinine is noted be 1.0. Serum potassium is 3.1 we will supplement today with 40 mEq potassium today. 10/25/2016. The patient is resting comfortably. Patient's strength continues to improve. Serum creatinine stable at 1.2. He mentions that he was able to get a little bit of rest of about an hour last night. Still mentions seeing things in the night. Exam (PN)-Nephrology - Vital Signs Vital signs: Period Temp Pulse Resp BP Sys/Mckinney Pulse Ox Last 24 Hr 96.6 F-98.3 F 50-72 18-20 100-169/67-83 93-100 - General Appearance General appearance: well-developed, well-nourished EENT: ATNC Neck: supple Respiratory: clear Cardiology: regular rate, regular rhythm Gastrointestinal: normoactive bowel sounds, no tenderness Neurologic: alert and oriented x3 Musculoskeletal: no clubbing Psychiatric: mood/affect appropriate - Lab 10/25/16 05:45 10/25/16 05:45 Most recent lab results ABG pH 7.402 (7.35-7.45) 10/21/16 12:25 ABG pCO2 31.7 MM HG (35-48) L 10/21/16 12:25 ABG pO2 133.0 MM HG (80-95) H 10/21/16 12:25 ABG HCO3 21.0 MMOL/L (20-26) 10/21/16 12:25 ABG O2 Saturation 99.0 % (95-100) 10/21/16 12:25 Calcium 8.6 MG/DL (8.5-10.1) 10/25/16 05:45 Phosphorus 3.6 MG/DL (2.5-4.9) 10/18/16 16:27 Magnesium 1.8 MG/DL (1.8-2.4) 10/25/16 05:45 Assessment and Plan (1) History of renal transplant Status: Chronic Assessment and plan: Renal function is stable. Current Visit: No (2) Seizures Status: Acute Assessment and plan: Now on Keppra 3 times a day. Current Visit: Yes (3) Altered mental status Status: Acute Current Visit: Yes (4) Bradycardia Status: Chronic Current Visit: Yes (5) Hypokalemia Status: Acute Assessment and plan: This has improved. Current Visit: No Specialty Discharge - Follow Up or Referrals
--- NOTE | 2016-10-25 16:11 | Cardiology Progress Note ---
Jewel Amaro Vanessa, RN, am scribing for, and in the presence of, Allen Robledo MD 16:11. Assessment and Plan - Time spent with patient Time spent with patient: Greater than 30 minutes (1) Bradycardia Status: Chronic Assessment and plan: SEE PLAN OF CARE LISTED BELOW. Current Visit: Yes (2) History of coronary artery disease Status: Chronic Assessment and plan: SEE PLAN OF CARE LISTED BELOW. Current Visit: Yes (3) History of renal transplant Status: Chronic Assessment and plan: SEE PLAN OF CARE LISTED BELOW. Current Visit: No (4) Hypertension Status: Chronic Assessment and plan: SEE PLAN OF CARE LISTED BELOW. Current Visit: Yes Qualifiers: Hypertension type: essential hypertension Qualified Code(s): I10 - Essential (primary) hypertension (5) Hyperlipidemia Status: Chronic Assessment and plan: SEE PLAN OF CARE LISTED BELOW. Current Visit: Yes (6) History of hyperglycemia Status: Chronic Assessment and plan: SEE PLAN OF CARE LISTED BELOW. Current Visit: Yes (7) Tobacco use Status: Chronic Assessment and plan: SEE PLAN OF CARE LISTED BELOW. Current Visit: Yes (8) Acute on chronic renal failure Status: Chronic Assessment and plan: SEE PLAN OF CARE LISTED BELOW. Current Visit: Yes (9) Hypokalemia Status: Acute Assessment and plan: SEE PLAN OF CARE LISTED ABOVE. Current Visit: No Cardiology - PN: Subj Interval history: PRIMARY HUMAN RESOURCES ANALYST: DR. RIBEIRO SUMMARY: 60 year old NAM, PMHx hypertension, hyperlipidemia, hyperglycemia, CKD, tobacco use, end-stage renal disease related to IgA nephropathy now status post renal transplant 2004, current immunosuppressive therapy, routinely followed by Dr. Barrera. Status post non-Q CO with stent to mid circumflex in 2012. He also has chronic back pain with previous lumbar nerve stimulator and back surgery. Other history includes squamous cell carcinoma now status post surgical removal and radiation last echo in 12/2015 with preserved LV systolic function, EF 50-55 %, mild diastolic dysfunction and aortic insufficiency. Myocardial perfusion study at the time negative for ischemia. Patient was admitted [facility] from [facility] on 10/18 after syncopal episode and seizure activity following. He did require intubation for airway protection. Diagnostic workup thus far benign. Cardiology was asked to see for bradycardia, HR 40s-50s. Beta-jossie was held at admission. Patient extubated on 10/21. Transferred [facility] floor on 10/22. In the immediate. Post extubation, patient appeared to have some left sided hemiplegia which has since resolved completely. 2016: Patient has done relatively well since transfer from ICU over the weekend. He is awake and alert this morning, good appetite, says he does have some trouble swallowing at times. He reports "an episode" with a headache similar to previous episodes, but says he did not lose consciousness. He denies experiencing chest pain, dyspnea, palpitations, or vision changes with this. Did have a head CT after this which showed no abnormality or change from previous study on 10/19. Does have some reproducible chest soreness which he contributes to previous resuscitation efforts prior to admission. Over the weekend, per Dr. Lee, a tacrolimus (Prograf) level was ordered and drawn, as this medication has been known to cause neurotoxicity and seizures. However, it will have to be sent out to [facility], and per laboratory staff, the earliest this result will be received is Tuesday. Carvedilol was resumed on the morning of 10/23, and dosage has been titrated down, currently 6.25 mg by mouth twice daily. Cardiac monitoring reveals sinus rhythm, heart rate 60s with transient mild bradycardia, HR mid 50s. SBP 120-150 mmHg. Labs reviewed. Cell counts stable. Hypokalemia yesterday, 3.1 is improved today with KCl 3.5. Renal function stable with creatinine greatly improved, 1.2 (2.4 on admit). Magnesium 1.8. Troponin levels remained trivial (0.083, 0.072, 0.085). Case management has now been consulted per hospital medicine for discharge planning. ASSESSMENT/PLAN: 1. BRADYCARDIA -Coreg has been resumed, titrated down in response to HR. Coreg 6.25 mg PO BID starting this morning. Monitor hemodynamics today. 2. HYPERTENSION -Chronic, stable. Monitor and adjust antihypertensive regimen as indicated. 3. CAD - History of PCI greater than 4 years ago. At last clinic visit with Dr. Ribeiro in June, patient had no anginal complaint. Patient has had no clinical findings at this time for ACS. Continue low dose ASA. Troponin remains trivially elevated in consistent pattern. 4. TOBACCO USE -the merits of tobacco cessation have been addressed. 5. CHRONIC KIDNEY DISEASE -creatinine has improved from 2.4 on admit down to 1.2. Monitor and adjust medications accordingly. 6 SYNCOPE / SEIZURE - Diagnostic workup for etiology thus far benign. No history of previous seizures. Dr. De Paz has evaluated. EEG with mild generalized slowing but no seizure activity. He has had some recurrent presyncope. Telemetry monitoring has been nonrevealing. Prograf level drawn on the -- it will have to be sent to [facility] for testing, will not be back until Tuesday at earliest. Patient's heart rhythm is improved. He feels physically a little better. He has little chest soreness related to his resuscitative efforts. He is overall doing well from a cardiac standpoint. Nephrology is following. I have discussed in detail the particulars of this case and I have examined the patient and reviewed the patient's chart both current and old. I was directly involved in the patient's evaluation and management and I completely agree with Jennifer Holloway RN regarding this patient's evaluation and treatment plan. Exam (Progress Note) - Constitutional Vitals: Period Temp Pulse Resp BP Sys/Mckinney Pulse Ox Last 24 Hr 96.6 F-98.3 F 50-67 18-20 112-169/57-83 90-100 Exam: General appearance: normal weight, no acute distress. somewhat confused at times , but seems to be improving. He is pleasant and cooperative - Head Head exam: Present: normocephalic, atraumatic. Absent: hematoma, laceration - Eye Eye exam: Absent: conjunctival injection, nystagmus, periorbital swelling, scleral icterus, laceration to eyelids Pupils: Present: LISSETTE. Absent: constricted, dilated, fixed, irregular, unequal - ENT ENT exam: Present: normal exam, normal external ear exam. - Neck Neck exam: Present: normal inspection. Absent: lymphadenopathy, meningismus, tenderness, thyromegaly - Respiratory Respiratory exam: Present: clear to auscultation bilaterally. Absent: accessory muscle use, chest wall tenderness, rhonchi, wheeze. - Cardiovascular Cardiovascular exam: Present: regular rate and regular rhythm. Mild bradycardia. Absent: carotid bruit, gallop, JVD, rubs, murmur - GI/Abdominal GI/Abdominal exam: Present: normal bowel sounds, soft. Absent: distended, firm , guarding, hernia, mass, tenderness, rebound - Extremities Exam Extremities exam: Present: normal inspection, normal capillary refill. Absent: calf tenderness, edema - Back Exam Back exam: normal back exam. no tenderness. - Neurological Exam Neurological exam: He is now able to move his left side equal to his right, grossly intact.. No essential tremor. - Psychiatric Psychiatric exam: Normal mood. Patient does not appear to be anxious or depressed. - Skin Skin exam: Present: normal color, warm, dry, intact. Absent: cyanosis, diaphoretic, rash, urticaria, suspicious lesion Result/EKG - Labs CBC & BMP: 10/25/16 05:45 10/25/16 05:45 Lab Results: I have reviewed the past 24 hour labs Labs: Laboratory Results - last 24 hr 10/25/16 10/25/16 05:45 05:45 WBC 4.9 RBC 3.27 L Hgb 10.1 L Hct 29.1 L MCV 89.0 MCH 31 MCHC 34.7 RDW 12.9 Plt Count 132 MPV 10.0 Neut % (Auto) 52.2 Lymph % (Auto) 35.3 [place] % (Auto) 10.3 Eos % (Auto) 1.8 Baso % (Auto) 0.0 Neut # (Auto) 2.6 Lymph # (Auto) 1.7 [place] # (Auto) 0.5 Eos # (Auto) 0.1 Baso # (Auto) 0.0 Immature Gran % 0.4 Nucleated RBC % 0.0 Immature Gran # 0.02 Nucleated RBCs # 0.00 Immature Plt Fraction 0.0 Sodium 146 H Potassium 3.5 Chloride 112 H Carbon Dioxide 28 Anion Gap 9.5 BUN 20 H Creatinine 1.20 GFR Calculation 69 BUN/Creatinine Ratio 16.00 Glucose 97 Calculated Osmolality 292.6 Calcium 8.6 Magnesium 1.8 - EKG EKG results: interpreted by me, no acute changes EKG shows: sinus rhythm (Pulse 60s; transient bradycardia 50s) Specialty Discharge - Follow Up or Referrals I, Allen Robledo MD, personally performed the services described in this documentation, ascribed by Jennifer Holloway RN in my presence, and it is both accurate and complete 611 .
[2016-10-25] MEDS: DAPTOmycin 500 MG in SODIUM CHLORIDE 0.9% 50 ML IV SCH (20:38)
[2016-10-25] MEDS: ENOXAPARIN 40 MG/0.4 ML SYRINGE SUBCUT SCH (20:46)
[2016-10-26 06:23] LABS: Basophils % 0.2 % (0.0-0.8); Eosinophils # 0.1 10*3/uL (0.0-0.87); Eosinophils % 2.3 % (0.00-10.9); Hematocrit 28.5 VOL% (42.0-52.0); Hemoglobin 9.9 GM/DL (14.0-18.0); Immature Granulocytes % 0.9 %; Immature Granulocytes Absolute 0.05 #; Lymphocytes # 1.9 10*3/uL (1.4-4.0); Lymphocytes % 34.4 % (21.2-54.2); Mean Corpuscular HGB Conc 34.7 GM/DL (32-36); Mean Corpuscular Hemoglobin 31 PG (27-34); Mean Corpuscular Volume 90.2 FL (87-102); Mean Platelet Volume 9.9 FL (9.6-12.0); Monocytes # 0.5 10*3/uL (0.11-0.8); Monocytes % 9.7 % (1.7-12.7); Neutrophils # 2.9 10*3/uL (1.4-7.4); Neutrophils % 52.5 % (38.7-73.9); Platelet Count 141 T/CUMM (130-400); Red Blood Count 3.16 MC/CUMM (3.8-5.5); Red Cell Distribution Width 13.1 % (9.3-17.3); White Blood Count 5.6 T/CUMM (4-12)
[2016-10-26 06:57] LABS: Calcium 8.4 MG/DL (8.5-10.1); Magnesium 1.7 MG/DL (1.8-2.4); Osmolality,Calculated 287.7 MOS/KG (273-304); Potassium 3.5 MMOL/L (3.5-5.1)
[2016-10-26] MEDS: CARVEDILOL 6.25 MG TABLET PO SCH (08:16)
[2016-10-26] MEDS: LUBIPROSTONE 24 MCG CAPSULE PO SCH ×2 (09:03→09:12)
[2016-10-26] MEDS: FAMOTIDINE 20 MG TABLET PO SCH (09:11)
[2016-10-26] MEDS: TACROLIMUS 0.5 MG CAPSULE PO SCH ×2 (09:11→20:21)
[2016-10-26] MEDS: MYCOPHENOLATE MOFETIL 250 MG CAPSULE PO SCH ×2 (09:12→20:23)
[2016-10-26] MEDS: amLODIPine 2.5 MG TABLET PO SCH (09:12)
[2016-10-26] MEDS: ASPIRIN 325 MG TABLET PO SCH (09:12)
[2016-10-26] MEDS: POTASSIUM PHOS/SOD PHOS 250 MG TABLET PO SCH ×2 (09:12→20:22)
[2016-10-26] MEDS: SODIUM BICARBONATE 650 MG TABLET PO SCH ×2 (09:12→20:23)
[2016-10-26] MEDS: CHOLECALCIFEROL 1,000 UNIT TABLET PO SCH (09:13)
[2016-10-26] MEDS: CEFUROXIME 250 MG TABLET PO SCH ×2 (09:13→20:22)
[2016-10-26] MEDS: levETIRAcetam 500 MG TABLET PO SCH ×2 (09:13→20:23)
[2016-10-26] MEDS: predniSONE 5 MG TABLET PO SCH (09:13)
[2016-10-26] MEDS: MAGNESIUM SULF RIDER 2 GM in PREMIX 1 EACH IV SCH ×2 (09:48→11:58)
--- NOTE | 2016-10-26 11:21 | Hospitalist Progress Note ---
Assessment and Plan (1) History of renal transplant Status: Chronic Assessment and plan: Is being followed by nephrology. Current Visit: No (2) Hypokalemia Status: Acute Assessment and plan: His potassium today is 3.5. Current Visit: No (3) Acute on chronic renal insufficiency Status: Acute Assessment and plan: His BUN and creatinine today are 16 and 1.0 respectively. His calculated GFR is 77. His renal function has improved and is stable. Current Visit: No (4) Bradycardia Status: Chronic Assessment and plan: He continues to experience bradycardia. His heart rate today is 53/min. I will decrease his carvedilol from 6.25 mg p.o. twice daily to 3.125 mg p.o. twice daily. Current Visit: Yes (5) Hypertension Status: Chronic Assessment and plan: His blood pressure today is 129/80. He is being treated with the above-noted carvedilol and nifedipine 10 mg p.o. every 4H PRN. I will start him on amlodipine 2.5 mg p.o. daily. Current Visit: Yes Qualifiers: Hypertension type: essential hypertension Qualified Code(s): I10 - Essential (primary) hypertension (6) Seizure Status: Acute Assessment and plan: He was admitted to the hospital with new onset seizures. He was seen in consultation by Dr. De Paz of neurology. He is presently being treated with Keppra 500 mg po BID with no recurrent seizures. Current Visit: Yes Hospitalist: Subjective Interval history: Patient is feeling better. He has increased his walking. I discussed with him that he will probably be discharged tomorrow morning. Exam - Constitutional Vitals: Period Temp Pulse Resp BP Sys/Mckinney Pulse Ox Last 24 Hr 97.1 F-98.0 F 53-72 18-97 100-131/60-80 92-99 General appearance: no acute distress - Head Head exam: Present: normal inspection - Neck Neck exam: Present: normal inspection - Respiratory Respiratory exam: Present: clear to auscultation bilaterally - Cardiovascular Cardiovascular exam: Present: regular rate and rhythm - GI/Abdominal GI/Abdominal exam: Present: normal bowel sounds, soft, other (Nontender with no palpable masses or hepatosplenomegaly.) - Extremities Exam Extremities exam: Present: normal inspection - Neurological Exam Neurological exam: Present: alert, oriented X3 - Skin Skin exam: Present: normal color, warm, intact Results - Labs CBC & BMP: 10/26/16 05:17 10/26/16 05:17 Specialty Discharge - Follow Up or Referrals
--- NOTE | 2016-10-26 12:31 | Nephrology Progress Note ---
Nephrology - PN: Subj Interval history: Patient is resting on the ventilator but is awake. Serum creatinine is noted to be 2.2. At this time Keppra has been adjusted. 10/20/2016. The patient remains ventilated. He is resting comfortably and will awaken easily. The patient tries to say that he is thirsty through the ET tube. No acute changes. Serum creatinine is 2.6 today. No fevers or chills. 10/21/2016. The patient remains ventilated is awake this morning. Plans for extubation sometime today. Serum creatinine is noted to be 2.6. Started on IV fluids last night. 10/22/2016. The patient is now extubated. He continues to do well. Still feels weak on his left side. Serum creatinine is now 1.8. IV fluids have been stopped. Continue to encourage patient with p.o. fluid intake. 10/23/2016. The patient is resting. Serum creatinine is noted be 1.3. Patient only has been emotionally distressed in the last 24 hours after being extubated dealing with this hypotensive episodes and adjusting to his recovery process. Continuing to encourage the patient. 10/24/2016. Patient is resting comfortably. Did have a headache earlier. Has been able to sit up with family today. Serum creatinine is noted be 1.0. Serum potassium is 3.1 we will supplement today with 40 mEq potassium today. 10/25/2016. The patient is resting comfortably. Patient's strength continues to improve. Serum creatinine stable at 1.2. He mentions that he was able to get a little bit of rest of about an hour last night. Still mentions seeing things in the night. 10/26/2016. The patient is resting comfortably. Again his strength continues to improve. Serum creatinine is stable. Exam (PN)-Nephrology - Vital Signs Vital signs: Period Temp Pulse Resp BP Sys/Mckinney Pulse Ox Last 24 Hr 97.1 F-98.6 F 53-59 18-97 109-135/60-80 92-99 - General Appearance General appearance: well-developed, well-nourished EENT: ATNC Neck: supple Respiratory: clear Cardiology: no edema, regular rate, regular rhythm Gastrointestinal: normoactive bowel sounds, no tenderness Psychiatric: mood/affect appropriate, cooperative - Lab 10/26/16 05:17 10/26/16 05:17 Most recent lab results ABG pH 7.402 (7.35-7.45) 10/21/16 12:25 ABG pCO2 31.7 MM HG (35-48) L 10/21/16 12:25 ABG pO2 133.0 MM HG (80-95) H 10/21/16 12:25 ABG HCO3 21.0 MMOL/L (20-26) 10/21/16 12:25 ABG O2 Saturation 99.0 % (95-100) 10/21/16 12:25 Calcium 8.4 MG/DL (8.5-10.1) L 10/26/16 05:17 Phosphorus 3.6 MG/DL (2.5-4.9) 10/18/16 16:27 Magnesium 1.7 MG/DL (1.8-2.4) L 10/26/16 05:17 Assessment and Plan (1) History of renal transplant Status: Chronic Assessment and plan: Renal function is stable. Current Visit: No (2) Seizures Status: Acute Assessment and plan: Now on Keppra 3 times a day. Current Visit: Yes (3) Altered mental status Status: Acute Current Visit: Yes (4) Bradycardia Status: Chronic Current Visit: Yes (5) Hypokalemia Status: Acute Assessment and plan: This has improved. Current Visit: No Specialty Discharge - Follow Up or Referrals
--- NOTE | 2016-10-26 16:21 | Cardiology Progress Note ---
Jewel Amaro Vanessa, RN, am scribing for, and in the presence of, Allen Robledo MD 16:20. Assessment and Plan - Time spent with patient Time spent with patient: Greater than 30 minutes (1) Bradycardia Status: Chronic Assessment and plan: SEE PLAN OF CARE LISTED BELOW. Current Visit: Yes (2) History of coronary artery disease Status: Chronic Assessment and plan: SEE PLAN OF CARE LISTED BELOW. Current Visit: Yes (3) History of renal transplant Status: Chronic Assessment and plan: SEE PLAN OF CARE LISTED BELOW. Current Visit: No (4) Hypertension Status: Chronic Assessment and plan: SEE PLAN OF CARE LISTED BELOW. Current Visit: Yes Qualifiers: Hypertension type: essential hypertension Qualified Code(s): I10 - Essential (primary) hypertension (5) Hyperlipidemia Status: Chronic Assessment and plan: SEE PLAN OF CARE LISTED BELOW. Current Visit: Yes (6) History of hyperglycemia Status: Chronic Assessment and plan: SEE PLAN OF CARE LISTED BELOW. Current Visit: Yes (7) Tobacco use Status: Chronic Assessment and plan: SEE PLAN OF CARE LISTED BELOW. Current Visit: Yes (8) Acute on chronic renal failure Status: Chronic Assessment and plan: SEE PLAN OF CARE LISTED BELOW. Current Visit: Yes (9) Hypomagnesemia Status: Acute Assessment and plan: SEE PLAN OF CARE LISTED BELOW. Current Visit: Yes Cardiology - PN: Subj Interval history: PRIMARY FIRER DIESEL LOCOMOTIVE: DR. RIBEIRO SUMMARY: 60 year old NAM, PMHx hypertension, hyperlipidemia, hyperglycemia, CKD, tobacco use, end-stage renal disease related to IgA nephropathy now status post renal transplant 2004, current immunosuppressive therapy, routinely followed by Dr. Barrera. Status post non-Q [place] with stent to mid circumflex in 2012. He also has chronic back pain with previous lumbar nerve stimulator and back surgery. Other history includes squamous cell carcinoma now status post surgical removal and radiation last echo in 12/2015 with preserved LV systolic function, EF 50-55 %, mild diastolic dysfunction and aortic insufficiency. Myocardial perfusion study at the time negative for ischemia. Patient was admitted [place] ICU from [facility] on 10/18 after syncopal episode and seizure activity following. He did require intubation for airway protection. Diagnostic workup thus far benign. Cardiology was asked to see for bradycardia, HR 40s-50s. Beta-jossie was held at admission. Patient extubated on 10/21. Transferred to [facility] floor on 10/22. Immediate interim post extubation, patient had some left sided hemiplegia which has since resolved completely. Transferred 2016: Mr. Claudio awake, resting quietly this morning. No dyspnea, chest pain (mild chest soreness, unchanged). No palpitations, dizziness. Slight headache. Stable bradycardia, HR upper 50s, regular rhythm. SBP 115-130 mmHg. Labs reviewed. Cell counts stable. Renal function is stable. Hypomagnesemic, 1.7. He is gradually increasing his activity with assistance PT/OT, using cane for ambulation. From a cardiac standpoint, he is stable and doing well. ASSESSMENT/PLAN: 1. BRADYCARDIA -Coreg has been resumed, titrated down in response to HR. Coreg 6.25 mg PO BID starting this morning. Monitor hemodynamics today. 2. HYPERTENSION -Chronic, stable. Monitor and adjust antihypertensive regimen as indicated. 3. CAD - History of PCI greater than 4 years ago. At last clinic visit with Dr. Ribeiro in June, patient had no anginal complaint. No findings for ACS. Continue low dose ASA. 4. TOBACCO USE -the merits of tobacco cessation have been addressed. 5. CHRONIC KIDNEY DISEASE -creatinine remains stable and has improved from 2.4 on admit down to 1.1. Monitor and adjust medications accordingly. Nephrology following also. 6. SYNCOPE / SEIZURE - Diagnostic workup for etiology thus far benign. No history of previous seizures. Dr. De Paz has evaluated. EEG with mild generalized slowing but no seizure activity. He has had some recurrent presyncope. Telemetry monitoring has been nonrevealing. Prograf level pending. Hopefully results from [facility] available by Tuesday. 8. HYPOMAGNESEMIA-Will replete with MagSulfate 2 grams IV over 2 hours. Repeat dose x 1. Begin MagOx 400 mg PO twice daily. Follow up BMP with Mg+ in the morning. I have discussed in detail the particulars of this case and I have examined the patient and reviewed the patient's chart both current and old. I was directly involved in the patient's evaluation and management and I completely agree with Jennifer Holloway RN regarding this patient's evaluation and treatment plan. Exam (Progress Note) - Constitutional Vitals: Period Temp Pulse Resp BP Sys/Mckinney Pulse Ox Last 24 Hr 97.1 F-98.0 F 53-72 18-97 100-131/60-80 92-99 Exam: General appearance: normal weight, no acute distress. Pleasant and cooperative - Head Head exam: Present: normocephalic, atraumatic. Absent: hematoma, laceration - Eye Eye exam: Absent: conjunctival injection, nystagmus, periorbital swelling, scleral icterus, laceration to eyelids Pupils: Present: LISSETTE. Absent: constricted, dilated, fixed, irregular, unequal - ENT ENT exam: Present: normal exam, normal external ear exam. - Neck Neck exam: Present: normal inspection. Absent: lymphadenopathy, meningismus, tenderness, thyromegaly - Respiratory Respiratory exam: Present: clear to auscultation bilaterally. Absent: accessory muscle use, chest wall tenderness, rhonchi, wheeze. No supplemental oxygen. - Cardiovascular Cardiovascular exam: Present: regular rhythm. mild, stable bradycardia. Absent: carotid bruit, gallop, JVD, rubs, murmur - GI/Abdominal GI/Abdominal exam: Present: normal bowel sounds, soft. Absent: distended, firm , guarding, hernia, mass, tenderness, rebound - Extremities Exam Extremities exam: Present: normal inspection, normal capillary refill. Absent: calf tenderness, edema - Back Exam Back exam: normal back exam. no tenderness. - Neurological Exam Neurological exam: Moves all extremities equally. Grossly intact. No tremor. - Psychiatric Psychiatric exam: Normal mood. Patient does not appear to be anxious or depressed. - Skin Skin exam: Present: normal color, warm, dry, intact. Absent: cyanosis, diaphoretic, rash, urticaria, suspicious lesion Result/EKG - Labs CBC & BMP: 10/26/16 05:17 10/26/16 05:17 Lab Results: I have reviewed the past 24 hour labs Labs: Laboratory Results - last 24 hr 10/26/16 10/26/16 05:17 05:17 WBC 5.6 RBC 3.16 L Hgb 9.9 L Hct 28.5 L MCV 90.2 MCH 31 MCHC 34.7 RDW 13.1 Plt Count 141 MPV 9.9 Neut % (Auto) 52.5 Lymph % (Auto) 34.4 [place] % (Auto) 9.7 Eos % (Auto) 2.3 Baso % (Auto) 0.2 Neut # (Auto) 2.9 Lymph # (Auto) 1.9 [place] # (Auto) 0.5 Eos # (Auto) 0.1 Baso # (Auto) 0.0 Immature Gran % 0.9 Nucleated RBC % 0.0 Immature Gran # 0.05 Nucleated RBCs # 0.00 Immature Plt Fraction 0.0 Sodium 145 Potassium 3.5 Chloride 111 H Carbon Dioxide 28 Anion Gap 9.5 BUN 16 Creatinine 1.10 GFR Calculation 77 BUN/Creatinine Ratio 14.00 Glucose 80 Calculated Osmolality 287.7 Calcium 8.4 L Magnesium 1.7 L - EKG EKG results: interpreted by me, no acute changes EKG shows: bradycardia Specialty Discharge - Follow Up or Referrals Venkat Amaro Wesley, MD, personally performed the services described in this documentation, ascribed by Jennifer Holloway RN in my presence, and it is both accurate and complete [id number] .
[2016-10-26] MEDS: CARVEDILOL 3.125 MG TABLET PO SCH (20:22)
[2016-10-26] MEDS: DAPTOmycin 500 MG in SODIUM CHLORIDE 0.9% 50 ML IV SCH (20:23)
[2016-10-26] MEDS: MAGNESIUM OXIDE 400 MG TABLET PO SCH (20:23)
[2016-10-26] MEDS: ENOXAPARIN 40 MG/0.4 ML SYRINGE SUBCUT SCH (20:23)
[2016-10-27 06:47] LABS: Basophils % 0.2 % (0.0-0.8); Eosinophils # 0.1 10*3/uL (0.0-0.87); Eosinophils % 2.1 % (0.00-10.9); Hematocrit 28.3 VOL% (42.0-52.0); Hemoglobin 9.6 GM/DL (14.0-18.0); Immature Granulocytes % 0.6 %; Immature Granulocytes Absolute 0.03 #; Lymphocytes # 1.9 10*3/uL (1.4-4.0); Lymphocytes % 35.8 % (21.2-54.2); Mean Corpuscular HGB Conc 33.9 GM/DL (32-36); Mean Corpuscular Hemoglobin 31 PG (27-34); Mean Platelet Volume 9.8 FL (9.6-12.0); Monocytes # 0.5 10*3/uL (0.11-0.8); Monocytes % 9.1 % (1.7-12.7); Neutrophils # 2.7 10*3/uL (1.4-7.4); Neutrophils % 52.2 % (38.7-73.9); Platelet Count 152 T/CUMM (130-400); Red Blood Count 3.11 MC/CUMM (3.8-5.5); Red Cell Distribution Width 13.2 % (9.3-17.3); White Blood Count 5.2 T/CUMM (4-12)
[2016-10-27 07:16] LABS: Calcium 8.4 MG/DL (8.5-10.1); Osmolality,Calculated 287.7 MOS/KG (273-304); Potassium 3.7 MMOL/L (3.5-5.1)
--- NOTE | 2016-10-27 08:06 | Discharge Summary ---
Hospital Course - Hospital Course Hospital Course: This is a very pleasant 52-year-old male that presented to the ED at [facility] this afternoon for the evaluation of syncope. The patient has a very long and complex medical history significant for renal failure, IgA nephropathy, hypertension, myocardial infarction, skin cancer, chronic neck and back pain, and current nicotine use. 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 At the time of interview, the patient was grossly altered. His who was present at bedside service historian. The reported the onset of symptoms today. She reported that she and the patient were at a local gas station pumping gas into the car when the patient became very weak and subsequently passed out. She reported that he was able to tell her that he was "feeling strange" and proceeded to lower himself to the ground. She in turn got out of the car and along with the help of another person present at the gas station, assist the patient into the car. She reported that she was less than 1 mile away from the [facility]. She proceeded to transport the patient there for further evaluation.The patient was assessed at the time of presentation at the [facility]. Shortly upon arrival, the patient experienced seizure activity. A CT scan was performed which was essentially unremarkable. The patient was subsequently transferred to [facility] for further evaluation. The patient was assessed at the time of ED presentation. The patient was noted to be grossly lethargic. Multiple reversal agents were administered with minimal results. Shortly after arrival here at [facility] , the patient experienced another episode of seizure activity and Lorazepam was given. At this time of assessment, the patient was noted to be unresponsive. In addition, the patient's GCS was noted at 3. After brief discussion with both Dr. Rushing and Dr. Dougherty, the patient will be admitted to the hospitalist service for continuation of care. Due to the severity of the patient's current neurological status, a neurology consultation has been requested. It was admitted to the hospital with acute on chronic renal insufficiency, hypokalemia, bradycardia, and new onset seizures. He was seen in consultation by neurology, pulmonary, nephrology, and cardiology. An MRI of his brain demonstrated no acute abnormalities. EEG demonstrated no acute abnormalities. He was treated in the hospital with Keppra for his seizures. He experienced no recurrent such episodes. His dose of carvedilol was decreased to 3.125 mg p.o. D. He remained bradycardic with heart rates in the 50s. At the time of his discharge he was stable with no problems. Diagnosis - Discharge Diagnosis (1) History of renal transplant Status: Chronic (2) Hypokalemia Status: Acute (3) Acute on chronic renal insufficiency Status: Acute (4) Bradycardia Status: Chronic (5) Hypertension Status: Chronic (6) Seizure Status: Acute Specialty Discharge - Follow Up or Referrals Discharge Plan - Discharge Data Disposition: Disch To Home/Self Care Condition at Discharge: Stable Discharge Diet: advance to your usual diet Activity: resume usual activities as tolerated - Discharge Medications New Aspirin Tab 325 mg PO DAILY tablet Carvedilol [Coreg] 3.125 mg PO BID #60 tablet Magnesium Oxide 400 mg PO BID #60 tablet amLODIPine [Norvasc] 5 mg PO DAILY #30 tablet levETIRAcetam TAB [Keppra Tab] 500 mg PO BID #60 tablet Continue Aspirin [Ecotrin] 81 mg PO DAILY #100 tablet. Furosemide Tab [Lasix Tab] 40 mg PO BID #100 tablet Cyclobenzaprine [Flexeril] 5 mg PO BID PRN PRN Reason: Muscle Spasm Pantoprazole Tab [Protonix Tab] 40 mg PO DAILY Lubiprostone [Amitiza] 1 capsule PO DAILY Sod Phos Di, [place]/K Phos [place] [Phospho-Joie 250 Neutral Tab] 2 tablet PO BID Bisacodyl Tab [Dulcolax Tab] 2 tablet PO TID PRN PRN Reason: Constipation predniSONE TAB [PredniSONE] 5 mg PO DAILY Cholecalciferol [Vitamin D3] 1,000 unit PO DAILY Sodium Bicarb Tab 2 tablet PO BID Zinc Sulfate 220 mg PO DAILY Tacrolimus [Prograf] 1 mg PO BID #30 capsule Discontinued Mycophenolate Mofetil Cap [Cellcept] 750 mg PO BID #90 capsule Carvedilol [Carvedilol] 25 mg PO BID - Follow Up or Referral - Forms/Instructions Forms: Acute Care Work/School Release Exam - Constitutional Vitals: Period Temp Pulse Resp BP Sys/[place] Pulse Ox Last 24 Hr 96.8 F-98.6 F 53-88 18-20 118-157/68-88 96-99 Discharge Results Procedures and tests throughout hospitalization: Pending Orders 10/19/16 11:17 Occult Blood, Stool Routine 10/23/16 12:12 Blood Culture Stat Labs on day of discharge: Labs from last 24 hours 10/27/16 10/27/16 10/24/16 06:22 06:22 02:46 WBC 5.2 RBC 3.11 L Hgb 9.6 L Hct 28.3 L MCV 91.0 MCH 31 MCHC 33.9 RDW 13.2 Plt Count 152 MPV 9.8 Neut % (Auto) 52.2 Lymph % (Auto) 35.8 [place] % (Auto) 9.1 Eos % (Auto) 2.1 Baso % (Auto) 0.2 Neut # (Auto) 2.7 Lymph # (Auto) 1.9 [place] # (Auto) 0.5 Eos # (Auto) 0.1 Baso # (Auto) 0.0 Immature Gran % 0.6 Nucleated RBC % 0.0 Immature Gran # 0.03 Nucleated RBCs # 0.00 Immature Plt Fraction 0.0 Sodium 145 Potassium 3.7 Chloride 111 H Carbon Dioxide 28 Anion Gap 9.7 BUN 14 Creatinine 1.10 GFR Calculation 77 BUN/Creatinine Ratio 12.00 Glucose 83 Calculated Osmolality 287.7 Calcium 8.4 L Tacrolimus 9.0 Preliminary micro results at discharge 10/23/16 12:12 Blood Culture - Preliminary Blood No growth at 3 days 10/23/16 12:12 Blood Culture - Preliminary Blood No growth at 3 days DS: Provider Date of admission: 10/18/16 15:36 Primary care physician: Gaetano Herrera MD Attending physician on admission: Kennedi Dougherty MD Consults: 10/18/16 16:28 Consult to Pharmacy [CONS] Routine Reason for Pharmacy Consult: Adjust Meds Renal Funct Dose/Manage Antibiotics 10/18/16 17:22 Consult to Case Mgmt/Social Srvs [CONS] Routine Reason for Case Mgmt/Social Srvs: Discharge Planning Consult to Occupational Therapy [CONS] Routine Reason for Occupational Therapy: Evaluate and Treat Consult Comment: Stroke Consult to Physical Therapy [CONS] Routine Reason for Physical Therapy: Evaluate and Treat Consult Comment: stroke Consult to Physician [CONS] Routine Comment: renal failure in patient with renal transplant Consulting Provider: Holly,Joseph Jr. Consulting Provider Notified: Yes When should Consulting Provider be notified: Now Consult to Specialist Group: Nephrology When should Consulting Provider be notified: Now Person Notified: Dr. Mena Date Notified: 10/18/16 Time Notified: 17:07 Consult to Physician [CONS] Routine Comment: unresponsive, seizure Consulting Provider: Edson De Paz Consulting Provider Notified: Yes When should Consulting Provider be notified: In am Consult to Specialist Group: Neurology When should Consulting Provider be notified: In am Person Notified: Nathalie Date Notified: 10/19/16 Time Notified: 08:50 Consult to Physician [CONS] Routine Comment: vent vp care management Provider: Rohan Rowley Consult to Speech Therapy [CONS] Routine Reason for Speech Therapy: CVA Consult Comment: with/without possible aspiration 10/18/16 17:43 Consult to Dietitian [CONS] Routine Reason for Dietitian: Dietary Consult 10/19/16 10:05 Consult to Physician [CONS] Routine Comment: bradycardia Consulting Provider: Cardiology - [facility] Consulting Provider Notified: Yes When should Consulting Provider be notified: Now Consult to Specialist Group: Cardiology When should Consulting Provider be notified: Now Person Notified: Bisi Date Notified: 10/19/16 Time Notified: 10:38 10/22/16 11:10 Consult to Physical Therapy [CONS] Routine Reason for Physical Therapy: Gait Training Start Therapy: Today 10/25/16 08:20 Consult to Case Mgmt/Social Srvs [CONS] Routine Reason for Case Mgmt/Social Srvs: Discharge Planning Consult Comment: Ready for discharge today Consult to Physician [CONS] Routine Comment: regarding prograf level Consulting Provider: Joseph Barrera Jr. Consult to Specialist Group: Nephrology When should Consulting Provider be notified: Now Person Notified: QUITA Date Notified: 10/25/16 Discharging clinician: Andrew Carrillo
[2016-10-27 08:17] VITALS: BP 134/77
[2016-10-27] MEDS: LUBIPROSTONE 24 MCG CAPSULE PO SCH (08:32)
[2016-10-27] MEDS: ASPIRIN 325 MG TABLET PO SCH (08:32)
[2016-10-27] MEDS: MYCOPHENOLATE MOFETIL 250 MG CAPSULE PO SCH (08:33)
[2016-10-27] MEDS: CEFUROXIME 250 MG TABLET PO SCH (08:33)
[2016-10-27] MEDS: CARVEDILOL 3.125 MG TABLET PO SCH (08:35)
[2016-10-27] MEDS: POTASSIUM PHOS/SOD PHOS 250 MG TABLET PO SCH (08:35)
[2016-10-27] MEDS: MAGNESIUM OXIDE 400 MG TABLET PO SCH (08:36)
[2016-10-27] MEDS: levETIRAcetam 500 MG TABLET PO SCH (08:36)
[2016-10-27] MEDS: predniSONE 5 MG TABLET PO SCH (08:37)
[2016-10-27] MEDS: TACROLIMUS 0.5 MG CAPSULE PO SCH (08:37)
[2016-10-27] MEDS: amLODIPine 2.5 MG TABLET PO SCH (08:37)
[2016-10-27] MEDS: FAMOTIDINE 20 MG TABLET PO SCH (08:37)
[2016-10-27] MEDS: SODIUM BICARBONATE 650 MG TABLET PO SCH (08:38)
[2016-10-27] MEDS: CHOLECALCIFEROL 1,000 UNIT TABLET PO SCH (08:38)
== END 2016-10-27 11:55 | disposition home or self-care (01) | DRG 101 ==
LOC: EDBD → EDUNIT# → N.ED 14:30 → N.EDINP 15:36 → SUATTDRO 15:36 → N.ICU 17:20 → N.2E 10-22 17:27
PROVIDERS: ADMIT Internal Medicine

== ENCOUNTER 2020-07-15 11:20 | Inpatient (IN) ==
[2020-07-15] MEDS ORDERED: ENOXAPARIN 100 MG/ML SYRINGE SUBCUT STA (11:38)
[2020-07-15 11:48] LABS: Basophils % 0.4 % (0.0-0.8); Eosinophils # 0.2 10*3/uL (0.0-0.87); Eosinophils % 2.1 % (0.00-10.9); Hematocrit 32.3 VOL% (42.0-52.0); Hemoglobin 9.9 GM/DL (14.0-18.0); Immature Granulocytes % 2.7 %; Immature Granulocytes Absolute 0.24 #; Lymphocytes # 1.8 10*3/uL (1.4-4.0); Lymphocytes % 19.4 % (21.2-54.2); Mean Corpuscular HGB Conc 30.7 GM/DL (32-36); Mean Corpuscular Volume 114.1 FL (87-102); Mean Platelet Volume 8.7 FL (9.6-12.0); Monocytes % 9.5 % (1.7-12.7); Neutrophils % 65.9 % (38.7-73.9); Platelet Count 253 T/CUMM (130-400); Red Blood Count 2.83 MC/CUMM (3.8-5.5); Red Cell Distribution Width 15.7 % (9.3-17.3); White Blood Count 9.1 T/CUMM (4-12)
[2020-07-15 12:18] LABS: Sodium 136 MMOL/L (136-145)
[2020-07-15 12:20] LABS: Calcium 8.8 MG/DL (8.5-10.1)
[2020-07-15 12:21] LABS: Albumin 3.3 G/DL (3.4-5.0); Carbon Dioxide 7 MMOL/L (21-32)
[2020-07-15 12:22] LABS: Blood Urea Nitrogen 90 MG/DL (7-18); Glucose 88 MG/DL (74-106)
[2020-07-15 12:24] LABS: Estimated Glom Filtration Rate 23 ML/MIN
[2020-07-15 12:25] LABS: Alanine Aminotransferase 34 U/L (16-61); Aspartate Amino Transferase 22 U/L (0-37)
[2020-07-15 12:26] LABS: Bilirubin,Total < 0.39 MG/DL (0.2-1.0); Total Protein 7.3 G/DL (6.4-8.2)
[2020-07-15 12:28] LABS: Alkaline Phosphatase 230 U/L (45-117)
[2020-07-15 13:02] LABS: INR 1.1
[2020-07-15] MEDS ORDERED: MORPHINE 4 MG/1 ML VIAL IV PRN (14:50)
[2020-07-15] MEDS ORDERED: ACETAMINOPHEN 325 MG TABLET PO PRN (14:50)
[2020-07-15] MEDS ORDERED: ALBUTEROL 2.5 MG/3 ML NEB RESP TX PRN ×2 (14:50→14:55)
[2020-07-15] MEDS ORDERED: DOCUSATE SODIUM 100 MG CAPSULE PO PRN (14:50)
[2020-07-15] MEDS ORDERED: BISACODYL 5 MG TABLET PO PRN (14:55)
[2020-07-15] MEDS ORDERED: INSULIN REGULAR 100 UNIT/ML IV STA (14:58)
[2020-07-15] MEDS ORDERED: CITRIC ACID/SODIUM CITRATE 30 ML UDCUP PO SCH (15:00)
[2020-07-15] MEDS ORDERED: SODIUM CHLORIDE 0.9% 500 ML IV ONE (15:01)
[2020-07-15] MEDS ORDERED: DEXTROSE 50% 25 GM/50 ML VIAL IV STA (15:07)
[2020-07-15] MEDS ORDERED: CALCIUM GLUCONATE 1,000 MG in SODIUM CHLORIDE 0.9% 100 ML IV ONE (15:10)
[2020-07-15 15:13] LABS: ABG Base Excess -19.6 MMOL/L (-2.5-2.5); ABG HCO3 9.9 MMOL/L (20-26); ABG Oxygen Saturation 98.5 % (95-100); ABG PH 7.243 (7.35-7.45); ABG TCO2 6.3 MMOL/L (23-27); Allen Test Positive
[2020-07-15 15:19] LABS: Risk Ratio 1.96; VLDL CHOLESTEROL 15.8 MG/DL
[2020-07-15 15:23] LABS: ABG PCO2 15.6 MM HG (35-48)
[2020-07-15 15:36] LABS: Calcium 8.4 MG/DL (8.5-10.1); Osmolality,Calculated 301.8 MOS/KG (273-304)
[2020-07-15 15:40] LABS: Potassium 7.3 MMOL/L (3.5-5.1)
[2020-07-15] MEDS ORDERED: CALCIUM GLUCONATE 1,000 MG/10 ML VIAL IV ONE (15:44)
[2020-07-15] MEDS: GABAPENTIN 300 MG CAPSULE PO SCH ×2 (15:50→21:17)
[2020-07-15] MEDS ORDERED: SODIUM BICARBONATE 50 MEQ/50 ML VIAL IV STA (16:26)
[2020-07-15] MEDS ORDERED: SODIUM BICARBONATE 50 MEQ/50 ML VIAL IV ONE ×2 (16:37→23:56)
[2020-07-15] MEDS ORDERED: MAGNESIUM SULF RIDER 4 GM/100 ML PREMIX IV PRN (16:42)
[2020-07-15] MEDS ORDERED: MAGNESIUM SULF RIDER 2 GM/50 ML PREMIX IV PRN (16:42)
[2020-07-15] MEDS ORDERED: carvediloL 3.125 MG TABLET PO SCH (17:00)
[2020-07-15] MEDS: SODIUM BICARB INJ 150 MEQ in DEXTROSE 5% 1,000 ML IV SCH (17:29)
[2020-07-15] MEDS: ENOXAPARIN 30 MG/0.3 ML SYRINGE SUBCUT SCH (18:26)
[2020-07-15] MEDS: SODIUM ZIRCONIUM CYCLOSILICATE 10 GM PACK PO SCH ×2 (19:10→19:32)
[2020-07-15 20:54] LABS: Calcium 8.6 MG/DL (8.5-10.1); Osmolality,Calculated 307.5 MOS/KG (273-304)
[2020-07-15 20:56] LABS: Potassium 6.8 MMOL/L (3.5-5.1)
[2020-07-15] MEDS: allopurinoL 100 MG TABLET PO SCH (21:16)
[2020-07-15 23:56] LABS: Calcium 8.3 MG/DL (8.5-10.1); Osmolality,Calculated 306.4 MOS/KG (273-304)
[2020-07-16 00:05] LABS: Potassium 6.3 MMOL/L (3.5-5.1)
[2020-07-16 04:15] LABS: Basophils % 0.3 % (0.0-0.8); Eosinophils # 0.1 10*3/uL (0.0-0.87); Eosinophils % 1.4 % (0.00-10.9); Hematocrit 25.8 VOL% (42.0-52.0); Hemoglobin 8.2 GM/DL (14.0-18.0); Immature Granulocytes % 1.4 %; Immature Granulocytes Absolute 0.09 #; Lymphocytes # 1.5 10*3/uL (1.4-4.0); Lymphocytes % 23.3 % (21.2-54.2); Mean Corpuscular HGB Conc 31.8 GM/DL (32-36); Mean Corpuscular Volume 109.8 FL (87-102); Mean Platelet Volume 8.4 FL (9.6-12.0); Neutrophils % 63.6 % (38.7-73.9); Platelet Count 194 T/CUMM (130-400); Red Blood Count 2.35 MC/CUMM (3.8-5.5); Red Cell Distribution Width 16.1 % (9.3-17.3); White Blood Count 6.3 T/CUMM (4-12)
[2020-07-16 04:32] LABS: Calcium 8.2 MG/DL (8.5-10.1); Osmolality,Calculated 307.3 MOS/KG (273-304); Potassium 5.4 MMOL/L (3.5-5.1)
[2020-07-16] MEDS: CLOPIDOGREL 75 MG TABLET PO SCH (08:59)
[2020-07-16] MEDS: GABAPENTIN 300 MG CAPSULE PO SCH ×3 (08:59→21:28)
[2020-07-16] MEDS: SODIUM ZIRCONIUM CYCLOSILICATE 10 GM PACK PO SCH ×3 (08:59→21:28)
[2020-07-16] MEDS: allopurinoL 100 MG TABLET PO SCH ×2 (08:59→21:28)
[2020-07-16] MEDS: FINASTERIDE 5 MG TABLET PO SCH (08:59)
[2020-07-16] MEDS: LUBIPROSTONE 24 MCG CAPSULE PO SCH (08:59)
[2020-07-16] MEDS: PANTOPRAZOLE 40 MG TABLET PO SCH (08:59)
[2020-07-16] MEDS: TAMSULOSIN 0.4 MG CAPSULE PO SCH (08:59)
[2020-07-16] MEDS ORDERED: hydrALAZINE 25 MG TABLET PO SCH (09:00)
[2020-07-16] MEDS: CALCIUM CARBONATE CHEW 500 MG TABLET PO SCH (09:00)
[2020-07-16] MEDS ORDERED: TACROLIMUS 0.5 MG CAPSULE PO SCH (09:00)
[2020-07-16] MEDS ORDERED: MAGNESIUM OXIDE 400 MG TABLET PO SCH (09:00)
[2020-07-16] MEDS: ASPIRIN EC 81 MG TABLET PO SCH (09:00)
[2020-07-16] MEDS: FLUCONAZOLE 200 MG TABLET PO SCH (10:21)
[2020-07-16] MEDS: predniSONE 5 MG TABLET PO SCH (10:21)
[2020-07-16 10:29] LABS: Bilirubin,Urine Negative (Negative); Blood, Urine Negative (Negative); Glucose,Urine (UA) Negative (Negative); Ketones,Urine Negative (Negative); Mucus,Urine Occasional /LPF (Occasional); Nitrite,Urine Negative (Negative); Protein,Urine Negative; RBC,Urine <1 /HPF (0-4); Squamous Epithelial Cell,Urine Occasional /HPF (0-10); Urine Appearance CLEAR (Clear); Urine Color Straw (Yellow); Urine Specific Gravity 1.011 (1.001-1.035); Urine Urobilinogen < 2.0 EU/DL (0.2-1.0)
[2020-07-16 13:50] LABS: Calcium 8.1 MG/DL (8.5-10.1); Osmolality,Calculated 303.5 MOS/KG (273-304); Potassium 4.7 MMOL/L (3.5-5.1)
[2020-07-16] MEDS: ENOXAPARIN 30 MG/0.3 ML SYRINGE SUBCUT SCH (15:00)
[2020-07-16] MEDS: SODIUM BICARB INJ 150 MEQ in DEXTROSE 5% 1,000 ML IV SCH (17:00)
[2020-07-16] MEDS: TACROLIMUS 0.5 MG CAPSULE PO SCH (21:28)
[2020-07-16] MEDS: ATORVASTATIN 40 MG TABLET PO SCH (21:28)
[2020-07-17 05:20] LABS: Basophils % 0.5 % (0.0-0.8); Eosinophils # 0.1 10*3/uL (0.0-0.87); Eosinophils % 3.2 % (0.00-10.9); Hematocrit 24.9 VOL% (42.0-52.0); Hemoglobin 8.3 GM/DL (14.0-18.0); Immature Granulocytes % 1.7 %; Immature Granulocytes Absolute 0.07 #; Lymphocytes # 1.4 10*3/uL (1.4-4.0); Lymphocytes % 33.4 % (21.2-54.2); Mean Corpuscular HGB Conc 33.3 GM/DL (32-36); Mean Corpuscular Volume 105.1 FL (87-102); Mean Platelet Volume 8.6 FL (9.6-12.0); Monocytes % 12.8 % (1.7-12.7); Neutrophils % 48.4 % (38.7-73.9); Platelet Count 198 T/CUMM (130-400); Red Blood Count 2.37 MC/CUMM (3.8-5.5); Red Cell Distribution Width 15.7 % (9.3-17.3); White Blood Count 4.1 T/CUMM (4-12)
[2020-07-17 05:34] LABS: Calcium 8.3 MG/DL (8.5-10.1); Osmolality,Calculated 294.5 MOS/KG (273-304); Potassium 4.1 MMOL/L (3.5-5.1)
[2020-07-17 05:35] LABS: Uric Acid 4.9 MG/DL (3.5-7.2)
[2020-07-17 05:40] LABS: Folate 7.69 NG/ML (5.38-24.0)
[2020-07-17] MEDS: predniSONE 5 MG TABLET PO SCH (08:53)
[2020-07-17] MEDS: FLUCONAZOLE 200 MG TABLET PO SCH (08:53)
[2020-07-17] MEDS: LUBIPROSTONE 24 MCG CAPSULE PO SCH (08:53)
[2020-07-17] MEDS: ASPIRIN EC 81 MG TABLET PO SCH (08:53)
[2020-07-17] MEDS: CALCIUM CARBONATE CHEW 500 MG TABLET PO SCH (08:53)
[2020-07-17] MEDS: GABAPENTIN 300 MG CAPSULE PO SCH ×3 (08:53→21:24)
[2020-07-17] MEDS: SODIUM ZIRCONIUM CYCLOSILICATE 10 GM PACK PO SCH (08:54)
[2020-07-17] MEDS: CLOPIDOGREL 75 MG TABLET PO SCH (08:54)
[2020-07-17] MEDS: TAMSULOSIN 0.4 MG CAPSULE PO SCH (08:54)
[2020-07-17] MEDS: TACROLIMUS 0.5 MG CAPSULE PO SCH ×2 (08:54→21:24)
[2020-07-17] MEDS: PANTOPRAZOLE 40 MG TABLET PO SCH (08:54)
[2020-07-17] MEDS: allopurinoL 100 MG TABLET PO SCH ×2 (08:54→21:24)
[2020-07-17] MEDS: FINASTERIDE 5 MG TABLET PO SCH (08:54)
[2020-07-17] MEDS ORDERED: NITROGLYCERIN SL 0.4 MG TABLET SL PRN (10:41)
[2020-07-17] MEDS ORDERED: CALCIUM CARBONATE CHEW 500 MG TABLET PO ONE (12:49)
[2020-07-17] MEDS: ONDANSETRON 4 MG/2 ML VIAL IV PRN ×2 (13:07→18:33)
[2020-07-17] MEDS ORDERED: CYANOCOBALAMIN 1000 MCG/1 ML VIAL IM SCH (14:00)
[2020-07-17] MEDS: ENOXAPARIN 30 MG/0.3 ML SYRINGE SUBCUT SCH (15:01)
[2020-07-17] MEDS ORDERED: methylPREDNISolone ACETATE 40 MG/1 ML VIAL MISC INJ ONE (17:00)
[2020-07-17] MEDS ORDERED: LIDOCAINE 1% 20 ML VIAL MISC INJ ONE (17:01)
[2020-07-17] MEDS: SODIUM BICARB INJ 150 MEQ in DEXTROSE 5% 1,000 ML IV SCH (18:18)
[2020-07-17] MEDS: ATORVASTATIN 40 MG TABLET PO SCH (21:24)
[2020-07-18 05:18] LABS: Basophils % 0.8 % (0.0-0.8); Eosinophils # 0.1 10*3/uL (0.0-0.87); Eosinophils % 3.1 % (0.00-10.9); Hematocrit 26.8 VOL% (42.0-52.0); Hemoglobin 8.8 GM/DL (14.0-18.0); Immature Granulocytes Absolute 0.04 #; Lymphocytes # 1.5 10*3/uL (1.4-4.0); Lymphocytes % 39.2 % (21.2-54.2); Mean Corpuscular HGB Conc 32.8 GM/DL (32-36); Mean Corpuscular Volume 105.9 FL (87-102); Mean Platelet Volume 8.8 FL (9.6-12.0); Monocytes % 14.8 % (1.7-12.7); Neutrophils % 41.1 % (38.7-73.9); Platelet Count 224 T/CUMM (130-400); Red Blood Count 2.53 MC/CUMM (3.8-5.5); Red Cell Distribution Width 15.1 % (9.3-17.3); White Blood Count 3.9 T/CUMM (4-12)
[2020-07-18 05:54] LABS: Calcium 8.5 MG/DL (8.5-10.1); Osmolality,Calculated 291.3 MOS/KG (273-304); Potassium 4.1 MMOL/L (3.5-5.1)
[2020-07-18] MEDS ORDERED: LIDOCAINE 1% 20 ML VIAL MISC INJ ONE (07:30)
[2020-07-18] MEDS ORDERED: methylPREDNISolone ACETATE 40 MG/1 ML VIAL MISC INJ ONE (07:30)
[2020-07-18] MEDS: ONDANSETRON 4 MG/2 ML VIAL IV PRN ×2 (07:38→11:18)
[2020-07-18] MEDS: allopurinoL 100 MG TABLET PO SCH (08:33)
[2020-07-18] MEDS: LUBIPROSTONE 24 MCG CAPSULE PO SCH (08:33)
[2020-07-18] MEDS: FINASTERIDE 5 MG TABLET PO SCH (08:34)
[2020-07-18] MEDS: CLOPIDOGREL 75 MG TABLET PO SCH (08:34)
[2020-07-18] MEDS: TAMSULOSIN 0.4 MG CAPSULE PO SCH (08:34)
[2020-07-18] MEDS: predniSONE 5 MG TABLET PO SCH (08:34)
[2020-07-18] MEDS: ASPIRIN EC 81 MG TABLET PO SCH (08:34)
[2020-07-18] MEDS: FLUCONAZOLE 200 MG TABLET PO SCH (08:34)
[2020-07-18] MEDS: TACROLIMUS 0.5 MG CAPSULE PO SCH (08:35)
[2020-07-18] MEDS: GABAPENTIN 300 MG CAPSULE PO SCH ×2 (08:35→14:23)
[2020-07-18] MEDS: PANTOPRAZOLE 40 MG TABLET PO SCH (08:35)
[2020-07-18] MEDS: CALCIUM CARBONATE CHEW 500 MG TABLET PO SCH (08:35)
[2020-07-18] MEDS ORDERED: FOLIC ACID 1 MG TABLET PO SCH (09:00)
[2020-07-18] MEDS ORDERED: ISOSORBIDE MONONITRATE 30 MG TABLET PO SCH (10:30)
[2020-07-18] MEDS ORDERED: carvediloL 6.25 MG TABLET PO SCH (10:30)
[2020-07-18 11:20] VITALS: BP 153/76
[2020-07-18] MEDS ORDERED: MAGNESIUM CITRATE 300 ML BOTTLE PO ONE (14:41)
[2020-07-18] MEDS ORDERED: hydrALAZINE 25 MG TABLET PO SCH (15:00)
[2020-07-18] MEDS: SODIUM BICARB INJ 150 MEQ in DEXTROSE 5% 1,000 ML IV SCH (15:40)
== END 2020-07-18 16:05 | DRG 641 ==
LOC: EDBD → EDUNIT# → N.ED 11:20 → N.EDINP 14:50 → SUATTDRO 14:50 → N.CC 16:45 → N.TELES 07-16 14:15
PROVIDERS: ADMIT Internal Medicine; ATTEND Internal Medicine